=== PATIENT | male | born 1955 | race Caucasian/White ===

== ENCOUNTER 2016-08-28 10:36 | Inpatient (IN) | payer BC ==
[~2016-08-28] VITALS: Ht 160 cm; Wt 68.2 kg
[2016-08-28] VITALS (12 sets, daily range): BP systolic 114–144; BP diastolic 64–80; PULSE 72–102; RESP 14; TEMP 95.2–98.8; O2SAT 98–100
[2016-08-28] MEDS ORDERED: PROPOFOL 1000 MG/100 ML INJ 100 ML ONE (10:41)
[2016-08-28] MEDS ORDERED: MANNITOL INJ 50 ML ONE ×3 (10:42→11:53)
[2016-08-28] MEDS ORDERED: LIDOCAINE HCL 2% 100 MG/5 ML SYRINGE ONE (10:44)
[2016-08-28] MEDS ORDERED: ENALAPRILAT 1.25 MG/ML VIAL IV PRN (11:00)
[2016-08-28] MEDS ORDERED: SODIUM CHLORIDE 0.9% FLUSH 10 ML FLUSH IV FLUSH PRN (11:00)
[2016-08-28] MEDS ORDERED: MISCELLANEOUS NURSING INFORMATION XX SCH ×2 (11:00→14:30)
[2016-08-28] MEDS ORDERED: ONDANSETRON HCL 4 MG/2 ML VIAL IV PRN ×3 (11:00→14:30)
[2016-08-28] MEDS ORDERED: PROPOFOL 1000 MG/100 ML INJ 100 ML IV SCH ×2 (11:00→11:15)
[2016-08-28] MEDS ORDERED: CHLORHEXIDINE GLUCONATE 2 % 1 PACK (2 CLOTHS) TOP PRN ×2 (11:00→14:30)
[2016-08-28] MEDS ORDERED: fentaNYL DRIP 250 ML IV SCH (11:00)
[2016-08-28] MEDS ORDERED: SODIUM CHLOR 0.9% 1000 ML INJ 1,000 ML IV SCH (11:00)
[2016-08-28 11:03] LABS: I-STAT POTASSIUM 3.3 MMOL/L (3.5-4.9)
[2016-08-28 11:04] LABS: AUTOMATED NEUTROPHIL # 5.5 TH/MM3 (1.8-7.7); BASOPHIL # 0.1 TH/MM3 (0-0.2); EOSINOPHIL # 0.4 TH/MM3 (0-0.4); EOSINOPHIL % 4.4 % (0.0-4.0); HEMATOCRIT 43.5 % (39.0-51.0); HEMO FLAGS DIFF FINAL; LYMPHOCYTE # 3.2 TH/MM3 (1.0-4.8); MEAN CELL VOLUME 86.8 FL (80.0-100.0); MEAN CORPUSCULAR HEMOGLOBIN 29.5 PG (27.0-34.0); MONO % 5.2 % (0.0-8.0); NEUT % 56.4 % (16.0-70.0); PLATELET COUNT 231 TH/MM3 (150-450); RED BLOOD COUNT 5.01 MIL/MM3 (4.50-5.90); RED CELL DISTRIBUTION WIDTH 13.3 % (11.6-17.2); WHITE BLOOD COUNT 9.8 TH/MM3 (4.0-11.0)
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
[2016-08-28 11:07] LABS: APTT (PATIENT) 21.6 SEC (24.3-30.1); PROTHROMBIN TIME - PATIENT 10.7 SEC (9.8-11.6)
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
[2016-08-28] MEDS ORDERED: ETOMIDATE 20 MG/10 ML VIAL IVP ONE (11:15)
[2016-08-28] MEDS ORDERED: MANNITOL 12.5 GM/50 ML VIAL IV ONE (11:15)
[2016-08-28] MEDS ORDERED: SODIUM CHLORIDE 0.9% FLUSH 10 ML FLUSH IVF PRN (11:15)
[2016-08-28] MEDS ORDERED: ROCURONIUM INJ 50 MG/5 ML VIAL IV ONE (11:15)
[2016-08-28] MEDS ORDERED: SUCCINYLCHOLINE CHLORIDE 200 MG/10 ML VIAL IVP ONE (11:15)
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
[2016-08-28] MEDS ORDERED: IOHEXOL 350 MG/ML 10 ML VIAL (for RAD DIAG) IV ONE (11:20)
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
[2016-08-28] MEDS ORDERED: SUCCINYLCHOLINE CHLORIDE 200 MG/10 ML VIAL ONE (11:55)
[2016-08-28] MEDS ORDERED: PROPOFOL 200 MG/20 ML AMP IV ONE (12:00)
[2016-08-28] MEDS ORDERED: ePHEDrine/NS 25 MG/5 ML SYR IV ONE (12:00)
[2016-08-28] MEDS ORDERED: LACTATED RINGER'S 1000 ML INJ 1,000 ML IV ONE (12:00)
[2016-08-28] MEDS ORDERED: SODIUM CHLORID 0.9% 500 ML INJ 500 ML IV ONE (12:00)
[2016-08-28] MEDS ORDERED: PHENYLEPH/NS 1000 MCG/10 ML SYR IV ONE (12:00)
[2016-08-28] MEDS ORDERED: ceFAZolin 2 GM PREMIX 50 ML ONE (12:22)
[2016-08-28] MEDS ORDERED: VANCOMYCIN HCL 1000 MG VIAL ONE (12:22)
[2016-08-28] MEDS ORDERED: LIDOCAINE 1%/EPINEPHrine 1:100,000 SOLN 30 ML VIAL OTHER ONE (12:24)
[2016-08-28] MEDS ORDERED: THROMBIN (TOPICAL) 5,000 UNIT VIAL TOP ONE (12:24)
[2016-08-28] MEDS ORDERED: GENTAMICIN SULFATE 80 MG/2 ML VIAL IRRIGATION ONE (12:24)
[2016-08-28] MEDS ORDERED: GELFOAM SIZE 100 TOP ONE (12:24)
[2016-08-28] MEDS ORDERED: fentaNYL CITRATE 250 MCG/5 ML AMP ONE (12:30)
[2016-08-28] MEDS ORDERED: levETIRAcetam 500 MG/5 ML VIAL IV ONE (12:30)
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
[2016-08-28 12:59] LABS: BLOOD GAS BASE EXCESS -4.3 mmol/L (-2-2); BLOOD GAS CARBOXYHEMOGLOBIN 1.4 % (0-4); BLOOD GAS HCO3 20 mmol/L (22-26); BLOOD GAS METHEMOGLOBIN 1.1 % (0-2); BLOOD GAS O2 HGB SATURATION 97 % (90-100); BLOOD GAS PCO2 34 mmHg (38-42); BLOOD GAS PO2 266 mmHg (61-120); BLOOD GAS TOTAL HGB 12.7 G/DL (12.0-16.0); CRITICAL VALUE NO; FIO2 100 %; OXYGEN DEVICE VENTILATOR; TEMP CORR TO 98.6
[2016-08-28 13:00] LABS: DRAW SITE ART LINE; HEMATOCRIT 37.4 % (39.0-51.0); REVIEW FLAG FINAL; STAT YES
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
[2016-08-28] MEDS ORDERED: MORPHINE SULFATE 4 MG/ML INJ IV PUSH PRN ×2 (13:15)
[2016-08-28] MEDS ORDERED: CALCIUM GLUCONATE 10% 1 GM/10 ML VIAL IV PRN (13:15)
[2016-08-28] MEDS ORDERED: BISACODYL 10 MG SUPP RECTAL PRN ×2 (13:15→14:30)
[2016-08-28] MEDS ORDERED: ACETAMINOPHEN 325 MG TAB PO PRN (13:15)
[2016-08-28] MEDS ORDERED: ACETAMINOPHEN/HYDROcodone 325 MG/10 MG TAB PO PRN ×2 (13:15)
[2016-08-28] MEDS ORDERED: MAGNESIUM SULFATE INJ 4 GM in SODIUM CHLORIDE 0.9% INJ 100 ML IV PRN (13:15)
[2016-08-28] MEDS ORDERED: POTASSIUM CHLOR 20 MEQ PREMIX 100 ML IV PRN (13:15)
[2016-08-28] MEDS ORDERED: SODIUM CHLORIDE 0.9% FLUSH 5 ML FLUSH IVF PRN (13:15)
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
[2016-08-28] MEDS ORDERED: PHENYLEPHRINE HCL 10 MG/ML VIAL ONE ×2 (13:53→17:52)
[2016-08-28] MEDS: levETIRAcetam INJ 500 MG in SODIUM CHLORIDE 0.9% INJ 100 ML IV SCH (14:00)
[2016-08-28] MEDS ORDERED: PANTOPRAZOLE SODIUM 40 MG VIAL IVP SCH (14:00)
[2016-08-28] MEDS ORDERED: NOREPINEPHRINE 4 MG/4 ML AMP ONE (14:21)
[2016-08-28 14:30] LABS: BLOOD GAS BASE EXCESS -5.9 mmol/L (-2-2); BLOOD GAS CARBOXYHEMOGLOBIN 0.8 % (0-4); BLOOD GAS HCO3 18 mmol/L (22-26); BLOOD GAS METHEMOGLOBIN 0.9 % (0-2); BLOOD GAS O2 HGB SATURATION 98 % (90-100); BLOOD GAS OXYGEN CONTENT 16.3 Vol % (12.0-20.0); BLOOD GAS PCO2 33 mmHg (38-42); BLOOD GAS PO2 224 mmHg (61-120); BLOOD GAS TOTAL HGB 11.5 G/DL (12.0-16.0); CRITICAL VALUE NO; TEMP CORR TO 98.6
[2016-08-28] MEDS ORDERED: MAGNESIUM HYDROXIDE SUSP 30 ML CUP PO PRN (14:30)
[2016-08-28] MEDS ORDERED: PANTOPRAZOLE SODIUM 40 MG VIAL IV SCH (14:30)
[2016-08-28] MEDS ORDERED: SENNOSIDES 8.6 MG TAB PO PRN (14:30)
[2016-08-28] MEDS ORDERED: LACTULOSE SYRUP 20 GM/30 ML CUP PO PRN (14:30)
[2016-08-28 14:31] LABS: DRAW SITE ART LINE; FIO2 40 %; OXYGEN DEVICE VENTILATOR; STAT YES; VENT SETTINGS PRVC12/550/PEEP5IT1.
--- NOTE | 2016-08-28 15:07 | RADRPT ---
EXAM DATE/TIME: 08/28/2016 14:34 [facility] COMPARISON: No previous studies available for comparison. INDICATIONS : Post intubation. MEDICAL HISTORY : None. SURGICAL HISTORY : None. ENCOUNTER: Initial ACUITY: 1 day PAIN SCORE: Non-responsive. LOCATION: Bilateral chest FINDINGS: A single view of the chest demonstrates the lungs to be symmetrically aerated without evidence of mas s, infiltrate or effusion. Endotracheal tube tip 4 cm above caity. Nasogastric tube tip in stomach. Right jugular central line with tip in the cavoatrial junction. No pneumothorax. The cardiomediastin al contours are unremarkable. Osseous structures are intact. CONCLUSION: No acute disease. Sebastián Whyte MD on August 28, 2016 at 15:04 Board Certified Radiologist. This report was verified electronically.
[2016-08-28] MEDS ORDERED: LIDOCAINE HCL 1% 50 ML VIAL INFIL ONE (15:45)
[2016-08-28] MEDS ORDERED: 3% SALINE INJ 500 ML IV ONE ×2 (16:00→22:00)
[2016-08-28] MEDS: ceFAZolin 2 GM PREMIX 50 ML IV SCH ×2 (16:32→23:35)
[2016-08-28] MEDS: NS + KCL 20 MEQ INJ 1,000 ML IV SCH (16:32)
[2016-08-28] MEDS ORDERED: SODIUM CHLORIDE 23.4% INJ 240 MEQ in SYRINGE/BAG 1 EA IV ONE (17:15)
[2016-08-28 17:21] LABS: MAGNESIUM 1.7 MG/DL (1.5-2.5)
[2016-08-28] MEDS ORDERED: TERBUTALINE INJ 1 MG/ML AMP SQ PRN ×2 (18:00→22:15)
[2016-08-28] MEDS ORDERED: PHENYLEPHRINE INJ 160 MG in DEXTROSE 5% IN WATE 500 ML INJ 484 ML IV SCH ×2 (18:00)
[2016-08-28] MEDS ORDERED: LIDOCAINE HCL 1% 20 ML VIAL E-TRACHE PRN (18:30)
[2016-08-28] MEDS ORDERED: fentaNYL CITRATE 250 MCG/5 ML AMP IV ONE (18:30)
[2016-08-28] MEDS: CHLORHEXIDINE 0.12% (ORAL KIT) 15 ML CUP MT SCH (20:00)
[2016-08-28 20:44] LABS: APTT (PATIENT) 23.1 SEC (24.3-30.1); PROTHROMBIN TIME - PATIENT 11.4 SEC (9.8-11.6)
[2016-08-28] MEDS ORDERED: DOCUSATE SODIUM 100 MG/10 ML UDC PO SCH (21:00)
[2016-08-28] MEDS ORDERED: DOCUSATE SODIUM 100 MG CAP PO SCH (21:00)
[2016-08-28] MEDS: SODIUM CHLORIDE 0.9% FLUSH 5 ML FLUSH IVF SCH (21:00)
[2016-08-28] MEDS: 3% SALINE INJ 500 ML IV SCH (22:00)
[2016-08-28] MEDS ORDERED: PHENYLEPHRINE IV SCH (22:15)
[2016-08-28] MEDS ORDERED: SODIUM CHLOR 0.9% IV SCH (22:15)
[2016-08-28] MEDS ORDERED: PHENYLEPHRINE HCL 80 MG/D5W 492 ML ADMIX IV SCH ×2 (22:15)
[2016-08-28] MEDS: PROPOFOL 1000 MG/100 ML INJ 100 ML IV SCH (22:16)
[2016-08-28] MEDS: fentaNYL DRIP 250 ML IV SCH (22:16)
[2016-08-28] MEDS: DOCUSATE SODIUM 50 MG/SENNA 8.6 MG TAB PO SCH (22:16)
[2016-08-28] MEDS ORDERED: PHENYLEPHRINE INJ 160 MG in SODIUM CHLORID 0.9% 500 ML INJ 484 ML IV SCH (22:30)
[2016-08-28] MEDS: NOREPINEPHRINE INJ 4 MG in SODIUM CHLOR 0.9% 250 ML INJ 246 ML IV SCH (22:41)
[2016-08-29] VITALS (19 sets, daily range): BP systolic 125–144; BP diastolic 60–73; PULSE 48–84; RESP 12–16; TEMP 96.8–99; O2SAT 100
[2016-08-29] MEDS: NS + KCL 20 MEQ INJ 1,000 ML IV SCH (02:00)
[2016-08-29] MEDS: levETIRAcetam INJ 500 MG in SODIUM CHLORIDE 0.9% INJ 100 ML IV SCH ×2 (02:16→14:00)
--- NOTE | 2016-08-29 03:08 | RADRPT ---
EXAM DATE/TIME: 08/29/2016 02:29 [facility] COMPARISON: CHEST SINGLE AP, August 28, 2016, 14:34. INDICATIONS : Short of breath. MEDICAL HISTORY : None. SURGICAL HISTORY : None. ENCOUNTER: Subsequent ACUITY: 1 day PAIN SCORE: 0/10 LOCATION: Bilateral chest FINDINGS: A single view of the chest demonstrates the lungs to be symmetrically aerated without evidence of mas s, infiltrate or effusion. The endotracheal tube and nasogastric tube are both in good position The cardiomediastinal contours are unremarkable. Osseous structures are intact. CONCLUSION: Normal examination. The endotracheal tube and nasogastric tube are both in good position Michoacano Hutchison MD on August 29, 2016 at 3:06 Board Certified Radiologist. This report was verified electronically.
[2016-08-29 03:49] LABS: BLOOD GAS BASE EXCESS -6.1 mmol/L (-2-2); BLOOD GAS HCO3 18 mmol/L (22-26); BLOOD GAS METHEMOGLOBIN 0.6 % (0-2); BLOOD GAS O2 HGB SATURATION 98 % (90-100); BLOOD GAS OXYGEN CONTENT 12.1 Vol % (12.0-20.0); BLOOD GAS PCO2 29 mmHg (38-42); BLOOD GAS PO2 173 mmHg (61-120); BLOOD GAS TOTAL HGB 8.5 G/DL (12.0-16.0); CRITICAL VALUE NO; OXYGEN DEVICE VENTILATOR; TEMP CORR TO 98.6
[2016-08-29 03:50] LABS: DRAW SITE ALINE; FIO2 30 %; STAT NO
[2016-08-29] MEDS ORDERED: CHLORHEXIDINE GLUCONATE 2 % 1 PACK (2 CLOTHS) TOP SCH (04:00)
[2016-08-29] MEDS: CHLORHEXIDINE GLUCONATE 2 % 1 PACK (2 CLOTHS) TOP SCH (04:00)
[2016-08-29] MEDS ORDERED: LIDOCAINE HCL 2% 100 MG/5 ML SYRINGE ONE (04:27)
[2016-08-29] MEDS ORDERED: EPINEPHrine HCL (1:10,000) 1 MG/10 ML SYRINGE ONE (04:27)
[2016-08-29] MEDS ORDERED: ATROPINE SULFATE 1 MG/10 ML SYRINGE ONE (04:27)
--- NOTE | 2016-08-29 05:33 | RADRPT ---
EXAM DATE/TIME: 08/29/2016 05:10 [place] COMPARISON: CT BRAIN W/O CONTRAST, August 28, 2016, 11:00. INDICATIONS : Follow up trauma; post craniotomy. RADIATION DOSE: 64.98 CTDIvol (mGy) MEDICAL HISTORY : None SURGICAL HISTORY : Craniotomy. ENCOUNTER: Subsequent ACUITY: 1 day PAIN SCALE: Non-responsive LOCATION: cranial TECHNIQUE: Multiple contiguous axial images were obtained of the head. Using automated exposure control and adj ustment of the mA and/or kV according to patient size, radiation dose was kept as low as reasonably a chievable to obtain optimal diagnostic quality images. FINDINGS: The patient's had a right sided craniotomy with [address] The bone flap remains rem caterina. There is a tiny amount remaining pneumocephalus. There is significant soft tissue edema and flu id overlying the drains. There is significant mass effect in the right cerebral hemisphere with shift of the third ventricle 7 mm from right to left, stable. There is continued opacification of the righ t lateral ventricle due to the mass effect. There is stable intra-axial hemorrhage in the right suprasellar cistern and MCA distribution imp roved from the previous study. There is some subarachnoid hemorrhage in the right side of the tentori um and in the right high parietal region unchanged. A left-sided frontal lobe intracranial pressure monitor has been placed and there is some surrounding hemorrhage which is new from the previous study. The hemorrhage measures 1.2 x 1.5 cm acr oss. There is continued narrowing of the right suprasellar cistern. The foramen magnum remains paten t. There some mild narrowing of the right paramesencephalic cisterns with some adjacent layering suba rachnoid hemorrhage unchanged CONCLUSION: Overall similar exam with significant edema and hemorrhage throughout the right cerebral hemisphere s tatus post craniotomy and 2 drains been placed. Left frontal pressure catheter placed with some surro unding hemorrhage measuring 12 x 15 mm. Michoacano Hutchison MD on August 29, 2016 at 5:24 Board Certified Radiologist. This report was verified electronically.
[2016-08-29 05:49] LABS: AUTOMATED NEUTROPHIL # 8.6 TH/MM3 (1.8-7.7); BASOPHIL % 0.1 % (0.0-2.0); HEMATOCRIT 24.3 % (39.0-51.0); HEMO FLAGS DIFF FINAL; LYMPH % 11.5 % (9.0-44.0); LYMPHOCYTE # 1.3 TH/MM3 (1.0-4.8); MEAN CORPUSCULAR HEMOGLOBIN 29.4 PG (27.0-34.0); MEAN CORPUSCULAR HGB CONC 33.4 % (32.0-36.0); MONO % 10.8 % (0.0-8.0); NEUT % 77.6 % (16.0-70.0); PLATELET COUNT 196 TH/MM3 (150-450); RED BLOOD COUNT 2.77 MIL/MM3 (4.50-5.90); RED CELL DISTRIBUTION WIDTH 13.4 % (11.6-17.2)
[2016-08-29 06:18] LABS: BICARBONATE 22.8 MEQ/L (21.0-32.0); MAGNESIUM 1.8 MG/DL (1.5-2.5)
[2016-08-29 06:45] LABS: CALCIUM-PROTEIN CORRECTED 7.4 MG/DL (8.5-10.1)
[2016-08-29] MEDS ORDERED: CALCIUM GLUCONATE INJ 1 GM in SODIUM CHLORIDE 0.9% INJ 100 ML IV ONE (07:00)
[2016-08-29] MEDS: MAGNESIUM SULFATE 1 GM PREMIX 100 ML IV SCH ×2 (08:08→08:45)
[2016-08-29] MEDS: MIDAZOLAM 100 MG/ML INJ 100 ML IV SCH (08:08)
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
[2016-08-29] MEDS: 3% SALINE INJ 500 ML IV SCH (08:46)
[2016-08-29] MEDS: PANTOPRAZOLE SOD 40 MG DELAYED RELEASE TAB PO SCH (08:47)
[2016-08-29] MEDS: SODIUM CHLORIDE 0.9% FLUSH 5 ML FLUSH IVF SCH ×2 (09:00→21:00)
[2016-08-29] MEDS: CHLORHEXIDINE 0.12% (ORAL KIT) 15 ML CUP MT SCH ×2 (09:53→20:00)
[2016-08-29] MEDS: ceFAZolin 2 GM PREMIX 50 ML IV SCH (09:53)
[2016-08-29] MEDS: PANTOPRAZOLE SODIUM 40 MG VIAL IVP SCH (09:53)
[2016-08-29] MEDS: DOCUSATE SODIUM 50 MG/SENNA 8.6 MG TAB PO SCH ×2 (09:54→21:25)
[2016-08-29] MEDS: fentaNYL DRIP 250 ML IV SCH ×2 (09:56→21:20)
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
--- NOTE | 2016-08-29 14:01 | HHI.CCPN ---
Subjective 24 Hour Review/Hospital Course 08/29/16 Patient is stable following emergent craniotomy with neurosurgery yesterday Repeat head CT shows postsurgical changes with small reaccumulation of blood Will continue to rest patient today and maintain cerebral perfusion pressures using vasopressors as necessary Objective Vital Signs Date Time Temp Pulse Resp B/P Pulse Ox O2 Delivery O2 Flow Rate FiO2 08/29/16 12:42 100 30 08/29/16 10:00 69 08/29/16 08:00 96.8 16 126/60 08/29/16 07:00 Mechanical Ventilator Intake and Output 08/28/16 08/28/16 08/28/16 07:59 15:59 23:59 Intake Total 1424 ml Output Total 60 ml 1170 ml Balance -60 ml 254 ml Result Diagram: 08/29/16 0535 08/29/16 1049 Other Results Laboratory Tests Test 08/28/16 08/29/16 14:18 03:39 Blood Gas Puncture Site ART [facility] [place] Blood Gas Patient Temperature 98.6 98.6 Blood Gas HCO3 18 mmol/L 18 mmol/L (22-26) (22-26) Blood Gas Base Excess -5.9 mmol/L -6.1 mmol/L (-2-2) (-2-2) Blood Gas Oxygen Saturation 98 % (90-100) 98 % (90-100) Arterial Blood pH 7.37 7.41 (7.380-7.420) (7.380-7.420) Arterial Blood Partial 33 mmHg (38-42) 29 mmHg (38-42) Pressure CO2 Arterial Blood Partial 224 mmHg 173 mmHg Pressure O2 (61-120) (61-120) Arterial Blood Oxygen Content 16.3 Vol % 12.1 Vol % (12.0-20.0) (12.0-20.0) Arterial Blood 0.8 % (0-4) 1.0 % (0-4) Carboxyhemoglobin Arterial Blood Methemoglobin 0.9 % (0-2) 0.6 % (0-2) Blood Gas Hemoglobin 11.5 G/DL 8.5 G/DL (12.0-16.0) (12.0-16.0) Oxygen Delivery Device VENTILATOR VENTILATOR Blood Gas Ventilator Setting [id number]. SEE COMMENT Blood Gas Inspired Oxygen 40 % 30 % Imaging Last [address] 08/29/16 0000 Signed Impressions: Service Date/Time: Monday, August 29, 2016 05:10 - CONCLUSION: Overall similar exam with significant edema and hemorrhage throughout the right cerebral hemisphere status post craniotomy and 2 drains been placed. Left frontal pressure catheter placed with some surrounding hemorrhage measuring 12 x 15 mm. Michoacano Hutchison MD Chest X-Ray 08/29/16 0000 Signed Impressions: Service Date/Time: Monday, August 29, 2016 02:29 - CONCLUSION: Normal examination. The endotracheal tube and nasogastric tube are both in good position Michoacano Hutchison MD Exam NURSING ADMINISTRATOR Intubated, sedated status post craniotomy, ICP currently 8 and have always been low Hemodynamic/Cardiac Regular rate and rhythm with intermittent bradycardia, stable Pulmonary/Respiratory Clear to auscultation bilaterally, requiring full ventilator support Abdomen/GI Nutrition Abdomen soft nontender nondistended Renal/I&O Stable with iatrogenic hypernatremia to prevent and treat brain swelling Hematologic Acute blood loss anemia, stable Urinary Catheter Assessment Urinary Catheter: Yes Assessment to: Continue Assessment and Plan Plan Neurologic-continue sedation and pain medication, maintain cerebral perfusion pressure and treat ICPs as needed Pulmonary-continue full ventilator support, wean as tolerated, aggressive pulmonary toilet Cardiac-continue hemodynamic monitoring, levothyroid to push mean arterial pressure in order to obtain proper cerebral perfusion pressure GI-start tube feeds and rapidly advanced to goal for nutritional support -continue Early for hemodynamic monitoring ID-no active issues FEN-start tube feeds today, continue to maintain hypernatremia in the 150-160 range Dispo-continue ICU care, patient remains critically ill with severe traumatic brain injury, acute respiratory failure, and dysphagia Total critical care time 35 minutes Jus Real MD Aug 29, 2016 14:01
[2016-08-29 16:52] LABS: MAGNESIUM 2.2 MG/DL (1.5-2.5)
[2016-08-29] MEDS ORDERED: POTASSIUM PHOSPHATE/SODIUM PHOSPHATE 250 MG TAB PO ONE (18:00)
[2016-08-29] MEDS: NOREPINEPHRINE INJ 4 MG in SODIUM CHLOR 0.9% 250 ML INJ 246 ML IV SCH (21:20)
[2016-08-30] VITALS (18 sets, daily range): BP systolic 132–150; BP diastolic 46–64; PULSE 65–98; RESP 15–19; TEMP 96.8–100.2; O2SAT 100
[2016-08-30] MEDS: levETIRAcetam INJ 500 MG in SODIUM CHLORIDE 0.9% INJ 100 ML IV SCH ×2 (02:40→13:36)
[2016-08-30 03:49] LABS: BLOOD GAS CARBOXYHEMOGLOBIN 1.1 % (0-4); BLOOD GAS HCO3 21 mmol/L (22-26); BLOOD GAS O2 HGB SATURATION 98 % (90-100); BLOOD GAS OXYGEN CONTENT 10.8 Vol % (12.0-20.0); BLOOD GAS PCO2 33 mmHg (38-42); BLOOD GAS PO2 170 mmHg (61-120); BLOOD GAS TOTAL HGB 7.6 G/DL (12.0-16.0); CRITICAL VALUE NO; OXYGEN DEVICE VENT; TEMP CORR TO 98.6
[2016-08-30 03:50] LABS: DRAW SITE ART LINE; FIO2 30 %; STAT NO; VENT SETTINGS 450/15 5PEEP
[2016-08-30] MEDS: MIDAZOLAM 100 MG/ML INJ 100 ML IV SCH (04:08)
[2016-08-30] MEDS: CHLORHEXIDINE GLUCONATE 2 % 1 PACK (2 CLOTHS) TOP SCH (04:10)
[2016-08-30 04:38] LABS: HEMATOCRIT 23.4 % (39.0-51.0); MEAN CELL VOLUME 86.6 FL (80.0-100.0); MEAN CORPUSCULAR HEMOGLOBIN 29.2 PG (27.0-34.0); MEAN CORPUSCULAR HGB CONC 33.7 % (32.0-36.0); PLATELET COUNT 134 TH/MM3 (150-450); REVIEW FLAG FINAL; WHITE BLOOD COUNT 9.8 TH/MM3 (4.0-11.0)
[2016-08-30 05:16] LABS: MAGNESIUM 2.1 MG/DL (1.5-2.5)
[2016-08-30] MEDS: 3% SALINE INJ 500 ML IV SCH (06:00)
[2016-08-30] MEDS: fentaNYL DRIP 250 ML IV SCH (06:50)
[2016-08-30] MEDS: NOREPINEPHRINE INJ 4 MG in SODIUM CHLOR 0.9% 250 ML INJ 246 ML IV SCH (06:54)
[2016-08-30] MEDS: PROPOFOL 1000 MG/100 ML INJ 100 ML IV SCH (06:55)
[2016-08-30 07:02] LABS: BICARBONATE 25.7 MEQ/L (21.0-32.0); POTASSIUM 3.1 MEQ/L (3.5-5.1)
[2016-08-30 07:20] LABS: CALCIUM-PROTEIN CORRECTED 7.9 MG/DL (8.5-10.1)
[2016-08-30] MEDS: CHLORHEXIDINE 0.12% (ORAL KIT) 15 ML CUP MT SCH ×2 (08:00→20:00)
[2016-08-30] MEDS ORDERED: ICU - D/C ICU ELECTROLYTE ORDERS PRN (08:45)
[2016-08-30] MEDS ORDERED: ICU - POTASSIUM PHOSPHATE MONOBASIC 500 MG TAB PO PRN (08:45)
[2016-08-30] MEDS ORDERED: ICU - POTASSIUM PHOSPHATE 30 MMOL/NS 250 ML IV PRN ×2 (08:45)
[2016-08-30] MEDS ORDERED: ICU - MAGNESIUM OXIDE 400 MG TAB PO PRN (08:45)
[2016-08-30] MEDS ORDERED: ICU - SODIUM PHOSPHATE 30 MMOL/NS 250 ML IV PRN ×2 (08:45)
[2016-08-30] MEDS ORDERED: ICU - CALL ORDERING PHYSICIAN PRN (08:45)
[2016-08-30] MEDS ORDERED: ICU - MAGNESIUM SULFATE 2 GM/NS 100 ML IV PRN ×2 (08:45)
[2016-08-30] MEDS ORDERED: POTASSIUM CHLORIDE 25 MEQ EFFERVESCENT TAB PO PRN (08:45)
[2016-08-30] MEDS ORDERED: ICU - POTASSIUM CHLORIDE/AQUEOUS SOLN 20 MEQ/100 ML IVPB IV PRN (08:45)
[2016-08-30] MEDS ORDERED: ICU - MAGNESIUM SULFATE 4 GM/NS 100 ML IV PRN ×2 (08:45)
[2016-08-30] MEDS: PANTOPRAZOLE SOD 40 MG DELAYED RELEASE TAB PO SCH (08:58)
[2016-08-30] MEDS: PANTOPRAZOLE SODIUM 40 MG VIAL IVP SCH (08:58)
[2016-08-30] MEDS: DOCUSATE SODIUM 50 MG/SENNA 8.6 MG TAB PO SCH ×2 (08:58→22:36)
[2016-08-30] MEDS: SODIUM CHLORIDE 0.9% FLUSH 5 ML FLUSH IVF SCH ×2 (08:58→21:00)
[2016-08-30] MEDS: ARTIFICIAL TEARS OPTH SOLN 15 ML BTL EACH EYE SCH ×2 (10:00→18:00)
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
[2016-08-30] MEDS ORDERED: LACTULOSE SYRUP 20 GM/30 ML CUP PO ONE (10:30)
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
[2016-08-30] MEDS ORDERED: SODIUM CHLOR 0.9% IV SCH (11:30)
[2016-08-30] MEDS ORDERED: NOREPINEPHRINE 16 MG/D5W 250 ML IV SCH ×2 (11:30)
[2016-08-30] MEDS ORDERED: NOREPINEPHRINE IV SCH (11:30)
[2016-08-30] MEDS: ICU - POTASSIUM CHLORIDE/AQUEOUS SOLN 40 MEQ/100 ML IVPB IV PRN (11:33)
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
[2016-08-30] MEDS: ACETAMINOPHEN 325 MG TAB PO PRN (13:35)
[2016-08-30 16:27] LABS: BICARBONATE 27.1 MEQ/L (21.0-32.0); POTASSIUM 3.3 MEQ/L (3.5-5.1)
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
[2016-08-30] MEDS ORDERED: POTASSIUM PHOSPHATE INJ 30 MMOL in SODIUM CHLOR 0.9% 250 ML INJ 250 ML IV ONE (16:45)
[2016-08-30 16:47] LABS: CALCIUM-PROTEIN CORRECTED 7.5 MG/DL (8.5-10.1)
[2016-08-30 17:33] LABS: BLOOD GAS BASE EXCESS 0.5 mmol/L (-2-2); BLOOD GAS CARBOXYHEMOGLOBIN 1.2 % (0-4); BLOOD GAS HCO3 24 mmol/L (22-26); BLOOD GAS METHEMOGLOBIN 0.7 % (0-2); BLOOD GAS O2 HGB SATURATION 98 % (90-100); BLOOD GAS OXYGEN CONTENT 11.5 Vol % (12.0-20.0); BLOOD GAS PCO2 34 mmHg (38-42); BLOOD GAS PO2 159 mmHg (61-120); BLOOD GAS TOTAL HGB 8.1 G/DL (12.0-16.0); CRITICAL VALUE NO; DRAW SITE ART LINE; FIO2 30 %; OXYGEN DEVICE VENTILATOR; TEMP CORR TO 98.6; VENT SETTINGS AC/19/450/+5
[2016-08-30 17:34] LABS: STAT NO
[2016-08-30] MEDS ORDERED: CALCIUM GLUCONATE INJ 1 GM in SODIUM CHLORIDE 0.9% INJ 100 ML IV ONE (18:30)
--- NOTE | 2016-08-30 21:25 | MG ---
cc: CCList Lab No: [id number] Date: 08/30/16 Age: Sex: M Race: TECHNIQUE 17 channel EEG. DESCRIPTION The background rhythm reveals generalized slowing with a frequency of 3-5 Hz. There is a burst suppression type of pattern. There is periodic sharp activity seen as well over the right hemisphere consistent with periodic lateralizing epileptiform discharges or PLEDS. They occur at a frequency of 1 every 3-10 seconds. No other lateralizing features are identified. Occasionally, there is some sharp activity of the left foot predominantly over the right. INTERPRETATION Abnormal study in the base of generalized slowing consistent with severe encephalopathy. In addition, periodic lateralizing epileptiform discharges are identified over the right hemisphere. MD SHANDA Shaikh/MYNOR /9:08 PM /9:21 PM
[2016-08-31] VITALS (19 sets, daily range): BP systolic 111–170; BP diastolic 50–69; PULSE 64–85; RESP 15–21; TEMP 97.7–99.5; O2SAT 100
[2016-08-31 00:26] LABS: POTASSIUM 2.9 MEQ/L (3.5-5.1)
[2016-08-31] MEDS: ICU - POTASSIUM CHLORIDE/AQUEOUS SOLN 40 MEQ/100 ML IVPB IV PRN ×2 (00:36→17:01)
[2016-08-31] MEDS: MIDAZOLAM 100 MG/ML INJ 100 ML IV SCH ×2 (00:37→15:55)
[2016-08-31] MEDS: PROPOFOL 1000 MG/100 ML INJ 100 ML IV SCH ×4 (00:38→22:48)
[2016-08-31] MEDS: fentaNYL DRIP 250 ML IV SCH (00:38)
[2016-08-31] MEDS: ARTIFICIAL TEARS OPTH SOLN 15 ML BTL EACH EYE SCH ×3 (02:00→17:01)
[2016-08-31] MEDS: levETIRAcetam INJ 500 MG in SODIUM CHLORIDE 0.9% INJ 100 ML IV SCH (02:41)
[2016-08-31 03:36] LABS: BLOOD GAS BASE EXCESS 0.8 mmol/L (-2-2); BLOOD GAS CARBOXYHEMOGLOBIN 1.4 % (0-4); BLOOD GAS HCO3 24 mmol/L (22-26); BLOOD GAS METHEMOGLOBIN 0.9 % (0-2); BLOOD GAS O2 HGB SATURATION 97 % (90-100); BLOOD GAS OXYGEN CONTENT 10.1 Vol % (12.0-20.0); BLOOD GAS PCO2 29 mmHg (38-42); BLOOD GAS PO2 156 mmHg (61-120); BLOOD GAS TOTAL HGB 7.2 G/DL (12.0-16.0); TEMP CORR TO 98.6
[2016-08-31 03:37] LABS: CRITICAL VALUE YES; OXYGEN DEVICE VENTILATOR
[2016-08-31 03:38] LABS: DRAW SITE ART LINE; STAT NO
[2016-08-31 03:45] LABS: VENT SETTINGS PRVC/AC
[2016-08-31 03:46] LABS: FIO2 30 %
[2016-08-31] MEDS: CHLORHEXIDINE GLUCONATE 2 % 1 PACK (2 CLOTHS) TOP SCH (04:00)
[2016-08-31 05:57] LABS: AUTOMATED NEUTROPHIL # 5.7 TH/MM3 (1.8-7.7); BASOPHIL % 0.2 % (0.0-2.0); EOSINOPHIL # 0.3 TH/MM3 (0-0.4); EOSINOPHIL % 3.6 % (0.0-4.0); LYMPH % 11.3 % (9.0-44.0); LYMPHOCYTE # 0.9 TH/MM3 (1.0-4.8); MEAN CELL VOLUME 85.4 FL (80.0-100.0); MEAN CORPUSCULAR HGB CONC 35.2 % (32.0-36.0); MONO % 11.2 % (0.0-8.0); NEUT % 73.7 % (16.0-70.0); PLATELET COUNT 117 TH/MM3 (150-450); RED BLOOD COUNT 2.44 MIL/MM3 (4.50-5.90); RED CELL DISTRIBUTION WIDTH 14.4 % (11.6-17.2); WHITE BLOOD COUNT 7.7 TH/MM3 (4.0-11.0)
[2016-08-31 06:01] LABS: HEMO FLAGS DIFF FINAL
[2016-08-31 06:02] LABS: HEMATOCRIT 20.8 % (39.0-51.0)
[2016-08-31 06:24] LABS: MAGNESIUM 2.1 MG/DL (1.5-2.5)
[2016-08-31] MEDS: CHLORHEXIDINE 0.12% (ORAL KIT) 15 ML CUP MT SCH ×2 (08:00→20:49)
[2016-08-31] MEDS: SODIUM CHLORIDE 0.9% FLUSH 5 ML FLUSH IVF SCH ×2 (09:00→20:49)
[2016-08-31] MEDS: PANTOPRAZOLE SODIUM 40 MG VIAL IVP SCH (09:00)
[2016-08-31] MEDS ORDERED: LACTULOSE SYRUP 20 GM/30 ML CUP PO SCH (09:00)
[2016-08-31] MEDS: DOCUSATE SODIUM 50 MG/SENNA 8.6 MG TAB PO SCH ×2 (09:00→20:49)
--- NOTE | 2016-08-31 09:12 | RADRPT ---
EXAM DATE/TIME: 08/31/2016 08:42 [place] COMPARISON: CT BRAIN W/O CONTRAST, August 29, 2016, 5:10. INDICATIONS : Follow up, cranial hemorrhage. Emergent craniotomy 3 days ago. RADIATION DOSE: 56.4 CTDIvol (mGy) MEDICAL HISTORY : Cardiac SURGICAL HISTORY : CABG ENCOUNTER: Subsequent ACUITY: 3 days PAIN SCALE: Non-responsive LOCATION: cranial TECHNIQUE: Multiple contiguous axial images were obtained of the head. Using automated exposure control and adj ustment of the mA and/or kV according to patient size, radiation dose was kept as low as reasonably a chievable to obtain optimal diagnostic quality images. FINDINGS: The examination demonstrates right-sided craniotomy. There is a small area of intraparenchymal hemorrhage measuring approximately 1.5 cm adjacent to the p atient's ICP. There is moderate extra-axial hemorrhage along the craniotomy defect. This is unchanged compared to p revious examination. There is a surgical drain in good position. The The examination demonstrates some loss of the dickerson right junction along the inferior aspect of the ri ght parietal cortex. There is approximately 4.5 mm of [id number] falcine shift. The shift is impro jamila when compared to prior exam. The ventricles are normal in size. Imaging through the posterior fossa demonstrates no hemorrhage layering along the tentorium. The four th ventricle is intact. CONCLUSION: 1. Interval reduction in the amount of [id number] falcine shift. This now measures approximately 4 .5 mm. the shift measured approximately 7.4 mm on previous. 2. Continued intraparenchymal and extra-axial hemorrhage as described above. 3. Patient is post right craniotomy with removal of most of the right parietal bone. Shahid Ross MD on August 31, 2016 at 9:07 Board Certified Radiologist. This report was verified electronically.
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
[2016-08-31] MEDS ORDERED: levETIRAcetam 1000 MG INJ 100 ML IV ONE (09:45)
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
[2016-08-31] MEDS ORDERED: POTASSIUM PHOSPHATE/SODIUM PHOSPHATE 250 MG TAB OG-TUBE ONE (10:00)
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
[2016-08-31 11:03] LABS: BLOOD GAS BASE EXCESS 0.8 mmol/L (-2-2); BLOOD GAS CARBOXYHEMOGLOBIN 1.3 % (0-4); BLOOD GAS HCO3 24 mmol/L (22-26); BLOOD GAS METHEMOGLOBIN 0.9 % (0-2); BLOOD GAS O2 HGB SATURATION 97 % (90-100); BLOOD GAS OXYGEN CONTENT 13.4 Vol % (12.0-20.0); BLOOD GAS PCO2 29 mmHg (38-42); BLOOD GAS PO2 154 mmHg (61-120); BLOOD GAS TOTAL HGB 9.5 G/DL (12.0-16.0); TEMP CORR TO 98.6
[2016-08-31 11:04] LABS: CRITICAL VALUE YES; DRAW SITE ART LINE; FIO2 30 %; NUMBER OF ARTERIAL PUNCTURES 0; OXYGEN DEVICE VENTILATOR; STAT NO; ULNAR PULSE PRESENT; VENT SETTINGS PRVC/18/450/0.85/+5
[2016-08-31 11:34] LABS: BACTERIA, URINE RARE /hpf; BLOOD, URINE SMALL (NEG); COMMENT (UR) CATH-CULTURE IND; CULTURE IF INDICATED CATH CULTURE IND; GLUCOSE,URINE 70 mg/dL (NEG); KETONE, URINE NEG (NEG); MUCUS URINE FEW /lpf (OCC); NITRITE,URINE NEG (NEG); PH, URINE 7.5 (5.0-8.5); URINE COLOR YELLOW (YELLW/STRAW)
[2016-08-31 11:41] LABS: BICARBONATE 25.6 MEQ/L (21.0-32.0); POTASSIUM 3.6 MEQ/L (3.5-5.1)
--- NOTE | 2016-08-31 11:44 | HHI.CCPN ---
Subjective 24 Hour Review/Hospital Course 08/29/16 Patient is stable following emergent craniotomy with neurosurgery yesterday Repeat head CT shows postsurgical changes with small reaccumulation of blood Will continue to rest patient today and maintain cerebral perfusion pressures using vasopressors as necessary 08/30/16 Patient remains critically ill, although off the vasopressors, he does require deep sedation to maintain his ICPs CT scan is consistent with severe traumatic brain injury and a guarded prognosis at this point 08/31/16 EEG revealed seizure activity, neurology has been consult Discussed prognosis with son at the bedside, also discussed the likely need for tracheostomy and gastrostomy tube placement Patient's ICP monitor is clotted, will require revision or new ICP monitor At this point will continue sedation and IV pain medication He's tolerating his tube feeds at goal and we will continue to maintain his sodium in the 150-160 range Objective Vital Signs Date Time Temp Pulse Resp B/P Pulse Ox O2 Delivery O2 Flow Rate FiO2 08/31/16 10:57 100 30 08/31/16 10:00 64 08/31/16 08:00 99.0 21 128/50 08/31/16 07:00 Mechanical Ventilator Intake and Output 08/30/16 08/30/16 08/31/16 08:00 16:00 00:00 Intake Total 1274 ml 1457 ml 1530 ml Output Total 365 ml 550 ml 805 ml Balance 909 ml 907 ml 725 ml Result Diagram: 08/31/16 0537 08/31/16 0537 Other Results Laboratory Tests Test 08/30/16 08/31/16 08/31/16 17:20 03:19 10:50 Blood Gas Puncture Site ART LINE ART LINE ART LINE Blood Gas Patient Temperature 98.6 98.6 98.6 Blood Gas HCO3 24 mmol/L 24 mmol/L 24 mmol/L (22-26) (22-26) (22-26) Blood Gas Base Excess 0.5 mmol/L 0.8 mmol/L 0.8 mmol/L (-2-2) (-2-2) (-2-2) Blood Gas Oxygen Saturation 98 % (90-100) 97 % (90-100) 97 % (90-100) Arterial Blood pH 7.46 7.52 7.52 (7.380-7.420) (7.380-7.420) (7.380-7.420) Arterial Blood Partial 34 mmHg (38-42) 29 mmHg (38-42) 29 mmHg (38-42) Pressure CO2 Arterial Blood Partial 159 mmHg 156 mmHg 154 mmHg Pressure O2 (61-120) (61-120) (61-120) Arterial Blood Oxygen Content 11.5 Vol % 10.1 Vol % 13.4 Vol % (12.0-20.0) (12.0-20.0) (12.0-20.0) Arterial Blood 1.2 % (0-4) 1.4 % (0-4) 1.3 % (0-4) Carboxyhemoglobin Arterial Blood Methemoglobin 0.7 % (0-2) 0.9 % (0-2) 0.9 % (0-2) Blood Gas Hemoglobin 8.1 G/DL 7.2 G/DL 9.5 G/DL (12.0-16.0) (12.0-16.0) (12.0-16.0) Oxygen Delivery Device VENTILATOR VENTILATOR VENTILATOR Blood Gas Ventilator Setting AC/19/450/+5 PRVC/AC PRVC/18/450/0.85/+5 Blood Gas Inspired Oxygen 30 % 30 % 30 % Imaging Last [address] 08/31/16 0800 Signed Impressions: Service Date/Time: Wednesday, August 31, 2016 08:42 - CONCLUSION: 1. Interval reduction in the amount of [id number]-lo-erhy falcine shift. This now measures approximately 4.5 mm. the shift measured approximately 7.4 mm on previous. 2. Continued intraparenchymal and extra-axial hemorrhage as described above. 3. Patient is post right craniotomy with removal of most of the right parietal bone. Shahid Ross MD Exam [employer] Intubated & sedated, pupils are equal bilaterally and reactive, cough and gag are present, GCS 3T Hemodynamic/Cardiac Regular rate and rhythm, stable On Levophed to maintain cerebral perfusion pressure, although we're unable to calculate this without an ICP Pulmonary/Respiratory Clear to auscultation bilaterally, on full ventilator support PCO2 is 29 and he is slightly alkalotic Abdomen/GI Nutrition Soft, nontender, nondistended, tolerating tube feeds at goal Renal/I&O Stable Metabolic/Acid-Base Slightly alkalotic and hypocapnic Hematologic Acute blood loss anemia, hemoglobin 7.3 Assessment and Plan Plan Neurologic-continue sedation and pain medication, maintain cerebral perfusion pressure and treat ICPs as needed, replace ICP monitor Pulmonary-continue full ventilator support, wean as tolerated, aggressive pulmonary toilet, decreased respiratory rate of 15 Cardiac-continue hemodynamic monitoring, levothyroid to push mean arterial pressure in order to obtain proper cerebral perfusion pressure Continue nutritional support and bowel regimen -continue Early for hemodynamic monitoring ID-no active issues FEN- continue to maintain hypernatremia in the 150-160 range Dispo-continue ICU care, patient remains critically ill with severe traumatic brain injury, acute respiratory failure, and dysphagia Total critical care time 35 minutes Jus Real MD Aug 31, 2016 11:44
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
[2016-08-31 13:32] LABS: APTT (PATIENT) 28.6 SEC (24.3-30.1); INTERNATIONAL NORMALIZED RATIO 0.9 RATIO
[2016-08-31 16:12] LABS: BICARBONATE 27.3 MEQ/L (21.0-32.0); CALCIUM-PROTEIN CORRECTED 8.1 MG/DL (8.5-10.1); MAGNESIUM 2.1 MG/DL (1.5-2.5); POTASSIUM 3.4 MEQ/L (3.5-5.1); TOTAL BILIRUBIN ADULT 0.7 MG/DL (0.2-1.0)
[2016-08-31 16:26] LABS: BLOOD GAS BASE EXCESS 1.2 mmol/L (-2-2); BLOOD GAS CARBOXYHEMOGLOBIN 1.2 % (0-4); BLOOD GAS HCO3 24 mmol/L (22-26); BLOOD GAS METHEMOGLOBIN 0.9 % (0-2); BLOOD GAS O2 HGB SATURATION 97 % (90-100); BLOOD GAS OXYGEN CONTENT 12.3 Vol % (12.0-20.0); BLOOD GAS PCO2 33 mmHg (38-42); BLOOD GAS PO2 136 mmHg (61-120); BLOOD GAS TOTAL HGB 8.8 G/DL (12.0-16.0); TEMP CORR TO 98.6
[2016-08-31 16:29] LABS: CRITICAL VALUE NO
[2016-08-31 16:30] LABS: DRAW SITE ART LINE; FIO2 30 %; NUMBER OF ARTERIAL PUNCTURES 0; STAT NO; ULNAR PULSE PRESENT; VENT SETTINGS PRVC15/450/0.85/=5
[2016-08-31] MEDS: levETIRAcetam 1000 MG INJ 100 ML IV SCH (20:47)
[2016-09-01] VITALS (19 sets, daily range): BP systolic 109–128; BP diastolic 52–66; PULSE 58–94; RESP 15–24; TEMP 94.6–101.1; O2SAT 95–100
[2016-09-01 02:08] LABS: MAGNESIUM 2.1 MG/DL (1.5-2.5); POTASSIUM 3.6 MEQ/L (3.5-5.1); TOTAL BILIRUBIN ADULT 0.6 MG/DL (0.2-1.0)
[2016-09-01] MEDS: ARTIFICIAL TEARS OPTH SOLN 15 ML BTL EACH EYE SCH ×3 (02:24→17:52)
[2016-09-01] MEDS: CHLORHEXIDINE GLUCONATE 2 % 1 PACK (2 CLOTHS) TOP SCH (04:00)
[2016-09-01 05:20] LABS: BASOPHIL % 0.4 % (0.0-2.0); EOSINOPHIL # 0.5 TH/MM3 (0-0.4); EOSINOPHIL % 4.6 % (0.0-4.0); HEMATOCRIT 24.3 % (39.0-51.0); LYMPH % 12.3 % (9.0-44.0); LYMPHOCYTE # 1.2 TH/MM3 (1.0-4.8); MEAN CELL VOLUME 84.8 FL (80.0-100.0); MEAN CORPUSCULAR HEMOGLOBIN 30.1 PG (27.0-34.0); MEAN CORPUSCULAR HGB CONC 35.5 % (32.0-36.0); MONO % 11.7 % (0.0-8.0); PLATELET COUNT 119 TH/MM3 (150-450); RED BLOOD COUNT 2.87 MIL/MM3 (4.50-5.90); WHITE BLOOD COUNT 9.8 TH/MM3 (4.0-11.0)
[2016-09-01 05:29] LABS: HEMO FLAGS AUTO DIFF
[2016-09-01] MEDS: 3% SALINE INJ 500 ML IV SCH ×2 (06:00→08:40)
--- NOTE | 2016-09-01 06:01 | RADRPT ---
EXAM DATE/TIME: 09/01/2016 04:42 [place] COMPARISON: CHEST SINGLE AP, August 29, 2016, 2:29. INDICATIONS : Shortness of breath, possible pulmonary disease. MEDICAL HISTORY : None. SURGICAL HISTORY : None. ENCOUNTER: Subsequent ACUITY: 4 - 6 days PAIN SCORE: Non-responsive. LOCATION: Bilateral chest FINDINGS: A single view of the chest demonstrates the endotracheal tube and right IJ central line in good posit ion. Nasogastric barely enters the stomach minimal consolidation right lower lobe. No visible pneumot horax the left lung is clear.. The cardiomediastinal contours are unremarkable. Osseous structures are intact. CONCLUSION: Minimal consolidation right lower lobe. Tubes and catheters in good position except that the NG tube could be advanced Michoacano Hutchison MD on September 01, 2016 at 5:58 Board Certified Radiologist. This report was verified electronically.
[2016-09-01] MEDS: MIDAZOLAM 100 MG/ML INJ 100 ML IV SCH ×2 (06:42→22:11)
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
[2016-09-01] MEDS ORDERED: GLYCERIN ADULT 2 GM SUPP RECTAL PRN (07:45)
[2016-09-01 07:51] LABS: BANDS 44 % (0-6); EOSINOPHILS 5 % (0-4); NEUTROPHIL # MANUAL DIFF 7.4 TH/MM3 (1.8-7.7); POLYS (SEG NEUTROPHILS) 32 % (16-70); WBC DIFF SAMPLE 100
[2016-09-01 07:52] LABS: PLATELET ESTIMATE SMEAR LOW (NORMAL); PLATELET MORPHOLOGY NORMAL (NORMAL); SCAN/DIFF FINAL DIFF MANUAL
[2016-09-01] MEDS: PANTOPRAZOLE SODIUM 40 MG VIAL IVP SCH (08:07)
[2016-09-01] MEDS: fentaNYL DRIP 250 ML IV SCH ×2 (08:08→16:58)
[2016-09-01] MEDS: LACTULOSE SYRUP 20 GM/30 ML CUP PO SCH ×2 (08:08→21:12)
[2016-09-01] MEDS: POLYETHYLENE GLYCOL 17 GM PKG OG-TUBE SCH ×2 (08:08→21:12)
[2016-09-01] MEDS: DOCUSATE SODIUM 50 MG/SENNA 8.6 MG TAB PO SCH ×2 (08:08→21:12)
[2016-09-01] MEDS: SODIUM CHLORIDE 0.9% FLUSH 5 ML FLUSH IVF SCH ×2 (08:08→21:13)
[2016-09-01] MEDS: CHLORHEXIDINE 0.12% (ORAL KIT) 15 ML CUP MT SCH ×2 (08:08→20:19)
[2016-09-01] MEDS: levETIRAcetam 1000 MG INJ 100 ML IV SCH ×2 (08:08→21:12)
[2016-09-01] MEDS: PROPOFOL 1000 MG/100 ML INJ 100 ML IV SCH ×3 (08:40→22:11)
[2016-09-01] MEDS ORDERED: CALCIUM GLUCONATE INJ 1 GM in SODIUM CHLORIDE 0.9% INJ 100 ML IV ONE (09:00)
[2016-09-01] MEDS ORDERED: POTASSIUM PHOSPHATE INJ 30 MMOL in SODIUM CHLOR 0.9% 250 ML INJ 250 ML IV ONE (09:00)
[2016-09-01 09:56] LABS: BLOOD GAS BASE EXCESS -2.4 mmol/L (-2-2); BLOOD GAS HCO3 22 mmol/L (22-26); BLOOD GAS METHEMOGLOBIN 0.8 % (0-2); BLOOD GAS O2 HGB SATURATION 96 % (90-100); BLOOD GAS OXYGEN CONTENT 16.3 Vol % (12.0-20.0); BLOOD GAS PCO2 38 mmHg (38-42); BLOOD GAS PO2 116 mmHg (61-120); BLOOD GAS TOTAL HGB 11.9 G/DL (12.0-16.0); CRITICAL VALUE NO; OXYGEN DEVICE VENTILATOR; TEMP CORR TO 98.6
[2016-09-01 09:57] LABS: DRAW SITE ART LINE; FIO2 30 %; STAT NO; VENT SETTINGS PRVC/AC
[2016-09-01] MEDS ORDERED: FOSPHENYTOIN INJ 1,000 MGPE in SODIUM CHLORIDE 0.9% INJ 50 ML IV ONE (10:00)
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
[2016-09-01] MEDS: RESP: ALBUTEROL 2.5 MG/IPRATROPIUM 0.5 MG NEB (SCH) NEB ×3 (10:20→20:06)
--- NOTE | 2016-09-01 10:44 | MG ---
cc: MARIAH LANG M.D. Lab No: [id number] Date: 09/01/2016 : 1955 Sex: M TECHNIQUE 17-channel EEG. DESCRIPTION The background rhythm again reveals generalized slowing in the delta frequency, roughly 3-4 Hz, amplitude 30-50 microvolts. Again noted is periodic sharp activity over the right hemisphere consistent with periodic lateralizing epileptiform discharges, i.e., PLEDs. No other lateralizing features are identified. Compared with the study of 08/30/2016 the PLEDs appear to be slightly more frequent, now occurring at a frequency of every 3-4 seconds whereas before it was less frequent up to 10-second intervals. INTERPRETATION Abnormal study consistent with severe encephalopathy with periodic lateralizing epileptiform discharges present over the right hemisphere. MD SHANDA Shaikh/DILLON /9:34 AM /10:32 AM
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
--- NOTE | 2016-09-01 11:06 | HHI.CCPN ---
Subjective 24 Hour Review/Hospital Course 08/29/16 Patient is stable following emergent craniotomy with neurosurgery yesterday Repeat head CT shows postsurgical changes with small reaccumulation of blood Will continue to rest patient today and maintain cerebral perfusion pressures using vasopressors as necessary 08/30/16 Patient remains critically ill, although off the vasopressors, he does require deep sedation to maintain his ICPs CT scan is consistent with severe traumatic brain injury and a guarded prognosis at this point 08/31/16 EEG revealed seizure activity, neurology has been consult Discussed prognosis with son at the bedside, also discussed the likely need for tracheostomy and gastrostomy tube placement Patient's ICP monitor is clotted, will require revision or new ICP monitor At this point will continue sedation and IV pain medication He's tolerating his tube feeds at goal and we will continue to maintain his sodium in the 150-160 range 09/01/16 Patient continues to have seizure activity through his Versed and propofol drips. He also becomes hypertensive when sedation is reduced. ICP monitor has been removed, so there is no requirement for Levophed We'll continue to maintain his sodium in the 150-160 range Increase seizure prophylaxis and wean sedation as tolerated Objective Vital Signs Date Time Temp Pulse Resp B/P Pulse Ox O2 Delivery O2 Flow Rate FiO2 09/01/16 10:20 100 30 09/01/16 04:00 97.2 66 15 119/60 114/66 08/31/16 20:00 Mechanical Ventilator Intake and Output 08/31/16 08/31/16 09/01/16 08:00 16:00 00:00 Intake Total 1498 ml 1525 ml 1294 ml Output Total 720 ml 1190 ml 830 ml Balance 778 ml 335 ml 464 ml Result Diagram: 09/01/16 0515 09/01/16 0115 Other Results Laboratory Tests Test 08/31/16 09/01/16 16:20 09:45 Blood Gas Puncture Site ART LINE ART LINE Blood Gas Patient Temperature 98.6 98.6 Blood Gas HCO3 24 mmol/L 22 mmol/L (22-26) (22-26) Blood Gas Base Excess 1.2 mmol/L -2.4 mmol/L (-2-2) (-2-2) Blood Gas Oxygen Saturation 97 % (90-100) 96 % (90-100) Arterial Blood pH 7.49 7.38 (7.380-7.420) (7.380-7.420) Arterial Blood Partial 33 mmHg (38-42) 38 mmHg (38-42) Pressure CO2 Arterial Blood Partial 136 mmHg 116 mmHg Pressure O2 (61-120) (61-120) Arterial Blood Oxygen Content 12.3 Vol % 16.3 Vol % (12.0-20.0) (12.0-20.0) Arterial Blood 1.2 % (0-4) 1.0 % (0-4) Carboxyhemoglobin Arterial Blood Methemoglobin 0.9 % (0-2) 0.8 % (0-2) Blood Gas Hemoglobin 8.8 G/DL 11.9 G/DL (12.0-16.0) (12.0-16.0) Blood Gas Ventilator Setting PRVC15/450/0.85/=5 PRVC/AC Blood Gas Inspired Oxygen 30 % 30 % Oxygen Delivery Device VENTILATOR Imaging Last 24 hours Impressions Chest X-Ray 09/01/16 0600 Signed Impressions: Service Date/Time: August 04:42 - CONCLUSION: Minimal consolidation right lower lobe. 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 Intubated and sedated, EEG shows ongoing seizure activity Hemodynamic/Cardiac Normotensive, regular rate and rhythm Pulmonary/Respiratory Clear to auscultation bilaterally Abdomen/GI Nutrition Soft, nontender, nondistended, tolerating tube feeds at goal Renal/I&O Stable with good urine output Hematologic Stable Urinary Catheter Assessment Urinary Catheter: Yes Assessment to: Continue Early insert reason: Measure Accurate Output Vascular Central Line Catheter Date of Insertion: Aug 28, 2016 Line: Central Venous Catheter Side: Left Location: Subclavian Assessment and Plan Plan Neurologic-continue sedation and pain medication, increase seizure prophylaxis Pulmonary-continue full ventilator support, wean as tolerated, aggressive pulmonary toilet Cardiac-continue hemodynamic monitoring, stop levophed Continue nutritional support and bowel regimen -continue Early for hemodynamic monitoring FEN- continue to maintain hypernatremia in the 150-160 range Dispo-continue ICU care, patient remains critically ill with severe traumatic brain injury, seizure activity, acute respiratory failure, and dysphagia Total critical care time 35 minutes Jus Real MD Sep 01, 2016 11:06
[2016-09-01] MEDS ORDERED: TERBUTALINE INJ 1 MG/ML AMP SQ PRN (11:15)
[2016-09-01] MEDS ORDERED: NOREPINEPHRINE INJ 4 MG in SODIUM CHLOR 0.9% 250 ML INJ 246 ML IV SCH (11:30)
[2016-09-01] MEDS: PHENYTOIN INJ 100 MG/2 ML VIAL IV SCH ×2 (13:47→21:11)
[2016-09-01] MEDS ORDERED: NOREPINEPHRINE 16 MG/D5W 250 ML IV SCH ×2 (16:15)
[2016-09-01] MEDS: ACETAMINOPHEN 325 MG TAB PO PRN (16:24)
--- NOTE | 2016-09-01 17:50 | RADRPT ---
EXAM DATE/TIME: 09/01/2016 17:23 [facility] COMPARISON: CT BRAIN W/O CONTRAST, August 31, 2016, 8:42. INDICATIONS : Increased edema at craniotomy site. RADIATION DOSE: 36.12 CTDIvol (mGy) MEDICAL HISTORY : Cardiovascular disease. SURGICAL HISTORY : Craniotomy. ENCOUNTER: Initial ACUITY: 1 day PAIN SCALE: Non-responsive LOCATION: cranial TECHNIQUE: Multiple contiguous axial images were obtained of the head. Using automated exposure control and adj ustment of the mA and/or kV according to patient size, radiation dose was kept as low as reasonably a chievable to obtain optimal diagnostic quality images. FINDINGS: Since the previous examination there has been interval removal of the intracranial pressure monitorin g device on the left. A small area of intraparenchymal hemorrhage is seen involving the underlying le ft frontal lobe. This is stable. There is a small subdural hematoma adjacent to the tentorium on the right measuring less than 1 cm in size. This is stable. Small amount of subdural hematoma tracks [place] g the right tentorium and right posterior aspects of the falx. This is stable. Small volume subarachn oid hemorrhage is seen at the vertex particularly on the left. Stable. Right temporal craniotomy with surgical drains. There is edema involving the overlying soft tissues which is stable. Midline shift of 3 mm is slightly smaller from the prior exam. No ventriculomegaly. CONCLUSION: 1. Stable exam with areas of subdural, intraparenchymal, and subarachnoid hemorrhage. No new sites of hemorrhage. 2. Slight reduction in the midline shift. 3. Stable craniotomy and surgical drains. Josh Marina Jr., MD on September 01, 2016 at 17:41 Board Certified Radiologist. This report was verified electronically.
[2016-09-01] MEDS: PIPERACIL-TAZO 4.5 GM PREMIX 100 ML IV SCH ×2 (17:56→22:11)
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
[2016-09-02] VITALS (17 sets, daily range): BP systolic 109–120; BP diastolic 45–61; PULSE 72–114; RESP 18–29; TEMP 97.3–102.7; O2SAT 90–100
[2016-09-02 00:41] LABS: BLOOD GAS BASE EXCESS -1.7 mmol/L (-2-2); BLOOD GAS CARBOXYHEMOGLOBIN 1.4 % (0-4); BLOOD GAS HCO3 21 mmol/L (22-26); BLOOD GAS METHEMOGLOBIN 0.8 % (0-2); BLOOD GAS O2 HGB SATURATION 96 % (90-100); BLOOD GAS OXYGEN CONTENT 12.1 Vol % (12.0-20.0); BLOOD GAS PCO2 25 mmHg (38-42); BLOOD GAS PO2 99 mmHg (61-120); BLOOD GAS TOTAL HGB 8.9 G/DL (12.0-16.0); TEMP CORR TO 98.6
[2016-09-02 00:43] LABS: CRITICAL VALUE YES; OXYGEN DEVICE VENTILATOR
[2016-09-02 00:44] LABS: DRAW SITE ART LINE; FIO2 30 %; STAT NO; VENT SETTINGS PRVC/AC
[2016-09-02] MEDS: 3% SALINE INJ 500 ML IV SCH ×2 (02:24→19:31)
[2016-09-02] MEDS: PROPOFOL 1000 MG/100 ML INJ 100 ML IV SCH ×3 (02:25→21:47)
[2016-09-02] MEDS: ARTIFICIAL TEARS OPTH SOLN 15 ML BTL EACH EYE SCH ×3 (02:26→17:01)
[2016-09-02 02:46] LABS: BLOOD GAS CARBOXYHEMOGLOBIN 1.6 % (0-4); BLOOD GAS HCO3 21 mmol/L (22-26); BLOOD GAS METHEMOGLOBIN 1.1 % (0-2); BLOOD GAS O2 HGB SATURATION 95 % (90-100); BLOOD GAS OXYGEN CONTENT 11.7 Vol % (12.0-20.0); BLOOD GAS PCO2 27 mmHg (38-42); BLOOD GAS PO2 95 mmHg (61-120); BLOOD GAS TOTAL HGB 8.6 G/DL (12.0-16.0); CRITICAL VALUE NO; OXYGEN DEVICE VENTILATOR; TEMP CORR TO 98.6
[2016-09-02 02:47] LABS: FIO2 30 %; VENT SETTINGS PRVC/AC
[2016-09-02 02:48] LABS: DRAW SITE ART LINE; STAT NO
[2016-09-02] MEDS: RESP: ALBUTEROL 2.5 MG/IPRATROPIUM 0.5 MG NEB (SCH) NEB ×4 (04:18→20:24)
[2016-09-02] MEDS: CHLORHEXIDINE GLUCONATE 2 % 1 PACK (2 CLOTHS) TOP SCH (05:09)
[2016-09-02] MEDS: fentaNYL DRIP 250 ML IV SCH ×2 (05:10→18:42)
[2016-09-02] MEDS: PHENYTOIN INJ 100 MG/2 ML VIAL IV SCH ×3 (05:11→21:32)
[2016-09-02] MEDS: PIPERACIL-TAZO 4.5 GM PREMIX 100 ML IV SCH ×3 (05:11→17:01)
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
[2016-09-02 05:53] LABS: BASOPHIL % 0.1 % (0.0-2.0); EOSINOPHIL # 0.3 TH/MM3 (0-0.4); EOSINOPHIL % 3.7 % (0.0-4.0); HEMATOCRIT 23.2 % (39.0-51.0); LYMPH % 7.1 % (9.0-44.0); LYMPHOCYTE # 0.7 TH/MM3 (1.0-4.8); MEAN CELL VOLUME 85.9 FL (80.0-100.0); MEAN CORPUSCULAR HEMOGLOBIN 29.3 PG (27.0-34.0); MEAN CORPUSCULAR HGB CONC 34.1 % (32.0-36.0); MONO % 13.1 % (0.0-8.0); PLATELET COUNT 144 TH/MM3 (150-450); RED CELL DISTRIBUTION WIDTH 13.8 % (11.6-17.2); WHITE BLOOD COUNT 9.2 TH/MM3 (4.0-11.0)
[2016-09-02 05:57] LABS: HEMO FLAGS AUTO DIFF
[2016-09-02] MEDS ORDERED: FUROSEMIDE 20 MG/2 ML VIAL IV PUSH ONE ×2 (06:00→13:00)
[2016-09-02] MEDS ORDERED: POTASSIUM CHLOR 20 MEQ PREMIX 100 ML IV ONE (06:00)
[2016-09-02 06:10] LABS: BICARBONATE 23.8 MEQ/L (21.0-32.0); MAGNESIUM 2.2 MG/DL (1.5-2.5); POTASSIUM 3.7 MEQ/L (3.5-5.1)
[2016-09-02 06:23] LABS: CALCIUM-PROTEIN CORRECTED 7.9 MG/DL (8.5-10.1)
[2016-09-02 07:07] LABS: BANDS 28 % (0-6); BASOPHILS 1 % (0-2); CORRECTED NUCLEATED RBC 2 /100 WBC (0-0); DOHLE BODIES PRESENT (NONE SEEN); EOSINOPHILS 5 % (0-4); NEUTROPHIL # MANUAL DIFF 6.8 TH/MM3 (1.8-7.7); POLYS (SEG NEUTROPHILS) 46 % (16-70); WBC DIFF SAMPLE 100
[2016-09-02 07:08] LABS: SCAN/DIFF FINAL DIFF MANUAL
[2016-09-02] MEDS ORDERED: CALCIUM GLUCONATE INJ 1 GM in SODIUM CHLORIDE 0.9% INJ 100 ML IV ONE (08:00)
[2016-09-02] MEDS ORDERED: BISACODYL 10 MG SUPP RECTAL ONE (09:45)
--- NOTE | 2016-09-02 09:47 | RADRPT ---
EXAM DATE/TIME: 09/02/2016 08:23 [facility] COMPARISON: CHEST SINGLE AP, September 01, 2016, 4:42. INDICATIONS : Patient is short of breath. Rule out pneumonia. MEDICAL HISTORY : None. SURGICAL HISTORY : CABG. ENCOUNTER: Subsequent ACUITY: 4 - 6 days PAIN SCORE: Non-responsive. LOCATION: Bilateral chest FINDINGS: ET tube, nasogastric tube, central venous catheter are in good position. Bibasilar consolidative dean nges are noted worse on the right than the left. There is no pneumothorax. Very minimal mediastinal air is present seen best in the right base. CONCLUSION: 1. Increasing bibasilar consolidative changes much worse on the right than the left. 2. Very minimal mediastinal air in the right base. There is no definitive pneumothorax visualized o n the supine. Marlon Ross MD FACR on September 02, 2016 at 8:59 Board Certified Radiologist. This report was verified electronically.
[2016-09-02] MEDS: PANTOPRAZOLE SODIUM 40 MG VIAL IVP SCH (10:23)
[2016-09-02] MEDS: POLYETHYLENE GLYCOL 17 GM PKG OG-TUBE SCH ×2 (10:23→21:30)
[2016-09-02] MEDS: LACTULOSE SYRUP 20 GM/30 ML CUP PO SCH ×4 (10:23→21:31)
[2016-09-02] MEDS: DOCUSATE SODIUM 50 MG/SENNA 8.6 MG TAB PO SCH ×2 (10:23→21:31)
[2016-09-02] MEDS: levETIRAcetam 1000 MG INJ 100 ML IV SCH (10:23)
[2016-09-02] MEDS: SODIUM CHLORIDE 0.9% FLUSH 5 ML FLUSH IVF SCH ×2 (10:24→21:31)
[2016-09-02] MEDS: CHLORHEXIDINE 0.12% (ORAL KIT) 15 ML CUP MT SCH ×2 (10:24→19:31)
[2016-09-02] MEDS: METOCLOPRAMIDE HCL 10 MG/2 ML VIAL IV PUSH SCH ×3 (10:24→21:32)
[2016-09-02] MEDS: MIDAZOLAM 100 MG/ML INJ 100 ML IV SCH (10:25)
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
[2016-09-02] MEDS: RESP: SODIUM CHLORIDE 3% 4 ML NEB NEB SCH ×3 (11:14→20:24)
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
[2016-09-02] MEDS: ACETAMINOPHEN 325 MG TAB PO PRN ×2 (12:03→17:00)
[2016-09-02 12:19] LABS: BLOOD GAS BASE EXCESS -2.6 mmol/L (-2-2); BLOOD GAS CARBOXYHEMOGLOBIN 1.3 % (0-4); BLOOD GAS HCO3 22 mmol/L (22-26); BLOOD GAS O2 HGB SATURATION 95 % (90-100); BLOOD GAS OXYGEN CONTENT 10.7 Vol % (12.0-20.0); BLOOD GAS PCO2 38 mmHg (38-42); BLOOD GAS PO2 95 mmHg (61-120); BLOOD GAS TOTAL HGB 7.9 G/DL (12.0-16.0); CRITICAL VALUE NO; OXYGEN DEVICE VENTILATOR; TEMP CORR TO 98.6; VENT SETTINGS PRVC/AC
[2016-09-02 12:20] LABS: DRAW SITE ALINE; FIO2 50 %; STAT NO
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
[2016-09-02 13:17] LABS: TOTAL BILIRUBIN ADULT 0.7 MG/DL (0.2-1.0)
[2016-09-02] MEDS: guaiFENesin SOLUTION 200 MG/10 ML CUP DOBHOFF SCH ×2 (14:38→21:31)
[2016-09-02] MEDS ORDERED: LORazepam 2 MG/ML VIAL IV PUSH ONE ×2 (16:00)
[2016-09-02] MEDS ORDERED: levETIRAcetam INJ 500 MG in SODIUM CHLORIDE 0.9% INJ 100 ML IV ONE (16:00)
--- NOTE | 2016-09-02 17:54 | MG ---
cc: MARIAH LANG M.D. Lab No: [id number] Date: 09/02/2016 Age: Sex: M Race: TECHNIQUE 17 channel EEG. DESCRIPTION The back rhythm is generally slow, in the delta frequency 1-2 Hz amplitude is roughly 5-10 microvolts. Once again Pled is identified over the right hemisphere similar to what was seen yesterday with occasional burst of sharp activity occurring every 3-5 seconds. No other abnormalities identified. INTERPRETATION Abnormal study suggestive of severe encephalopathy with period of Lateralizing epileptiform discharges over the right hemisphere. MD SHANDA Shaikh/hayley /5:41 PM /5:45 PM
[2016-09-02 20:00] LABS: POTASSIUM 3.5 MEQ/L (3.5-5.1)
[2016-09-02 20:01] LABS: MAGNESIUM 2.2 MG/DL (1.5-2.5)
[2016-09-02] MEDS ORDERED: levETIRAcetam INJ 500 MG in SODIUM CHLORIDE 0.9% INJ 100 ML IV SCH (21:00)
[2016-09-02] MEDS: ICU - POTASSIUM CHLORIDE/AQUEOUS SOLN 40 MEQ/100 ML IVPB IV PRN (21:30)
[2016-09-02] MEDS: levETIRAcetam INJ 1,500 MG in SODIUM CHLORIDE 0.9% INJ 100 ML IV SCH (21:31)
[2016-09-03] VITALS (20 sets, daily range): BP systolic 117–140; BP diastolic 51–56; PULSE 79–94; RESP 24; TEMP 99.1–100.4; O2SAT 93–100
[2016-09-03] MEDS: PIPERACIL-TAZO 4.5 GM PREMIX 100 ML IV SCH ×5 (00:04→22:27)
[2016-09-03] MEDS: PROPOFOL 1000 MG/100 ML INJ 100 ML IV SCH ×3 (02:19→22:28)
[2016-09-03] MEDS: ARTIFICIAL TEARS OPTH SOLN 15 ML BTL EACH EYE SCH ×3 (02:19→17:42)
[2016-09-03] MEDS: RESP: SODIUM CHLORIDE 3% 4 ML NEB NEB SCH ×4 (03:52→21:34)
[2016-09-03] MEDS: RESP: ALBUTEROL 2.5 MG/IPRATROPIUM 0.5 MG NEB (SCH) NEB ×4 (03:52→21:34)
[2016-09-03] MEDS: CHLORHEXIDINE GLUCONATE 2 % 1 PACK (2 CLOTHS) TOP SCH (04:33)
[2016-09-03 05:27] LABS: BLOOD GAS BASE EXCESS -1.5 mmol/L (-2-2); BLOOD GAS CARBOXYHEMOGLOBIN 1.1 % (0-4); BLOOD GAS HCO3 22 mmol/L (22-26); BLOOD GAS METHEMOGLOBIN 1.1 % (0-2); BLOOD GAS O2 HGB SATURATION 96 % (90-100); BLOOD GAS OXYGEN CONTENT 10.6 Vol % (12.0-20.0); BLOOD GAS PCO2 35 mmHg (38-42); BLOOD GAS PO2 119 mmHg (61-120); BLOOD GAS TOTAL HGB 7.7 G/DL (12.0-16.0); CRITICAL VALUE NO; OXYGEN DEVICE VENTILATOR; TEMP CORR TO 98.6
[2016-09-03 05:27] LABS: AUTOMATED NEUTROPHIL # 10.7 TH/MM3 (1.8-7.7); BASOPHIL % 0.1 % (0.0-2.0); EOSINOPHIL # 0.2 TH/MM3 (0-0.4); EOSINOPHIL % 1.5 % (0.0-4.0); HEMATOCRIT 21.6 % (39.0-51.0); LYMPH % 7.3 % (9.0-44.0); MEAN CELL VOLUME 86.1 FL (80.0-100.0); MEAN CORPUSCULAR HEMOGLOBIN 29.3 PG (27.0-34.0); MEAN CORPUSCULAR HGB CONC 34.1 % (32.0-36.0); MONO % 13.4 % (0.0-8.0); NEUT % 77.7 % (16.0-70.0); PLATELET COUNT 168 TH/MM3 (150-450); RED BLOOD COUNT 2.52 MIL/MM3 (4.50-5.90); RED CELL DISTRIBUTION WIDTH 14.3 % (11.6-17.2); WHITE BLOOD COUNT 13.8 TH/MM3 (4.0-11.0)
[2016-09-03 05:28] LABS: DRAW SITE ART LINE; FIO2 40 %; STAT NO; VENT SETTINGS PRVC/AC
[2016-09-03 05:34] LABS: HEMO FLAGS AUTO DIFF
--- NOTE | 2016-09-03 05:42 | RADRPT ---
EXAM DATE/TIME: 09/03/2016 04:09 [facility] COMPARISON: CHEST SINGLE AP, September 02, 2016, 8:23. INDICATIONS : Respiratory failure. Patient remains intubated and being followed for pulmonary infiltrates. MEDICAL HISTORY : None. SURGICAL HISTORY : CABG. ENCOUNTER: Subsequent ACUITY: 1 week PAIN SCORE: Non-responsive. LOCATION: Bilateral chest FINDINGS: A single AP portable semierect view of the chest was obtained and again demonstrates the endotracheal tube in place with the tip now approximately 3 cm above the caity. The nasogastric tube is again se en coursing through the esophagus with the tip injected over the distal stomach. The right internal j ugular central venous line remains in place. Hazy opacity is present in both perihilar regions and giacomo ng bases left greater than right. This is not appear significantly changed. Left costophrenic angle r emains blunted. The heart size is mildly prominent. There are multiple overlying electrocardiogram le ads and oxygen tubing. CONCLUSION: 1. No significant change in the pulmonary opacities left greater than right. 2. The patient remains intubated. Kendrick Morelos MD on September 03, 2016 at 5:39 Board Certified Radiologist. This report was verified electronically.
[2016-09-03 05:58] LABS: ANION GAP 8 MEQ/L (5-15); AST (GOT) 33 U/L (15-37); BICARBONATE 24.9 MEQ/L (21.0-32.0); BLOOD UREA NITROGEN 11 MG/DL (7-18); CHLORIDE 120 MEQ/L (98-107); GLOMERULAR FILTRATION RATE 106 ML/MIN (>89); MAGNESIUM 2.6 MG/DL (1.5-2.5); POTASSIUM 3.5 MEQ/L (3.5-5.1); SODIUM (NA) 153 MEQ/L (136-145)
[2016-09-03 06:01] LABS: ALKALINE PHOSPHATASE 74 U/L (45-117); ALT (GPT) 24 U/L (12-78); TOTAL BILIRUBIN ADULT 0.6 MG/DL (0.2-1.0)
[2016-09-03] MEDS: guaiFENesin SOLUTION 200 MG/10 ML CUP DOBHOFF SCH ×3 (06:27→22:26)
[2016-09-03] MEDS: PHENYTOIN INJ 100 MG/2 ML VIAL IV SCH ×3 (06:27→17:45)
[2016-09-03] MEDS: METOCLOPRAMIDE HCL 10 MG/2 ML VIAL IV PUSH SCH ×3 (06:28→20:21)
[2016-09-03] MEDS: ICU - POTASSIUM CHLORIDE/AQUEOUS SOLN 40 MEQ/100 ML IVPB IV PRN (06:29)
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
[2016-09-03] MEDS: MIDAZOLAM 100 MG/ML INJ 100 ML IV SCH ×2 (06:51→22:28)
[2016-09-03] MEDS ORDERED: POTASSIUM CHLORIDE 20 MEQ PWD PACKET OG-TUBE ONE (07:00)
[2016-09-03] MEDS: DOCUSATE SODIUM 50 MG/SENNA 8.6 MG TAB PO SCH ×2 (09:00→20:21)
[2016-09-03] MEDS: SODIUM CHLORIDE 0.9% FLUSH 5 ML FLUSH IVF SCH ×2 (09:00→20:21)
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
[2016-09-03 09:40] LABS: BANDS 48 % (0-6); CORRECTED NUCLEATED RBC 1 /100 WBC (0-0); EOSINOPHILS 1 % (0-4); NEUTROPHIL # MANUAL DIFF 12.3 TH/MM3 (1.8-7.7); PLATELET ESTIMATE SMEAR NORMAL (NORMAL); PLATELET MORPHOLOGY NORMAL (NORMAL); POLYS (SEG NEUTROPHILS) 41 % (16-70); SCAN/DIFF FINAL DIFF MANUAL; WBC DIFF SAMPLE 100
[2016-09-03] MEDS: SODIUM CHLOR 0.9% IV SCH (09:48)
[2016-09-03] MEDS: NOREPINEPHRINE IV SCH (09:48)
[2016-09-03] MEDS: CHLORHEXIDINE 0.12% (ORAL KIT) 15 ML CUP MT SCH ×2 (09:49→20:46)
[2016-09-03] MEDS: levETIRAcetam INJ 1,500 MG in SODIUM CHLORIDE 0.9% INJ 100 ML IV SCH ×2 (09:50→20:21)
[2016-09-03] MEDS: PANTOPRAZOLE SODIUM 40 MG VIAL IVP SCH (09:50)
[2016-09-03] MEDS: fentaNYL DRIP 250 ML IV SCH (13:04)
[2016-09-03] MEDS ORDERED: FOSPHENYTOIN SODIUM 500 MG PE/10 ML VIAL IV ONE (16:00)
--- NOTE | 2016-09-03 16:01 | HHI.PR ---
Review/Management Diagnosis head trauma with sdh and intraparencymal hemorrhage right hemisphere Plan increase phenytoin Diagnosis/Plan: Subjective Subjective Comments No acute events reported No focal sz. Active Medications Current Medications Medications (Trade) Dose Ordered Sig/Leesa Route Start Time Stop Time Status Last Admin (Vasotec Inj) 1.25 mg Q8H PRN IV 08/28/16 11:00 Miscellaneous Information 1 Q361D XX 08/28/16 11:00 08/28/16 11:00 (NS Flush) 2 ml UNSCH PRN IVF 08/28/16 13:15 (NS Flush) 2 ml BID IVF 08/28/16 21:00 09/02/16 21:31 (Protonix Inj) 40 mg DAILY IVP 08/29/16 09:00 09/03/16 09:50 Calcium Gluconate 1 gm 1 gm UNSCH PRN IV 08/28/16 13:15 Potassium Chloride 100 ml @ 50 mls/hr UNSCH PRN IV 08/28/16 13:15 (Magnesium Sulfate Inj/NS Inj) 108 ml @ 108 mls/hr UNSCH PRN IV 08/28/16 13:15 Chlorhexidine Gluconate 15 ml 15 ml BID@08,20 MT 08/28/16 20:00 09/03/16 09:49 (Diprivan 1000 Mg/100ml Inj) 100 ml @ 0 mls/hr TITRATE IV 08/28/16 14:30 09/03/16 13:04 Fentanyl Citrate 150 mcg 150 mcg Q1H PRN SLOW IVP 08/28/16 14:30 (fentaNYL DRIP) 250 ml @ 0 mls/hr TITRATE IV 08/28/16 14:30 09/03/16 13:04 (Tylenol) 650 mg Q6H PRN PO 08/28/16 14:30 09/02/16 17:00 (Zofran Inj) 4 mg Q6H PRN IV 08/28/16 14:30 09/01/16 14:43 Miscellaneous Information 1 Q361D XX 08/28/16 14:30 08/28/16 14:30 (Chlorhexidine 2% Cloth) Taper DAILY@04 TOP 08/29/16 04:00 08/25/17 03:59 09/03/16 04:33 (Chlorhexidine 2% Cloth) 3 pack UNSCH PRN TOP 08/28/16 14:30 (Adali-Colace) 1 tab BID PO 08/28/16 21:00 09/02/16 21:31 (Milk Of Violetta Lilula) 30 ml Q12H PRN PO 08/28/16 14:30 Sennosides 17.2 mg 17.2 mg Q12H PRN PO 08/28/16 14:30 (Versed Inj) 100 ml @ 0 mls/hr TITRATE IV 08/29/16 07:00 09/03/16 06:51 Miscellaneous Information D/C ICU ELECTROLYTE ORDERS... UNSCH PRN .XX 08/30/16 08:45 Miscellaneous Information ICU - CALL ORDERING PHYSIC... UNSCH PRN .XX 08/30/16 08:45 (KCl 40 Meq Premix Inj) 100 ml @ 25 mls/hr UNSCH PRN IV 08/30/16 08:45 09/03/16 06:29 Potassium Bicarb/ Potassium Chloride 50 meq 50 meq UNSCH PRN PO 08/30/16 08:45 Potassium Chloride 100 ml @ 50 mls/hr UNSCH PRN IV 08/30/16 08:45 Magnesium Sulfate 4 gm/Sodium Chloride 108 ml @ 54 mls/hr UNSCH PRN IV 08/30/16 08:45 (Magnesium Sulfate Inj/NS Inj) 104 ml @ 52 mls/hr UNSCH PRN IV 08/30/16 08:45 Magnesium Oxide 800 mg 800 mg UNSCH PRN PO 08/30/16 08:45 (Sodium Phosphate Inj/NS 250 ml Inj) 260 ml @ 43.333 mls/ hr UNSCH PRN IV 08/30/16 08:45 Potassium Phosphate 2000 mg 2,000 mg UNSCH PRN PO 08/30/16 08:45 08/30/16 08:58 (Potassium Phosphate Inj/NS 250 ml Inj) 260 ml @ 43.333 mls/ hr UNSCH PRN IV 08/30/16 08:45 08/31/16 05:02 (Tears Naturale Opth Soln) 1 drop Q8H EACH EYE 08/30/16 10:00 09/03/16 10:19 Glycerin 2 gm 2 gm BID PRN RECTAL 09/01/16 07:45 (Sodium Chloride 3% Inj) 500 ml @ 20 mls/hr Q24H IV 09/01/16 09:00 09/02/16 19:31 (Dilantin Inj) 100 mg Q8HR IV 09/01/16 14:00 09/03/16 14:57 Terbutaline Sulfate 1 mg 1 mg UNSCH PRN SQ 09/01/16 11:15 Norepinephrine Bitartrate 16 mg/ Sodium Chloride 266 ml @ 0 mls/hr TITRATE IV 09/01/16 16:16 09/03/16 09:48 (Zosyn 4.5 Gm Premix) 100 ml @ 200 mls/hr Q6H IV 09/01/16 17:30 09/03/16 11:10 (Robitussin Liq) 400 mg Q8HR DOBHOFF 09/02/16 14:00 09/07/16 13:59 09/03/16 14:56 Metoclopramide HCl 5 mg 5 mg Q8HR IV PUSH 09/02/16 09:45 09/03/16 14:57 (Keppra Inj/NS Inj) 115 ml @ 230 mls/hr Q12H IV 09/02/16 21:00 09/03/16 09:50 Allergies Allergies Coded Allergies UNOBTAINABLE (Unverified08/28/16) Exam I&O / VS 09/02/16 09/02/16 09/03/16 15:00 23:00 07:00 Intake Total 1328 ml 1182 ml 1218 ml Output Total 1545.0 ml 1040 ml 730 ml Balance -217.0 ml 142 ml 488 ml Intake IV Total 1163 ml 764 ml 932 ml Tube Feeding 165 ml 158 ml 226 ml Tube Irrigant 260 ml 60 ml Output Urine Total 1250 ml 1000 ml 650 ml Tube Feeding Residual Discard 200.0 ml 0 ml 0 ml Drainage Total 95 ml 40 ml 80 ml # Bowel Movements 0 8 Vital Signs Date Time Temp Pulse Resp B/P Pulse Ox O2 Delivery O2 Flow Rate FiO2 09/03/16 12:27 97 40 09/03/16 08:14 100 40 09/03/16 06:00 84 09/03/16 04:11 94 40 09/03/16 04:00 84 09/03/16 04:00 99.1 84 24 117/54 100 09/03/16 04:00 40 09/03/16 02:00 79 09/03/16 01:10 98 40 09/03/16 00:00 88 09/03/16 00:00 100.2 88 24 130/56 98 09/03/16 00:00 40 09/02/16 22:00 93 09/02/16 20:24 97 40 09/02/16 20:00 86 09/02/16 20:00 40 09/02/16 20:00 99.3 86 29 109/58 99 09/02/16 19:00 99 Mechanical Ventilator 40 09/02/16 18:00 80 09/02/16 17:49 96 40 Exam Comments nonresponsive pupils 2mm symmetric no spontaneous limb movement, no focal sz. Objective Micro and Labs Laboratory Tests Test 09/02/16 09/03/16 09/03/16 09/03/16 17:15 02:00 05:14 05:20 Potassium Level 3.5 3.5 Serum Osmolality 316 317 315 Magnesium Level 2.2 2.6 Sodium Level 153 153 Blood Gas Puncture Site ART LINE Blood Gas Patient Temperature 98.6 Blood Gas HCO3 22 Blood Gas Base Excess -1.5 Blood Gas Oxygen Saturation 96 Arterial Blood pH 7.43 Arterial Blood Partial 35 Pressure CO2 Arterial Blood Partial 119 Pressure O2 Arterial Blood Oxygen Content 10.6 Arterial Blood 1.1 Carboxyhemoglobin Arterial Blood Methemoglobin 1.1 Blood Gas Hemoglobin 7.7 Oxygen Delivery Device VENTILATOR Blood Gas Ventilator Setting PRVC/AC Blood Gas Inspired Oxygen 40 White Blood Count 13.8 Red Blood Count 2.52 Hemoglobin 7.4 Hematocrit 21.6 Mean Corpuscular Volume 86.1 Mean Corpuscular Hemoglobin 29.3 Mean Corpuscular Hemoglobin 34.1 Concent Red Cell Distribution Width 14.3 Platelet Count 168 Mean Platelet Volume 9.3 Neutrophils (%) (Auto) 77.7 Lymphocytes (%) (Auto) 7.3 Monocytes (%) (Auto) 13.4 Eosinophils (%) (Auto) 1.5 Basophils (%) (Auto) 0.1 Neutrophils # (Auto) 10.7 Lymphocytes # (Auto) 1.0 Monocytes # (Auto) 1.9 Eosinophils # (Auto) 0.2 Basophils # (Auto) 0.0 CBC Comment AUTO DIFF Differential Total Cells 100 Counted Neutrophils % (Manual) 41 Band Neutrophils % 48 Lymphocytes % 6 Monocytes % 4 Eosinophils % 1 Neutrophils # (Manual) 12.3 Nucleated Red Blood Cells 1 Differential Comment FINAL DIFF MANUAL Platelet Estimate NORMAL Platelet Morphology Comment NORMAL Red Cell Morphology Comment NORMAL Chloride Level 120 Carbon Dioxide Level 24.9 Anion Gap 8 Blood Urea Nitrogen 11 Creatinine 0.75 Estimat Glomerular Filtration 106 Rate Random Glucose 143 Calcium Level 7.5 Phosphorus Level 2.6 Total Bilirubin 0.6 Aspartate Amino Transf 33 (AST/SGOT) Alanine Aminotransferase 24 (ALT/SGPT) Alkaline Phosphatase 74 Total Protein 5.3 Albumin 1.4 Test 09/03/16 09/03/16 10:30 12:25 Blood Type O POSITIVE Antibody Screen NEGATIVE Crossmatch Leukocyte-Reduced Red Blood Cells Blood Bank Comment Sodium Level 154 Serum Osmolality 320 Date/Time Procedure Status Source Growth 09/01/16 10:13 Aerobic Blood Culture - Preliminary Resulted Blood Peripheral NO GROWTH IN 2 DAYS 09/01/16 10:13 Anaerobic Blood Culture - Preliminary Resulted Blood Peripheral NO GROWTH IN 2 DAYS 08/31/16 10:56 Urine Culture - Final Complete Urine Catheterized Urine NO GROWTH IN 48 HOURS. 08/31/16 10:56 Gram Stain - Final Complete Sputum Expectorated Sputum 08/31/16 10:56 Sputum Culture - Final Complete Serratia Marcescens Staph Sp Coagulase Positive Celio Chris PhD Sep 03, 2016 16:01
--- NOTE | 2016-09-03 17:25 | HHI.CCPN ---
Subjective 24 Hour Review/Hospital Course 08/29/16 Patient is stable following emergent craniotomy with neurosurgery yesterday Repeat head CT shows postsurgical changes with small reaccumulation of blood Will continue to rest patient today and maintain cerebral perfusion pressures using vasopressors as necessary 08/30/16 Patient remains critically ill, although off the vasopressors, he does require deep sedation to maintain his ICPs CT scan is consistent with severe traumatic brain injury and a guarded prognosis at this point 08/31/16 EEG revealed seizure activity, neurology has been consult Discussed prognosis with son at the bedside, also discussed the likely need for tracheostomy and gastrostomy tube placement Patient's ICP monitor is clotted, will require revision or new ICP monitor At this point will continue sedation and IV pain medication He's tolerating his tube feeds at goal and we will continue to maintain his sodium in the 150-160 range 09/01/16 Patient continues to have seizure activity through his Versed and propofol drips. He also becomes hypertensive when sedation is reduced. ICP monitor has been removed, so there is no requirement for Levophed We'll continue to maintain his sodium in the 150-160 range Increase seizure prophylaxis and wean sedation as tolerated 09/03/16 continues to seize off sedation,neurology on board fabián jones low dose levophed to keep MAP in adequate levels co2 35 tolerating tube feeds Objective Vital Signs Date Time Temp Pulse Resp B/P Pulse Ox O2 Delivery O2 Flow Rate FiO2 09/03/16 16:01 100 40 09/03/16 06:00 84 09/03/16 04:00 99.1 24 117/54 09/02/16 19:00 Mechanical Ventilator Intake and Output 09/02/16 09/02/16 09/03/16 08:00 16:00 00:00 Intake Total 1304 ml 1328 ml 1182 ml Output Total 965.0 ml 1345 ml 1040.0 ml Balance 339.0 ml -17 ml 142.0 ml Result Diagram: 09/03/16 0520 09/03/16 1225 Other Results Laboratory Tests Test 09/03/16 05:14 Blood Gas Puncture Site ART LINE Blood Gas Patient Temperature 98.6 Blood Gas HCO3 22 mmol/L (22-26) Blood Gas Base Excess -1.5 mmol/L (-2-2) Blood Gas Oxygen Saturation 96 % (90-100) Arterial Blood pH 7.43 (7.380-7.420) Arterial Blood Partial 35 mmHg (38-42) Pressure CO2 Arterial Blood Partial 119 mmHg Pressure O2 (61-120) Arterial Blood Oxygen Content 10.6 Vol % (12.0-20.0) Arterial Blood 1.1 % (0-4) Carboxyhemoglobin Arterial Blood Methemoglobin 1.1 % (0-2) Blood Gas Hemoglobin 7.7 G/DL (12.0-16.0) Oxygen Delivery Device VENTILATOR Blood Gas Ventilator Setting PRVC/AC Blood Gas Inspired Oxygen 40 % Imaging Last 24 hours Impressions Chest X-Ray 09/03/16 0600 Signed Impressions: Service Date/Time: Monday, September 03, 2016 04:09 - CONCLUSION: 1. No significant change in the pulmonary opacities left greater than right. 2. The patient remains intubated. Kendrick Morelos MD Exam [employer] gcs 3 T sedated-ICP monitor off Hemodynamic/Cardiac low dose levophed Pulmonary/Respiratory mechanical ventilation Abdomen/GI Nutrition tolerating tube feeds abdomen-soft Renal/I&O uo adequat Hematologic 1U PRBC ordered by financial report service sales agent Urinary Catheter Assessment Urinary Catheter: Yes Early insert reason: ICU Pt Getting Diuretics Vascular Central Line Catheter Vascular Central Line Catheter: Yes Assessment to: Continue Date of Insertion: Aug 28, 2016 Line: Central Venous Catheter Side: Left Location: Subclavian Assessment and Plan Plan Neurologic-continue sedation and pain medication, seizure meds as per neurology Pulmonary-continue full ventilator support, wean as tolerated, aggressive pulmonary toilet Cardiac-continue hemodynamic monitoring, stop levophed Continue nutritional support and bowel regimen -continue Early for hemodynamic monitoring FEN- continue to maintain hypernatremia in the 150-160 range Dispo-continue ICU care, patient remains critically ill with severe traumatic brain injury, seizure activity, acute respiratory failure prognosis guarded-family updated at the bed side Total critical care time 35 minutes Andria Bullock MD Sep 03, 2016 17:25
[2016-09-03] MEDS: ACETAMINOPHEN 325 MG TAB PO PRN (17:41)
[2016-09-03 19:06] LABS: POTASSIUM 3.8 MEQ/L (3.5-5.1)
[2016-09-04] VITALS (18 sets, daily range): BP systolic 111–134; BP diastolic 56–66; PULSE 78–90; RESP 18–24; TEMP 99–101.8; O2SAT 94–100
[2016-09-04] MEDS: PHENYTOIN INJ 100 MG/2 ML VIAL IV SCH ×4 (00:28→21:30)
[2016-09-04] MEDS: ACETAMINOPHEN 325 MG TAB PO PRN (00:28)
[2016-09-04] MEDS: ARTIFICIAL TEARS OPTH SOLN 15 ML BTL EACH EYE SCH ×3 (02:00→17:28)
[2016-09-04] MEDS: RESP: ALBUTEROL 2.5 MG/IPRATROPIUM 0.5 MG NEB (SCH) NEB ×4 (03:20→21:13)
[2016-09-04] MEDS: RESP: SODIUM CHLORIDE 3% 4 ML NEB NEB SCH ×4 (03:21→21:13)
[2016-09-04] MEDS: CHLORHEXIDINE GLUCONATE 2 % 1 PACK (2 CLOTHS) TOP SCH (04:00)
--- NOTE | 2016-09-04 04:06 | RADRPT ---
EXAM DATE/TIME: 09/04/2016 02:51 [facility] COMPARISON: CHEST SINGLE AP, September 03, 2016, 4:09. INDICATIONS : Respiratory failure. Patient remains intubated and is being followed for pulmonary infiltrates.. MEDICAL HISTORY : None. SURGICAL HISTORY : CABG. ENCOUNTER: Subsequent ACUITY: 1 week PAIN SCORE: Non-responsive. LOCATION: Bilateral chest FINDINGS: A single AP semierect portable view of the chest was obtained again demonstrates endotracheal tube in place with the tip approximately 3-4 cm above the caity. The nasogastric tube remains in place. The re is a right internal jugular central venous catheter in place. There is been no significant change in the bilateral alveolar infiltrates. The left hemidiaphragm remains obscured and the left costophre berny angle is blunted. Overlying electrocardiogram leads and oxygen tubing are again noted. CONCLUSION: 1. No significant change in the bilateral pulmonary infiltrates. These remain most consistent with pu lmonary edema. 2. The patient remains intubated. Kendrick Morelos MD on September 04, 2016 at 4:00 Board Certified Radiologist. This report was verified electronically.
[2016-09-04] MEDS: PIPERACIL-TAZO 4.5 GM PREMIX 100 ML IV SCH ×4 (04:19→23:40)
[2016-09-04] MEDS: PROPOFOL 1000 MG/100 ML INJ 100 ML IV SCH ×3 (04:20→19:39)
[2016-09-04] MEDS: fentaNYL DRIP 250 ML IV SCH ×2 (04:22→17:29)
[2016-09-04 05:20] LABS: BLOOD GAS BASE EXCESS 0.3 mmol/L (-2-2); BLOOD GAS CARBOXYHEMOGLOBIN 1.3 % (0-4); BLOOD GAS HCO3 24 mmol/L (22-26); BLOOD GAS METHEMOGLOBIN 0.8 % (0-2); BLOOD GAS O2 HGB SATURATION 93 % (90-100); BLOOD GAS OXYGEN CONTENT 12.9 Vol % (12.0-20.0); BLOOD GAS PCO2 35 mmHg (38-42); BLOOD GAS PO2 75 mmHg (61-120); BLOOD GAS TOTAL HGB 9.8 G/DL (12.0-16.0); TEMP CORR TO 98.6
[2016-09-04 05:21] LABS: CRITICAL VALUE NO; DRAW SITE ART LINE; FIO2 40 %; OXYGEN DEVICE VENTILATOR; STAT NO; VENT SETTINGS PRVC/AC
[2016-09-04] MEDS: guaiFENesin SOLUTION 200 MG/10 ML CUP DOBHOFF SCH ×3 (06:00→21:28)
[2016-09-04 06:20] LABS: AUTOMATED NEUTROPHIL # 14.5 TH/MM3 (1.8-7.7); BASOPHIL # 0.1 TH/MM3 (0-0.2); BASOPHIL % 0.3 % (0.0-2.0); EOSINOPHIL # 0.6 TH/MM3 (0-0.4); EOSINOPHIL % 3.1 % (0.0-4.0); HEMATOCRIT 24.5 % (39.0-51.0); LYMPH % 6.8 % (9.0-44.0); LYMPHOCYTE # 1.2 TH/MM3 (1.0-4.8); MEAN CORPUSCULAR HEMOGLOBIN 28.5 PG (27.0-34.0); MEAN CORPUSCULAR HGB CONC 33.6 % (32.0-36.0); MONO % 9.8 % (0.0-8.0); PLATELET COUNT 188 TH/MM3 (150-450); RED BLOOD COUNT 2.89 MIL/MM3 (4.50-5.90); WHITE BLOOD COUNT 18.2 TH/MM3 (4.0-11.0)
[2016-09-04 06:40] LABS: HEMO FLAGS AUTO DIFF
[2016-09-04 07:04] LABS: BICARBONATE 24.8 MEQ/L (21.0-32.0); MAGNESIUM 2.6 MG/DL (1.5-2.5); POTASSIUM 3.5 MEQ/L (3.5-5.1)
[2016-09-04 07:26] LABS: CALCIUM-PROTEIN CORRECTED 8.2 MG/DL (8.5-10.1)
[2016-09-04] MEDS ORDERED: FUROSEMIDE 40 MG/4 ML VIAL IV PUSH ONE (07:45)
[2016-09-04] MEDS ORDERED: POTASSIUM CHLOR 40 MEQ PREMIX 100 ML IV ONE (07:45)
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
[2016-09-04] MEDS ORDERED: POTASSIUM PHOSPHATE INJ 30 MMOL in SODIUM CHLOR 0.9% 250 ML INJ 250 ML IV ONE (08:00)
[2016-09-04] MEDS ORDERED: FOSPHENYTOIN SODIUM 500 MG PE/10 ML VIAL IV ONE (08:00)
[2016-09-04] MEDS: METOCLOPRAMIDE HCL 10 MG/2 ML VIAL IV PUSH SCH ×3 (08:29→21:31)
[2016-09-04] MEDS: levETIRAcetam INJ 1,500 MG in SODIUM CHLORIDE 0.9% INJ 100 ML IV SCH ×2 (08:31→21:29)
[2016-09-04] MEDS: CHLORHEXIDINE 0.12% (ORAL KIT) 15 ML CUP MT SCH ×2 (08:31→20:00)
[2016-09-04] MEDS: SODIUM CHLORIDE 0.9% FLUSH 5 ML FLUSH IVF SCH ×2 (08:34→21:29)
[2016-09-04] MEDS: DOCUSATE SODIUM 50 MG/SENNA 8.6 MG TAB PO SCH ×2 (08:34→21:29)
[2016-09-04] MEDS: PANTOPRAZOLE SODIUM 40 MG VIAL IVP SCH (08:34)
[2016-09-04] MEDS: 3% SALINE INJ 500 ML IV SCH (08:34)
[2016-09-04 10:05] LABS: BLOOD, URINE NEG (NEG); GLUCOSE,URINE NEG (NEG); KETONE, URINE NEG (NEG); NITRITE,URINE NEG (NEG); URINE COLOR LIGHT-YELLOW (YELLW/STRAW)
[2016-09-04 10:08] LABS: COMMENT (UR) CATH-CULT NOT IND; CULTURE IF INDICATED CATH CULTURE NOT IND
[2016-09-04 10:20] LABS: BANDS 44 % (0-6); BASOPHILS 1 % (0-2); EOSINOPHILS 4 % (0-4); NEUTROPHIL # MANUAL DIFF 16.2 TH/MM3 (1.8-7.7); PLATELET ESTIMATE SMEAR NORMAL (NORMAL); PLATELET MORPHOLOGY NORMAL (NORMAL); POLYS (SEG NEUTROPHILS) 45 % (16-70); SCAN/DIFF FINAL DIFF MANUAL; WBC DIFF SAMPLE 100
--- NOTE | 2016-09-04 10:44 | PD.PROCEDR ---
Central Line Procedure REASON FOR PROCEDURE Central venous access PROCEDURE PERFORMED Central line placement: Left internal jugular vein CONSENT Informed consent for procedure was obtained from manoj Salinas. The risks and benefits of the procedure were discussed to include but limited to bleeding, clot formation, infection, and even . ANESTHESIA Local injection of 1% Lidocaine DESCRIPTION OF THE PROCEDURE The patient was placed in supine, mild Trendelenburg position. The area was exposed and cleansed with ChloraPrep, times two. Large sterile drape was used to cover the patient, with the site exposed, under sterile conditions including cap, face mask, sterile gown, and sterile gloves. On single attempt, the introducer needle was inserted with negative pressure in syringe and venous flash was obtained. The guide wire was then advanced without any restriction and the needle was removed. The dilator was used without any complications. Using Seldinger technique the antibiotic-coated triple-lumen catheter was advanced over the guide wire to a depth of 20 centimeters. The guide wire was removed. All ports were aspirated with dark venous blood return and flushed easily with sterile saline. All ports were capped. Antibiotic disc was placed around central line at puncture site. The central line was secured to the skin with two interrupted 2.0 silk sutures. The area was bandaged with sterile see- through central line bandage. RADIOLOGICAL DATA Ultrasound guidance was used to locate left internal jugular vein. Doppler/ color flow was used to confirm venous flow. COMPLICATIONS: No apparent complications ESTIMATED BLOOD LOSS: Less than 1 cc. Moreno Elizabeth MD Sep 04, 2016 10:44
[2016-09-04] MEDS: SODIUM CHLORIDE 0.9% FLUSH 10 ML FLUSH IVF SCH (11:00)
--- NOTE | 2016-09-04 11:12 | RADRPT ---
EXAM DATE/TIME: 09/04/2016 10:42 [facility] COMPARISON: CHEST SINGLE AP, September 04, 2016, 2:51. INDICATIONS : Post central line placement. MEDICAL HISTORY : None. SURGICAL HISTORY : CABG. ENCOUNTER: Subsequent ACUITY: 1 week PAIN SCORE: Non-responsive. LOCATION: Bilateral chest FINDINGS: ET tube, central venous catheters and nasogastric tube are in good position. Right lung is clearing. Increasing consolidative changes are seen in the left base. CONCLUSION: 1. Increasing consolidative changes left base. 2. Central line in good position. Marlon Ross MD FACR on September 04, 2016 at 11:01 Board Certified Radiologist. This report was verified electronically.
--- NOTE | 2016-09-04 11:16 | MG ---
cc: MARIAH LANG M.D. Lab No: [id number] Date: 09/03/2016 Age: Sex: M Race: TECHNIQUE: 17 channel EEG. DESCRIPTION: The background rhythm again shows generalized slowing in the delta frequency at 3-4 Hz. PLEDS are identified as well over the right hemisphere but are improved from previous studies with lower amplitude and less frequent. No other abnormalities identified. INTERPRETATION: Abnormal study with generalized slowing as well as periodic lateralizing epileptiform discharges of the right hemisphere, which does appear modestly improved compared with the previous EEG. MD SHANDA Shaikh/KIRA /4:11 PM /5:45 PM
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
[2016-09-04 13:39] LABS: BICARBONATE 27.2 MEQ/L (21.0-32.0); MAGNESIUM 2.4 MG/DL (1.5-2.5); POTASSIUM 3.8 MEQ/L (3.5-5.1)
[2016-09-04 13:53] LABS: CALCIUM-PROTEIN CORRECTED 7.9 MG/DL (8.5-10.1)
[2016-09-04] MEDS ORDERED: Vancomycin Consult Pharmacy 1 EA OTHER SCH (14:00)
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
[2016-09-04] MEDS ORDERED: ROCURONIUM INJ 50 MG/5 ML VIAL IV ONE (15:15)
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
--- NOTE | 2016-09-04 16:37 | RADRPT ---
EXAM DATE/TIME: 09/04/2016 16:01 [facility] COMPARISON: No previous studies available for comparison. INDICATIONS : Bilateral leg edema. MEDICAL HISTORY : Decreased vision. Bronchitis. Heart attack. SURGICAL HISTORY : Craniotomy. Cardiac stents x2. Blood transfusions. PRK eye surgery. ENCOUNTER: Initial ACUITY: 1 day PAIN SCORE: Non-responsive LOCATION: Bilateral leg. TECHNIQUE: Venous ultrasound of the left and right leg was performed from the inguinal ligament to the proximal calf. Real-time, color Doppler and spectral tracing, compression and augmentation techniques were us ed. FINDINGS: RIGHT LEG: There is normal compressibility of the deep venous system from the inguinal region to the proximal ca lf. No echogenic clot is seen in the lumen of the common femoral, femoral, popliteal, and posterior tibial veins. There is a normal response of the venous system to proximal and distal augmentation an d respiration. LEFT LEG: There is normal compressibility of the deep venous system from the inguinal region to the proximal ca lf. No echogenic clot is seen in the lumen of the common femoral, femoral, popliteal, and posterior tibial veins. There is a normal response of the venous system to proximal and distal augmentation an d respiration. CONCLUSION: No DVT of either lower extremity. Gonzales Harper MD on September 04, 2016 at 16:35 Board Certified Radiologist. This report was verified electronically.
--- NOTE | 2016-09-04 16:44 | RADRPT ---
EXAM DATE/TIME: 09/04/2016 15:40 [facility] COMPARISON: CT ABDOMEN & PELVIS W CONTRAST, August 28, 2016, 11:06. INDICATIONS : Gram-negative mikey bacteremia. MEDICAL HISTORY : Decreased vision. Bronchitis. Heart attack. SURGICAL HISTORY : Craniotomy. Cardiac stents x2. Blood transfusions. PRK eye surgery. ENCOUNTER: Initial ACUITY: 1 day PAIN SCORE: Nonresponsive. LOCATION: Abdomen. MEASUREMENTS: LIVER: 18.4 cm length COMMON DUCT: 7 mm RIGHT KIDNEY: 11.3 x 5.0 x 3.9 cm LEFT KIDNEY: 11.9 x 5.3 x 4.7 cm SPLEEN: 11.1 cm length AORTA: 2.1cm maximal FINDINGS: There are small bilateral pleural effusions. There is also minimal amount of fluid surrounding the s uperior margin of the liver and the spleen. LIVER: Normal echotexture without focal lesion or ductal dilatation. Hepatopedal flow seen in the portal ve in. CT had demonstrated a tonguelike extension of the right lobe of the liver having a Alethea's lobe configuration. COMMON DUCT: No intraluminal mass or stone visualized. GALLBLADDER: There is some echogenic material within the lumen of the gallbladder having appearance characteristic of sludge. No echogenic or shadowing stones seen. The gallbladder wall measures up to 5 mm in thic kness. PANCREAS: The visualized portions are within normal limits. RIGHT KIDNEY: No hydronephrosis, stone or mass. LEFT KIDNEY: No hydronephrosis, stone or mass. Simple cyst in the parenchyma of the lower pole measuring 9 x 7 mm .. SPLEEN: No focal lesion. AORTA: Non aneurysmal. IVC: Within normal limits. CONCLUSION: 1. Minimal amount of abdominal fluid about the liver and spleen. Small bilateral pleural effusions. 2. Sludge within the gallbladder. No echogenic stones seen. 3. The superior/inferior dimension of the liver is above normal limits, but there is not a hepatomega ly due to Alethea's lobe configuration. Josh Hobbs MD on September 04, 2016 at 16:35 Board Certified Radiologist. This report was verified electronically.
--- NOTE | 2016-09-04 17:28 | PD.PROCEDR ---
Procedure Note Procedure Procedure Date: 09/04/2016 Procedure: Fiberoptic bronchoscopy with bronchoalveolar lavage, diagnostic and therapeutic Indication: Serratia pneumonia/persistent fevers Details of procedure: Informed consent was obtained from family after discussion of risks, benefits, alternatives. Patients neck remained in neutral position. The patient was preoxygenated with 100% FiO2 on ACV ventilation via endotracheal tube and sedated with fentanyl drip at 125 g per hour IV, propofol at 30 micrograms per kilo per minute and Versed 3mg an hour IV, and rocuronium 50 mg IV. I entered the endotracheal tube with a flexible bronchoscope. All lung segments were visually inspected. The caity was sharp. Mucosa was normal without signs of erythematous/suction trauma or bleeding. No masses were identified. The left main bronchus had some thick secretions were suctioned clear. Wedged in the left lower lobe and suctioned and mucous plugs/whitish with 30 cc sterile saline that was sent for cultures and cytology. Scope was withdrawn to the lingula with minimal secretions seen. Scope was withdrawn to the caity entered the right upper, middle and lower lobes. Again, mucosa was normal without erythema or bleeding. I suctioned the right middle and lower lobes with 30 cc sterile saline each thick white mucous plugs without complication. Copious amounts of thick white mucous plugs removed without complication. The patient tolerated the procedure well without any apparent complications. The bronchoscope was withdrawn. Saturations remained above 92% all times. A stat chest x-ray was ordered. Moreno Elizabeth MD Sep 04, 2016 17:28
[2016-09-04] MEDS: MIDAZOLAM 100 MG/ML INJ 100 ML IV SCH (17:29)
[2016-09-04 17:50] LABS: BLOOD GAS BASE EXCESS -0.2 mmol/L (-2-2); BLOOD GAS HCO3 24 mmol/L (22-26); BLOOD GAS METHEMOGLOBIN 0.5 % (0-2); BLOOD GAS O2 HGB SATURATION 94 % (90-100); BLOOD GAS OXYGEN CONTENT 12.3 Vol % (12.0-20.0); BLOOD GAS PCO2 38 mmHg (38-42); BLOOD GAS PO2 79 mmHg (61-120); BLOOD GAS TOTAL HGB 9.2 G/DL (12.0-16.0); TEMP CORR TO 98.6
[2016-09-04 17:51] LABS: CRITICAL VALUE NO; DRAW SITE ART LINE; FIO2 40 %; OXYGEN DEVICE VENTILATOR; STAT NO; VENT SETTINGS PRVC/AC 18/500
[2016-09-04 17:56] LABS: BRONCHOALVEOLAR LAVAGE RBC 2360 /MM3; BRONCHOALVEOLAR LAVAGE WBC 2150 /MM3; BRONCHOAVEOLAR LYMPHOCYTES 3 %; BRONCHOAVEOLAR NEUTROPHILS 97 %
--- NOTE | 2016-09-04 18:04 | RADRPT ---
EXAM DATE/TIME: 09/04/2016 17:30 [place] COMPARISON: CHEST SINGLE AP, September 04, 2016, 10:42. INDICATIONS : Shortness of breath. Post bronchoscopy. MEDICAL HISTORY : None. SURGICAL HISTORY : CABG. ENCOUNTER: Subsequent ACUITY: 2 weeks PAIN SCORE: 0/10 LOCATION: Bilateral chest FINDINGS: A single portable frontal view of the chest shows bilateral intraalveolar pulmonary infiltrates most pronounced on the left. His involves the upper and lower lobe. On the right is more perihilar in dist ribution. The consolidations are similar to the prior study given the differences in technique. No ef fusions. No pneumothorax. No pneumomediastinum. Tip of the endotracheal tube 5 cm cephalad to the car grazyna. Left internal jugular vein central venous line with the tip at the cavoatrial junction. Nasogast lida tube courses off the inferior margin of the film. Heart is normal in size. CONCLUSION: Unchanged bilateral pulmonary infiltrates. Josh Marina Jr., MD on September 04, 2016 at 17:59 Board Certified Radiologist. This report was verified electronically.
[2016-09-04] MEDS ORDERED: VANCOMYCIN INJ 1,200 MG in SODIUM CHLOR 0.9% 250 ML INJ 250 ML IV SCH (20:00)
[2016-09-05] VITALS (20 sets, daily range): BP systolic 104–158; BP diastolic 48–65; PULSE 79–103; RESP 21–34; TEMP 97–99.8; O2SAT 90–100
[2016-09-05] MEDS: ARTIFICIAL TEARS OPTH SOLN 15 ML BTL EACH EYE SCH ×3 (03:00→18:00)
[2016-09-05] MEDS: PROPOFOL 1000 MG/100 ML INJ 100 ML IV SCH ×3 (03:30→21:56)
[2016-09-05] MEDS: CHLORHEXIDINE GLUCONATE 2 % 1 PACK (2 CLOTHS) TOP SCH (03:30)
[2016-09-05] MEDS: RESP: ALBUTEROL 2.5 MG/IPRATROPIUM 0.5 MG NEB (SCH) NEB ×4 (03:34→21:02)
[2016-09-05] MEDS: RESP: SODIUM CHLORIDE 3% 4 ML NEB NEB SCH ×4 (03:35→21:17)
[2016-09-05] MEDS: guaiFENesin SOLUTION 200 MG/10 ML CUP DOBHOFF SCH ×3 (05:35→21:49)
[2016-09-05] MEDS: METOCLOPRAMIDE HCL 10 MG/2 ML VIAL IV PUSH SCH ×3 (05:36→21:54)
[2016-09-05] MEDS: PIPERACIL-TAZO 4.5 GM PREMIX 100 ML IV SCH ×4 (05:36→23:41)
[2016-09-05] MEDS: PHENYTOIN INJ 100 MG/2 ML VIAL IV SCH ×2 (05:36→14:51)
[2016-09-05 06:03] LABS: AUTOMATED NEUTROPHIL # 17.2 TH/MM3 (1.8-7.7); BASOPHIL # 0.1 TH/MM3 (0-0.2); BASOPHIL % 0.3 % (0.0-2.0); EOSINOPHIL # 0.1 TH/MM3 (0-0.4); EOSINOPHIL % 0.6 % (0.0-4.0); HEMATOCRIT 25.4 % (39.0-51.0); LYMPH % 4.8 % (9.0-44.0); MEAN CELL VOLUME 85.7 FL (80.0-100.0); MEAN CORPUSCULAR HEMOGLOBIN 28.2 PG (27.0-34.0); MEAN CORPUSCULAR HGB CONC 32.9 % (32.0-36.0); MONO % 8.1 % (0.0-8.0); NEUT % 86.2 % (16.0-70.0); PLATELET COUNT 223 TH/MM3 (150-450); RED BLOOD COUNT 2.97 MIL/MM3 (4.50-5.90); RED CELL DISTRIBUTION WIDTH 14.6 % (11.6-17.2)
[2016-09-05 06:14] LABS: HEMO FLAGS AUTO DIFF
[2016-09-05 06:31] LABS: CALCIUM-PROTEIN CORRECTED 8.2 MG/DL (8.5-10.1); MAGNESIUM 2.6 MG/DL (1.5-2.5); POTASSIUM 3.8 MEQ/L (3.5-5.1); TOTAL BILIRUBIN ADULT 1.2 MG/DL (0.2-1.0)
[2016-09-05] MEDS: MIDAZOLAM 100 MG/ML INJ 100 ML IV SCH ×2 (06:58→23:38)
[2016-09-05 08:04] LABS: BANDS 8 % (0-6); CORRECTED NUCLEATED RBC 2 /100 WBC (0-0); EOSINOPHILS 2 % (0-4); MYELOCYTES 1 % (0-0); NEUTROPHIL # MANUAL DIFF 17.6 TH/MM3 (1.8-7.7); PLATELET ESTIMATE SMEAR NORMAL (NORMAL); PLATELET MORPHOLOGY NORMAL (NORMAL); POLYS (SEG NEUTROPHILS) 79 % (16-70); SCAN/DIFF FINAL DIFF MANUAL; WBC DIFF SAMPLE 100
[2016-09-05] MEDS: 3% SALINE INJ 500 ML IV SCH (09:00)
[2016-09-05] MEDS: SODIUM CHLORIDE 0.9% FLUSH 5 ML FLUSH IVF SCH ×2 (09:00→21:54)
[2016-09-05] MEDS: SODIUM CHLORIDE 0.9% FLUSH 10 ML FLUSH IVF SCH (09:00)
[2016-09-05] MEDS: CHLORHEXIDINE 0.12% (ORAL KIT) 15 ML CUP MT SCH ×2 (09:17)
[2016-09-05] MEDS: VANCOMYCIN 1,000 MG/NS 250 ML IV SCH ×4 (09:18→21:52)
[2016-09-05] MEDS: PANTOPRAZOLE SODIUM 40 MG VIAL IVP SCH (09:18)
[2016-09-05] MEDS: DOCUSATE SODIUM 50 MG/SENNA 8.6 MG TAB PO SCH ×2 (09:18→21:49)
[2016-09-05] MEDS: levETIRAcetam INJ 1,500 MG in SODIUM CHLORIDE 0.9% INJ 100 ML IV SCH ×2 (09:35→21:50)
[2016-09-05] MEDS: LACTULOSE SYRUP 20 GM/30 ML CUP PO SCH (09:56)
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
[2016-09-05] MEDS: ACETAMINOPHEN 1000 MG/100 ML VIAL IV PRN (10:14)
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
[2016-09-05] MEDS: fentaNYL DRIP 250 ML IV SCH ×2 (11:45→23:38)
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
--- NOTE | 2016-09-05 12:40 | HHI.PR ---
Neuropsych Emotional Emotional: UnabletoAssess: Emotional, Anxious/Fearful, Depressed/Sad, Hostile/ Resentful, Irritable/Angry/Frustrate, Labile, Constricted/Blunted Behavior Behavior: Unable to Asses: Behavior, Coping/Acceptance, Cooperative w/ Treatment, Motivation, Frustration Tolerance/[place], Impulsive/Agitated, Suicidal/ Homicidal Risk Cognitive Cognitive: Unable to Asses: Cognitive, Attention/Concentration, Confused/ Orientation, Insight/Awareness, Judgement/Problem-Solving, Memory Psychosocial Psychosocial: Intact: Psychosocial, Family/Other Adjustment Progress Notes/Response to Tx Contents of Sessions: Level of Consciousness Premorbid psychological status Premorbid Cognitive, Emotional and Behavioral Status: Unable to Assess. There is no family to obtain such information. Behavioral Reactions of Patient and Family/Support System: Deferred. There is no family to discuss at present time. Emotional/Behavioral Status of Patient and Family/Support System: Deferred. Pertinent issues, if appropriate to this patients clinical care, are described in detail above. Maximizing acute care outcome It is recommended that the patient be monitored for emergent behavioral impulsivity as the medical condition evolves. This patients neuropathological challenges may limit their rehabilitation potential going forward, and these challenges will require specialized therapeutic skills to maximize outcome. Additionally, the patients family is experiencing ongoing issues of adjustment given the traumatic nature of the injury, and they may benefit from ongoing psychological assistance. Anticipated Problems Ongoing areas of concern will include behavioral impulsivity, lack of insight and judgment, which is expected to improve with time and treatment. Presently , the patient is not following commands and he is intubated and sedated. Treatment Plan This clinician will continue to follow with you throughout the course of this patients acute care treatment, and I will be available to meet with the patient s family/support system to facilitate their understanding and the ongoing care of their family member. The goals of neuropsychological intervention shall be both educational and supportive to the family/support system as is deemed clinically appropriate. [facility] Level: I:No response-total assistance Impression This patient suffered a severe traumatic brain injury secondary to a fall on 08/28, with expected residual neurocognitive and neurobehavioral impairments. Diagnosis: (1) Major neurocognitive disorder as late effect of traumatic brain injury without behavioral disturbance Status: Acute Progress Note Narrative Ongoing follow-up of patient seen during daily trauma rounds. This is day 8 post injury. The patient has had seizure activity that is now being treated. Patient remains intubated and sedated, He has made no neurobehavioral changes. He remains a [place]. I will continue to follow. Jaime Lopez PhD Sep 05, 2016 12:40 pm
--- NOTE | 2016-09-05 13:13 | PD.CONS ---
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 Right frontotemporal parietal decompressive craniotomy with placement ICP monitor Patient/Family Conference Present at Family Conference: multiple pt siblings at beside-- brothers, sisters in law, pt , later daughter via phone Family Conference Time (mins): 90 Family Conference Location: Bedside, Telephone Issues Discussed: met w brothjosy, at bedside x 30 min..Brother does much of the speaking, is quiet, defers to brother, and her sister. Offer to utilize translation service to provide update and consultation in their venetie ira language-- family indicates prefers they speak to her when needed- sister brother report comfortable with Vietnamese. Advise translation service available anytime. discussion included: * Palliative care role, purpose, approach * Additional medical, psychosocial, and spiritual history * Patients general health, functional status, and cognitive changes in the months leading up to the current hospitalization * Patient/family understanding of the current medical problems * Patient/family understanding of prognosis * legal decision makers per [place] statutes-- indicates she defers to the children . family informs that dtr has been serving as proxy. * Questions answered to the best of my ability * Palliative care contact information provided Family is awaiting fup CT brain per neuro tomorrow, and further review of prognosis upon this repeat imaging. Following bedside meeting, call to dtr,spoke w her approx 65 min. Discussion included the above, as well as the following: * code status * prognosis, possible trajectories based on current assess/clinical findings * potential for complications/setbacks/ prolongs hosp course-- need for ongoing procedures such as tracheostomy , peg etc to cont to provide aggressive tx ; versus alternative of no further aggressive measures and transition to comfort focus * goals of tx based on pt wishes dtr is a OFFICE ASSISTANCE. She appears to have a very good understanding of pts severe injury, assessments, ongoing tx and tx options. Daughter shares that though is is the primary proxy they are all working together as family to honor pts wishes. Family is very hopeful for some recovery, dtr is concerned regarding current neuro assessments/prognosis. She shares that pt is usually a very physically active, independent, vibrant individual with a strong sense of humor. He loves to mountain bike, and was looking forward to being active with his several young grandchildren. She is certain that he would not want to live in a nursing facility and would not be willing to undergo months of rehab if he would not regain most or "80% " of his prior function. He would not want to be dependent for ADLs, or unable to walk and enjoy the outdoors. She will await further update from neuro in the coming days RE repeat CT brain. She does not think pt would want trach /peg if he would not make a near full recovery. SHe is going to talk more w family RE code status. No changes at this time. Goals currently aggressive, though open to ongoing discussions as condition evolves. Assessment and Plan Disease Oriented Problem List: (1) Subdural hematoma Comment: s/p right frontotemporal parietal decompressive craniotomy 08/28 (2) Respiratory failure (3) Hypernatremia (4) Seizure (5) Serratia marcescens infection Comment: pneumonia Symptom Scale: Pertinent Non-Medical Issues Psychosocial:Bahamian. to( second) since 2007. 2 adult children ( from 2st marriage) . daughter lives in [place], is ICU nurse. Son lives in [place], is a [employer] guard animal husbandry technician. Pt is retired from the [employer], retired early in the past couple years to enjoy and active longterm. Pt just bought a home/ moved to [facility] 2 mos ago. Traveled to this area to [facility] bike. 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 defers to pt 2 adult children (from prior marriage). Son wants daughter, who is an RN to act as primary proxy. They are all working together on decisions, supporting one another. Ethical issues impacting care: Important Contacts daughter Rita (pronounced "Ween") Ron [phone] serving as healthcare proxy ([place]) - ([place]) Son- Ashli Velasquez ([place]) . Prognosis This patient was admitted 08/28 with a severe traumatic brain injury requiring emergent evacuation by neurosurgery as a life-saving measure. He has remained in critical condition on mechanical vent. . Code Status: Full Code Plan * Legal decision maker: per [place] statutes would be legal decision maker ( no living will or advanced directive). defers to pt 2 adult children (from prior marriage). Son wants daughter, who is an RN to act as primary proxy. They are all working together on decisions, supporting one another. * Goals:[ dtr is a OFFICE ASSISTANCE]. met w family, dtr today. She appears to have a very good understanding of pts severe injury, assessments, ongoing tx and tx options. Daughter shares that though is is the primary proxy they are all working together as family to honor pts wishes. Family is very hopeful for some recovery, dtr is concerned regarding current neuro assessments/prognosis. She shares that pt is usually a very physically active, independent, vibrant individual with a strong sense of humor. He loves to mountain bike, and was looking forward to being active with his several young grandchildren. She is certain that he would not want to live in a nursing facility and would not be willing to undergo months of rehab if he would not regain most or "80% " of his prior function. He would not want to be dependent for ADLs, or unable to walk and enjoy the outdoors. She will await further update from neuro in the coming days RE repeat CT brain. She does not think pt would want trach /peg if he would not make a near full recovery. They would proceed only if there was a very high chance of patient regaining moderate amount of independence and not require long-term care. She is going to talk more w family RE code status. No changes at this time. Goals currently aggressive, though open to ongoing discussions as condition evolves. They would consider transition to comfort focus if no neuro improvement or worsening in the coming days. Daughter will be back in town 09/12/16 and would like to wait to decide RE trach/PEG until that time. * CODE STATUS:full * SYMPTOMS: --encephalopathy- 2/2 severe TBI, SDH s/p emergent crani. Poor neuro response thus far. EEG severe slowing, + seizures, requiring multiple antiseizure medications. + gag, no withdrawal. --dyspnea- intubated emergently for airway protection 2/2 severe TBI -- seizures - managed per neurology, had recurrent sz despite keppra, Keppra increased, dilantin added -- pain- no chronic pain syndromes. potential sources include bedbound status , recent invasive procedures / no sx pain currently / will cont to evaluate * Palliative care will continue to follow during hospital course as condition evolves, to assist patient/decision-maker with understanding of medical conditions, weighing benefits/burdens of treatment options, for clarification of goals of treatment. Additionally will assist with any symptoms of palliative concern . Time Spent Total Floor Time (mins): 105 >50% Counseling/Coord of Care: Yes (95min speaking w family(in person, phone), +d/w RN, +d/w critical care attending) Thank you for the opportunity to participate in the care of Mr. Velasquez. Attestation To help prompt me to consider important information that might be impacting today's encounter and assessment, information from prior notes written by myself or my colleagues may have been "brought forward" into today's note. My signature on this note, however, is an attestation that I personally performed the exam, history, and/or decision-making noted today, and, unless otherwise indicated, the interactions with patient, family, and staff as well as the review of records all occurred today. I also attest that the listed assessment and stated plan reflect my best clinical judgment today based on the combination of historical information, prior notes, and today's exam/ interactions. When time spent is documented, it refers only to time spent today by the signer, or if indicated, combined time spent today by collaborating physician/nurse practitioner. Corrine Arteaga Sep 05, 2016 13:13
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
--- NOTE | 2016-09-05 20:10 | HHI.PR ---
Review/Management Diagnosis head trauma with sdh and intraparencymal hemorrhage right hemisphere Plan hold phenytoin as protein corrected level is high Diagnosis/Plan: Subjective Subjective Comments No acute events reported No focal seizures noted clinically Active Medications Current Medications Medications (Trade) Dose Ordered Sig/Leesa Route Start Time Stop Time Status Last Admin (Vasotec Inj) 1.25 mg Q8H PRN IV 08/28/16 11:00 Miscellaneous Information 1 Q361D XX 08/28/16 11:00 08/28/16 11:00 (NS Flush) 2 ml UNSCH PRN IVF 08/28/16 13:15 (NS Flush) 2 ml BID IVF 08/28/16 21:00 09/04/16 21:29 (Protonix Inj) 40 mg DAILY IVP 08/29/16 09:00 09/05/16 09:18 Calcium Gluconate 1 gm 1 gm UNSCH PRN IV 08/28/16 13:15 Potassium Chloride 100 ml @ 50 mls/hr UNSCH PRN IV 08/28/16 13:15 (Magnesium Sulfate Inj/NS Inj) 108 ml @ 108 mls/hr UNSCH PRN IV 08/28/16 13:15 Chlorhexidine Gluconate 15 ml 15 ml BID@08,20 [place] 08/28/16 20:00 09/05/16 09:17 Propofol 100 ml @ 0 mls/hr TITRATE IV 08/28/16 14:30 09/05/16 06:57 (fentaNYL DRIP) 250 ml @ 0 mls/hr TITRATE IV 08/28/16 14:30 09/05/16 11:45 (Zofran Inj) 4 mg Q6H PRN IV 08/28/16 14:30 09/01/16 14:43 Miscellaneous Information 1 Q361D XX 08/28/16 14:30 08/28/16 14:30 (Chlorhexidine 2% Cloth) Taper DAILY@04 TOP 08/29/16 04:00 08/25/17 03:59 09/05/16 03:30 (Chlorhexidine 2% Cloth) 3 pack UNSCH PRN TOP 08/28/16 14:30 (Adali-Colace) 1 tab BID PO 08/28/16 21:00 09/05/16 09:18 (Milk Of Magnesia Liq) 30 ml Q12H PRN PO 08/28/16 14:30 Sennosides 17.2 mg 17.2 mg Q12H PRN PO 08/28/16 14:30 (Versed Inj) 100 ml @ 0 mls/hr TITRATE IV 08/29/16 07:00 09/05/16 06:58 Miscellaneous Information D/C ICU ELECTROLYTE ORDERS... UNSCH PRN .XX 08/30/16 08:45 Miscellaneous Information ICU - CALL ORDERING PHYSIC... UNSCH PRN .XX 08/30/16 08:45 (KCl 40 Meq Premix Inj) 100 ml @ 25 mls/hr UNSCH PRN IV 08/30/16 08:45 09/03/16 06:29 Potassium Bicarb/ Potassium Chloride 50 meq 50 meq UNSCH PRN PO 08/30/16 08:45 Potassium Chloride 100 ml @ 50 mls/hr UNSCH PRN IV 08/30/16 08:45 Magnesium Sulfate 4 gm/Sodium Chloride 108 ml @ 54 mls/hr UNSCH PRN IV 08/30/16 08:45 (Magnesium Sulfate Inj/NS Inj) 104 ml @ 52 mls/hr UNSCH PRN IV 08/30/16 08:45 Magnesium Oxide 800 mg 800 mg UNSCH PRN PO 08/30/16 08:45 (Sodium Phosphate Inj/NS 250 ml Inj) 260 ml @ 43.333 mls/ hr UNSCH PRN IV 08/30/16 08:45 Potassium Phosphate 2000 mg 2,000 mg UNSCH PRN PO 08/30/16 08:45 08/30/16 08:58 (Potassium Phosphate Inj/NS 250 ml Inj) 260 ml @ 43.333 mls/ hr UNSCH PRN IV 08/30/16 08:45 08/31/16 05:02 (Tears Naturale Opth Soln) 1 drop Q8H EACH EYE 08/30/16 10:00 09/05/16 18:00 Glycerin 2 gm 2 gm BID PRN RECTAL 09/01/16 07:45 (Sodium Chloride 3% Inj) 500 ml @ 10 mls/hr Q24H IV 09/01/16 09:00 09/04/16 08:34 Terbutaline Sulfate 1 mg 1 mg UNSCH PRN SQ 09/01/16 11:15 Norepinephrine Bitartrate 16 mg/ Sodium Chloride 266 ml @ 0 mls/hr TITRATE IV 09/01/16 16:16 09/03/16 09:48 (Zosyn 4.5 Gm Premix) 100 ml @ 200 mls/hr Q6H IV 09/01/16 17:30 09/05/16 18:44 (Robitussin Liq) 400 mg Q8HR DOBHOFF 09/02/16 14:00 09/07/16 13:59 09/05/16 14:50 Metoclopramide HCl 5 mg 5 mg Q8HR IV PUSH 09/02/16 09:45 09/05/16 14:50 (Keppra Inj/NS Inj) 115 ml @ 230 mls/hr Q12H IV 09/02/16 21:00 09/05/16 09:35 (NS Flush) DAILY IVF 09/04/16 11:00 09/04/16 11:00 Sodium Chloride UNSCH PRN IVF 09/04/16 10:45 (Vancomycin Consult Pharmacy) 0 ml @ 0 mls/hr UNSCH OTHER 09/04/16 14:00 (Dilantin Inj) 100 mg Q8HR IV 09/04/16 22:00 09/05/16 14:51 Acetaminophen 650 mg 650 mg Q4HR PRN PO 09/04/16 16:00 (Vancomycin Inj/ NS 250 ml Inj) 250 ml @ 250 mls/hr Q12H IV 09/05/16 09:00 09/05/16 09:18 Miscellaneous Information SPECIFIC LAB TO BE DRAWN:VANCO TROUGH DATE TO... ONCE ONCE .XX 09/06/16 08:45 09/06/16 08:46 (Ofirmev Inj) 1,000 mg Q12HR PRN IV 09/05/16 09:30 09/05/16 10:14 (Lactulose Liq) 30 ml DAILY PO 09/05/16 09:30 09/05/16 09:56 Allergies Allergies Coded Allergies No Known Allergies (Unverified09/03/16) Exam I&O / VS 09/04/16 09/04/16 09/05/16 15:00 23:00 07:00 Intake Total 1390 ml 1079 ml 1087 ml Output Total 3255 ml 585.0 ml 712 ml Balance -1865 ml 494.0 ml 375 ml IV Total 1219 ml 769 ml 533 ml Tube Feeding 111 ml 220 ml 494 ml Tube Irrigant 90 ml 60 ml Other 60 ml Output Urine Total 3175 ml 500 ml 640 ml Tube Feeding Residual Discard 0 ml 0 ml 0 ml Drainage Total 80 ml 85 ml 72 ml # Bowel Movements 0 0 0 Vital Signs Date Time Temp Pulse Resp B/P Pulse Ox O2 Delivery O2 Flow Rate FiO2 09/05/16 19:39 93 50 09/05/16 19:00 97 Mechanical Ventilator 50 09/05/16 15:14 98 40 09/05/16 12:08 98 40 09/05/16 12:00 98 09/05/16 12:00 98.7 98 32 137/58 97 09/05/16 12:00 40 09/05/16 10:00 96 09/05/16 08:20 96 40 09/05/16 08:00 97.8 84 33 134/64 90 09/05/16 08:00 40 09/05/16 08:00 84 09/05/16 07:00 99 Mechanical Ventilator 40 09/05/16 06:00 89 09/05/16 04:07 93 40 09/05/16 04:00 40 09/05/16 04:00 92 09/05/16 04:00 98.0 92 27 141/65 94 09/05/16 02:00 88 09/05/16 00:13 99 40 09/05/16 00:00 40 09/05/16 00:00 79 09/05/16 00:00 97.0 79 26 113/55 99 09/04/16 22:00 99.0 87 19 111/66 96 09/04/16 22:00 40 09/04/16 22:00 87 09/04/16 21:05 98 40 Exam Comments nonresponsive pupils 2mm symmetric no spontaneous limb movement, no focal sz. Objective Micro and Labs Laboratory Tests Test 09/05/16 09/05/16 00:00 05:45 Sodium Level 152 150 Serum Osmolality 319 322 White Blood Count 20.0 Red Blood Count 2.97 Hemoglobin 8.4 Hematocrit 25.4 Mean Corpuscular Volume 85.7 Mean Corpuscular Hemoglobin 28.2 Mean Corpuscular Hemoglobin 32.9 Concent Red Cell Distribution Width 14.6 Platelet Count 223 Mean Platelet Volume 9.0 Neutrophils (%) (Auto) 86.2 Lymphocytes (%) (Auto) 4.8 Monocytes (%) (Auto) 8.1 Eosinophils (%) (Auto) 0.6 Basophils (%) (Auto) 0.3 Neutrophils # (Auto) 17.2 Lymphocytes # (Auto) 1.0 Monocytes # (Auto) 1.6 Eosinophils # (Auto) 0.1 Basophils # (Auto) 0.1 CBC Comment AUTO DIFF Differential Total Cells 100 Counted Neutrophils % (Manual) 79 Band Neutrophils % 8 Lymphocytes % 4 Monocytes % 6 Eosinophils % 2 Neutrophils # (Manual) 17.6 Myelocytes 1 Nucleated Red Blood Cells 2 Differential Comment FINAL DIFF MANUAL Platelet Estimate NORMAL Platelet Morphology Comment NORMAL Red Cell Morphology Comment NORMAL Potassium Level 3.8 Chloride Level 116 Carbon Dioxide Level 25.0 Anion Gap 9 Blood Urea Nitrogen 20 Creatinine 0.54 Estimat Glomerular Filtration 155 Rate Random Glucose 200 Calcium Level 7.4 Protein Corrected Calcium 8.2 Phosphorus Level 2.5 Magnesium Level 2.6 Total Bilirubin 1.2 Aspartate Amino Transf 53 (AST/SGOT) Alanine Aminotransferase 41 (ALT/SGPT) Alkaline Phosphatase 147 Total Protein 5.6 Albumin 1.4 Phenytoin (Dilantin) Level 17.3 Date/Time Procedure Status Source Growth 09/04/16 16:40 Gram Stain - Final Resulted Bronchial Washings Left Lower Lobe 09/04/16 16:40 Bronchial Culture - Preliminary Resulted Staphylococcus Aureus Gram Negative Jignesh 09/04/16 16:40 Fungal Smear - Final Resulted Bronchial Washings Left Lower Lobe NO FUNGAL ELEMENTS SEEN. 09/04/16 16:40 Fungal Culture Resulted Bronchial Washings Left Lower Lobe Pending 09/04/16 16:40 Acid Fast Stain Received Bronchial Washings Left Lower Lobe Pending 09/04/16 16:40 Mycobacterial Culture Received Bronchial Washings Left Lower Lobe Pending 09/04/16 11:55 Aerobic Blood Culture - Preliminary Resulted Blood Peripheral Gram Positive Cocci 09/04/16 11:55 Anaerobic Blood Culture - Preliminary Resulted Blood Peripheral NO GROWTH IN 1 DAY 09/01/16 09:50 Aerobic Blood Culture - Final Complete Blood Peripheral Cornyebacterium Not Jk 09/01/16 09:50 Anaerobic Blood Culture - Final Complete Cornyebacterium Not Jk Celio Chris PhD Sep 05, 2016 20:09
[2016-09-05] MEDS: SODIUM CHLOR 0.9% IV SCH (21:55)
[2016-09-05] MEDS: NOREPINEPHRINE IV SCH (21:55)
[2016-09-06] VITALS (18 sets, daily range): BP systolic 122–156; BP diastolic 56–85; PULSE 66–102; RESP 18–30; TEMP 96.8–99.9; O2SAT 95–100
[2016-09-06] MEDS: PROPOFOL 1000 MG/100 ML INJ 100 ML IV SCH ×4 (02:14→18:55)
[2016-09-06] MEDS: ARTIFICIAL TEARS OPTH SOLN 15 ML BTL EACH EYE SCH ×3 (02:14→18:00)
[2016-09-06] MEDS: 3% SALINE INJ 500 ML IV SCH (02:35)
[2016-09-06] MEDS: CHLORHEXIDINE GLUCONATE 2 % 1 PACK (2 CLOTHS) TOP SCH (03:00)
[2016-09-06] MEDS: RESP: SODIUM CHLORIDE 3% 4 ML NEB NEB SCH ×4 (03:27→20:21)
[2016-09-06] MEDS: RESP: ALBUTEROL 2.5 MG/IPRATROPIUM 0.5 MG NEB (SCH) NEB ×4 (03:27→20:22)
--- NOTE | 2016-09-06 05:41 | RADRPT ---
EXAM DATE/TIME: 09/06/2016 04:25 [facility] COMPARISON: CHEST SINGLE AP, September 04, 2016, 17:30. INDICATIONS : Short of breath. MEDICAL HISTORY : None. SURGICAL HISTORY : CABG. ENCOUNTER: Subsequent ACUITY: 2 weeks PAIN SCORE: Non-responsive. LOCATION: Bilateral chest FINDINGS: There is worsening airspace process bilaterally since the prior exam. Lines and tubes are present not significantly changed. CONCLUSION: Worsening airspace process bilaterally. Marquis Almodovar MD on September 06, 2016 at 5:39 Board Certified Radiologist. This report was verified electronically.
[2016-09-06 05:44] LABS: AUTOMATED NEUTROPHIL # 14.1 TH/MM3 (1.8-7.7); BASOPHIL # 0.1 TH/MM3 (0-0.2); BASOPHIL % 0.4 % (0.0-2.0); EOSINOPHIL # 0.5 TH/MM3 (0-0.4); EOSINOPHIL % 2.8 % (0.0-4.0); HEMATOCRIT 26.6 % (39.0-51.0); MEAN CELL VOLUME 85.4 FL (80.0-100.0); MEAN CORPUSCULAR HEMOGLOBIN 27.8 PG (27.0-34.0); MEAN CORPUSCULAR HGB CONC 32.6 % (32.0-36.0); NEUT % 82.8 % (16.0-70.0); PLATELET COUNT 257 TH/MM3 (150-450); RED BLOOD COUNT 3.11 MIL/MM3 (4.50-5.90); RED CELL DISTRIBUTION WIDTH 14.5 % (11.6-17.2); WHITE BLOOD COUNT 17.1 TH/MM3 (4.0-11.0)
[2016-09-06 05:46] LABS: HEMO FLAGS AUTO DIFF
[2016-09-06] MEDS: PIPERACIL-TAZO 4.5 GM PREMIX 100 ML IV SCH (05:54)
[2016-09-06 05:55] LABS: ANION GAP 10 MEQ/L (5-15); AST (GOT) 83 U/L (15-37); BICARBONATE 25.3 MEQ/L (21.0-32.0); BLOOD UREA NITROGEN 19 MG/DL (7-18); CHLORIDE 115 MEQ/L (98-107); GLOMERULAR FILTRATION RATE 177 ML/MIN (>89); MAGNESIUM 2.5 MG/DL (1.5-2.5); POTASSIUM 3.3 MEQ/L (3.5-5.1); SODIUM (NA) 150 MEQ/L (136-145)
[2016-09-06] MEDS: guaiFENesin SOLUTION 200 MG/10 ML CUP DOBHOFF SCH ×3 (05:55→22:38)
[2016-09-06] MEDS: METOCLOPRAMIDE HCL 10 MG/2 ML VIAL IV PUSH SCH ×3 (05:55→22:37)
[2016-09-06 05:56] LABS: ALT (GPT) 71 U/L (12-78)
[2016-09-06 05:58] LABS: BLOOD GAS BASE EXCESS 2.6 mmol/L (-2-2); BLOOD GAS CARBOXYHEMOGLOBIN 1.3 % (0-4); BLOOD GAS HCO3 26 mmol/L (22-26); BLOOD GAS METHEMOGLOBIN 0.8 % (0-2); BLOOD GAS O2 HGB SATURATION 91 % (90-100); BLOOD GAS OXYGEN CONTENT 11.5 Vol % (12.0-20.0); BLOOD GAS PCO2 37 mmHg (38-42); BLOOD GAS PO2 65 mmHg (61-120); CRITICAL VALUE NO; DRAW SITE ART LINE; FIO2 60 %; OXYGEN DEVICE VENTILATOR; STAT NO; TEMP CORR TO 98.6; VENT SETTINGS PRVC/AC
[2016-09-06 05:58] LABS: ALKALINE PHOSPHATASE 226 U/L (45-117); TOTAL BILIRUBIN ADULT 1.2 MG/DL (0.2-1.0)
[2016-09-06] MEDS: ICU - POTASSIUM CHLORIDE/AQUEOUS SOLN 40 MEQ/100 ML IVPB IV PRN (06:36)
[2016-09-06] MEDS ORDERED: BISACODYL 10 MG SUPP RECTAL ONE (06:45)
[2016-09-06 06:55] LABS: BANDS 23 % (0-6); EOSINOPHILS 1 % (0-4); METAMYELOCYTES 2 % (0-1); NEUTROPHIL # MANUAL DIFF 15.4 TH/MM3 (1.8-7.7); POLYS (SEG NEUTROPHILS) 65 % (16-70); WBC DIFF SAMPLE 100
[2016-09-06 06:57] LABS: KERATOCYTES OCC (NORMAL); PLATELET ESTIMATE SMEAR NORMAL (NORMAL); PLATELET MORPHOLOGY NORMAL (NORMAL); SCAN/DIFF FINAL DIFF MANUAL
[2016-09-06] MEDS ORDERED: PHARMACY ORDERED LAB ONE (08:45)
[2016-09-06] MEDS: SODIUM CHLORIDE 0.9% FLUSH 5 ML FLUSH IVF SCH ×2 (09:00→20:00)
[2016-09-06] MEDS: DOCUSATE SODIUM 50 MG/SENNA 8.6 MG TAB PO SCH ×2 (09:53→22:37)
[2016-09-06] MEDS: LACTULOSE SYRUP 20 GM/30 ML CUP PO SCH (09:53)
[2016-09-06] MEDS: fentaNYL DRIP 250 ML IV SCH ×2 (09:53→20:10)
[2016-09-06] MEDS: levETIRAcetam INJ 1,500 MG in SODIUM CHLORIDE 0.9% INJ 100 ML IV SCH ×2 (09:53→22:38)
[2016-09-06] MEDS: SODIUM CHLORIDE 0.9% FLUSH 10 ML FLUSH IVF SCH (09:54)
[2016-09-06] MEDS: CHLORHEXIDINE 0.12% (ORAL KIT) 15 ML CUP MT SCH ×2 (09:54→20:00)
[2016-09-06] MEDS: PANTOPRAZOLE SODIUM 40 MG VIAL IVP SCH (10:14)
[2016-09-06] MEDS: VANCOMYCIN 1,000 MG/NS 250 ML IV SCH ×2 (10:15)
[2016-09-06] MEDS: CEFEPIME INJ 2,000 MG in SODIUM CHLORIDE 0.9% INJ 100 ML IV SCH ×2 (10:15→18:55)
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
--- NOTE | 2016-09-06 12:59 | RADRPT ---
EXAM DATE/TIME: 09/06/2016 12:16 [place] COMPARISON: CT BRAIN W/O CONTRAST, September 01, 2016, 17:23. INDICATIONS : Intracerebral hemorrhage follow up. RADIATION DOSE: 50.10 CTDIvol (mGy) MEDICAL HISTORY : Cardiovascular disease. SURGICAL HISTORY : None. ENCOUNTER: Subsequent ACUITY: 1 day PAIN SCALE: 0/10 LOCATION: Cranial TECHNIQUE: Multiple contiguous axial images were obtained of the head. Using automated exposure control and adj ustment of the mA and/or kV according to patient size, radiation dose was kept as low as reasonably a chievable to obtain optimal diagnostic quality images. FINDINGS: The previously noted acute parenchymal hemorrhage within the left frontal lobe measured 1.7 cm it is stable. The right tentorial subdural hematoma is also stable. Minimal subarachnoid hemorrhage is again noted wit hin the left high parietal sulci and is stable. No new areas of hemorrhage are noted. The patient is status post right-sided craniectomy. There is persistent subfalcine herniation to the left measuring 3 mm which is unchanged . The ventricles are stable. There is a stable tiny acute subdural hematoma involving the posterior aspect of the right high parietal region measuring 4 cm in thickness. CONCLUSION: 1. Stable 1.7 cm left frontal intraparenchymal hemorrhage, tiny areas of subarachnoid hemorrhage wit hin the left high parietal region and right tentorial subdural hematoma. Minimal subdural hematoma i s also noted within the right posterior high parietal region measuring 4 mm in thickness. 2. Minimal stable subfalcine herniation to the left measuring 3 mm. Ryley Zelaya MD on September 06, 2016 at 12:26 Board Certified Radiologist. This report was verified electronically.
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
[2016-09-06] MEDS: LACOSAMIDE INJ 50 MG in SODIUM CHLORIDE 0.9% INJ 100 ML IV SCH ×2 (14:26→22:38)
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
--- NOTE | 2016-09-06 16:29 | HHI.HCPN ---
Reason for visit a. To assist with evaluation and management of symptoms including: dyspnea, encephalopathy, seizures b. To assist medical decision maker(s) with: better understanding of current medical conditions; weighing benefits/burdens of medical treatment options; making medical treatment decisions. (Corrine Arteaga) Subjective/Interval History Pt seen today to follow up on goals w family/decision makers. Stable overnight. Has been weaned off levophed. Repeat CT brain earlier today. = stable/no new hemorrhage. No change in neuro assess per nurse. + on diprivan 40mcgs, fentanyl 200mcgs, Versed 20mg hr. CXR = Worsening airspace process bilaterally. Sputum from 09/04 =+Staphylococcus Aureus, +Klebsiella Pneumoniae, +Enterobacter Aerogenes. Ceftriaxone added by ID. Chelsie BYERS'yaneth, remains on Vanco. WBC 17. Temps in the 9090s. Vimpat added by neurology. Met with patient brother, in conference room, they called daughter on face times during discussion. Daughter requested I call her again later as well. To my exam nonresponsive. + gag when RN suctioned. + spont respirations over vent rate. No withdrawal to pain stimuli. D/w critical care, RN. Family/friend interactions Spoke with family review of current conditions, diagnoses, and prognosis. (I again offered use of translation service for the , she declined) Review recent diagnostics and treatments in place. Review preliminary CT findings per radiologist review. Review current neurological assessment. Review treatment options, probable trajectory going forward. Patient brother, daughter endorse patient would not want to continue with artificial measures if you would not make a near full recovery. is in agreement with this. They would like to continue current treatments and aggressive measures including full CODE STATUS until additional family is able to arrive on Monday. His adult children wish to spend Monday with him for Father's Day, probable transition to comfort focus on Monday09/12/16. They do NOT feel pt would want to proceed w trach, PEG. . (Corrine Arteaga) Advance Directives Living Will: Never completed Health Care Surrogate: Never completed Durable Power of C2 Tactical Analysis Technician: Never completed (Corrine Arteaga) Objective Vital Signs Date Time Temp Pulse Resp B/P Pulse Ox O2 Delivery O2 Flow Rate FiO2 09/06/16 12:53 98 50 09/06/16 07:36 100 50 09/06/16 06:00 93 09/06/16 04:24 97 60 09/06/16 04:00 60 09/06/16 04:00 98.8 66 30 151/60 95 09/06/16 04:00 66 09/06/16 02:00 93 09/06/16 00:14 99 50 09/06/16 00:00 96.9 77 19 122/56 99 09/06/16 00:00 77 09/06/16 00:00 55 09/05/16 22:00 96 09/05/16 21:48 95 55 09/05/16 21:22 94 60 09/05/16 20:00 103 09/05/16 20:00 50 09/05/16 20:00 99.8 103 34 158/60 94 09/05/16 19:39 93 50 09/05/16 19:00 97 Mechanical Ventilator 50 09/05/16 18:00 94 09/05/16 16:00 40 09/05/16 16:00 82 09/05/16 16:00 99.2 82 21 104/48 100 Intake & Output 09/06/16 09/06/16 07:00 19:00 Intake Total 2296 ml Output Total 1465.0 ml Balance 831.0 ml IV Total 1326 ml Tube Feeding 780 ml Tube Irrigant 190 ml Output Urine Total 1300 ml Tube Feeding Residual Discard 0 ml Drainage Total 165 ml # Bowel Movements 0 Physical Exam CONSTITUTIONAL/GENERAL: This is an adequately nourished patient, in no apparent distress, nonresponsive on mech vent TUBES/LINES/DRAINS:central line, ETT, OGT, SCDs, soft restraints BUE, arterial line HEAD: healing incision rt head, JPs x2. sommer intact CARDIOVASCULAR: Regular rate and rhythm , no murmurs.Peripheral pulses symmetric.+ generalized edema to extremities. RESPIRATORY/CHEST: Symmetric, unlabored respirations via mech vent. + spont respirations over vent rate. Clear to auscultation. Breath sounds equal bilaterally. GASTROINTESTINAL: Abdomen soft, flat, unable to determine tenderness, nondistended. No palpable masses. Bowel sounds present. GENITOURINARY: Without palpable bladder distension. Early catheter in place. NEUROLOGICAL: sedated/nonresponsive. Fentanyl 200mcgs/hr. Diprivan 40mcgs/kg/ min.versed 20mg hr. no withdrawal to pain stimuli. No eye opening. pupils pinpoint/questionable reaction to light. no corneal reflex. PSYCHIATRIC: sedated/limited assess due to condition. . (Corrine Arteaga) Diagnostic Tests Laboratory Laboratory Tests Test 09/03/16 09/04/16 09/04/16 09/04/16 18:15 04:58 05:45 09:15 Sodium Level 153 MEQ/L 154 MEQ/L (136-145) (136-145) Potassium Level 3.8 MEQ/L 3.5 MEQ/L (3.5-5.1) (3.5-5.1) Serum Osmolality 319 MOSM/KG 320 MOSM/KG (275-295) (275-295) Blood Gas Puncture Site ART LINE Blood Gas Patient Temperature 98.6 Blood Gas HCO3 24 mmol/L (22-26) Blood Gas Base Excess 0.3 mmol/L (-2-2) Blood Gas Oxygen Saturation 93 % (90-100) Arterial Blood pH 7.45 (7.380-7.420) Arterial Blood Partial 35 mmHg (38-42) Pressure CO2 Arterial Blood Partial 75 mmHg Pressure O2 (61-120) Arterial Blood Oxygen Content 12.9 Vol % (12.0-20.0) Arterial Blood 1.3 % (0-4) Carboxyhemoglobin Arterial Blood Methemoglobin 0.8 % (0-2) Blood Gas Hemoglobin 9.8 G/DL (12.0-16.0) Oxygen Delivery Device VENTILATOR Blood Gas Ventilator Setting PRVC/AC Blood Gas Inspired Oxygen 40 % White Blood Count 18.2 TH/MM3 (4.0-11.0) Red Blood Count 2.89 MIL/MM3 (4.50-5.90) Hemoglobin 8.2 GM/DL (13.0-17.0) Hematocrit 24.5 % (39.0-51.0) Mean Corpuscular Volume 85.0 FL (80.0-100.0) Mean Corpuscular Hemoglobin 28.5 PG (27.0-34.0) Mean Corpuscular Hemoglobin 33.6 % Concent (32.0-36.0) Red Cell Distribution Width 15.0 % (11.6-17.2) Platelet Count 188 TH/MM3 (150-450) Mean Platelet Volume 9.1 FL (7.0-11.0) Neutrophils (%) (Auto) 80.0 % (16.0-70.0) Lymphocytes (%) (Auto) 6.8 % (9.0-44.0) Monocytes (%) (Auto) 9.8 % (0.0-8.0) Eosinophils (%) (Auto) 3.1 % (0.0-4.0) Basophils (%) (Auto) 0.3 % (0.0-2.0) Neutrophils # (Auto) 14.5 TH/MM3 (1.8-7.7) Lymphocytes # (Auto) 1.2 TH/MM3 (1.0-4.8) Monocytes # (Auto) 1.8 TH/MM3 (0-0.9) Eosinophils # (Auto) 0.6 TH/MM3 (0-0.4) Basophils # (Auto) 0.1 TH/MM3 (0-0.2) CBC Comment AUTO DIFF Differential Total Cells 100 Counted Neutrophils % (Manual) 45 % (16-70) Band Neutrophils % 44 % (0-6) Lymphocytes % 3 % (9-44) Monocytes % 3 % (0-8) Eosinophils % 4 % (0-4) Basophils % 1 % (0-2) Neutrophils # (Manual) 16.2 TH/MM3 (1.8-7.7) Differential Comment FINAL DIFF MANUAL Platelet Estimate NORMAL (NORMAL) Platelet Morphology Comment NORMAL (NORMAL) Chloride Level 121 MEQ/L (98-107) Carbon Dioxide Level 24.8 MEQ/L (21.0-32.0) Anion Gap 8 MEQ/L (5-15) Blood Urea Nitrogen 13 MG/DL (7-18) Creatinine 0.70 MG/DL (0.60-1.30) Estimat Glomerular Filtration 115 ML/MIN Rate (>89) Random Glucose 166 MG/DL (74-106) Calcium Level 7.2 MG/DL (8.5-10.1) Protein Corrected Calcium 8.2 MG/DL (8.5-10.1) Phosphorus Level 1.6 MG/DL (2.5-4.9) Magnesium Level 2.6 MG/DL (1.5-2.5) Total Protein 5.3 GM/DL (6.4-8.2) Phenytoin (Dilantin) Level 8.8 MCG/ML (10.0-20.0) Urine Color LIGHT-YELLOW (YELLW/STRAW) Urine Turbidity CLEAR (CLEAR) Urine pH 7.0 (5.0-8.5) Urine Specific [place] 1.006 (1.002-1.035) Urine Protein NEG mg/dL (NEG-TRACE) Urine Glucose (UA) NEG mg/dL (NEG) Urine Ketones NEG mg/dL (NEG) Urine Occult Blood NEG (NEG) Urine Nitrite NEG (NEG) Urine Bilirubin NEG (NEG) Urine Urobilinogen LESS THAN 2.0 MG/DL (LESS THAN 2.0) Urine Leukocyte Esterase NEG (NEG) Urine RBC LESS THAN 1 /hpf (0-3) Microscopic Urinalysis Comment CATH-CULT NOT IND Test 09/04/16 09/04/16 09/04/16 09/04/16 12:55 16:40 16:50 17:42 Sodium Level 153 MEQ/L 153 MEQ/L (136-145) (136-145) Potassium Level 3.8 MEQ/L (3.5-5.1) Chloride Level 118 MEQ/L (98-107) Carbon Dioxide Level 27.2 MEQ/L (21.0-32.0) Anion Gap 8 MEQ/L (5-15) Blood Urea Nitrogen 13 MG/DL (7-18) Creatinine 0.72 MG/DL (0.60-1.30) Estimat Glomerular Filtration 111 ML/MIN Rate (>89) Random Glucose 105 MG/DL (74-106) Serum Osmolality 314 MOSM/KG 320 MOSM/KG (275-295) (275-295) Calcium Level 7.1 MG/DL (8.5-10.1) Protein Corrected Calcium 7.9 MG/DL (8.5-10.1) Magnesium Level 2.4 MG/DL (1.5-2.5) Total Protein 5.6 GM/DL (6.4-8.2) Bronchoalveolar Lavage WBC 2150 /MM3 Bronchoalveolar Lavage RBC 2360 /MM3 Bronchoalveolar Lavage 97 % Neutrophils Bronchoalveolar Lavage 3 % Lymphocytes Lavage Fluid Total Volume 20.0 ML Lavage Fluid Total WBC Count 43.000 MILLION (4.700-7.100) Blood Gas Puncture Site ART LINE Blood Gas Patient Temperature 98.6 Blood Gas HCO3 24 mmol/L (22-26) Blood Gas Base Excess -0.2 mmol/L (-2-2) Blood Gas Oxygen Saturation 94 % (90-100) Arterial Blood pH 7.41 (7.380-7.420) Arterial Blood Partial 38 mmHg (38-42) Pressure CO2 Arterial Blood Partial 79 mmHg Pressure O2 (61-120) Arterial Blood Oxygen Content 12.3 Vol % (12.0-20.0) Arterial Blood 1.0 % (0-4) Carboxyhemoglobin Arterial Blood Methemoglobin 0.5 % (0-2) Blood Gas Hemoglobin 9.2 G/DL (12.0-16.0) Oxygen Delivery Device VENTILATOR Blood Gas Ventilator Setting PSYCHIATRIC/AC 18/500 Blood Gas Inspired Oxygen 40 % Test 09/05/16 09/05/16 09/06/16 09/06/16 00:00 05:45 05:15 05:32 Sodium Level 152 MEQ/L 150 MEQ/L 150 MEQ/L (136-145) (136-145) (136-145) Serum Osmolality 319 MOSM/KG 322 MOSM/KG (275-295) (275-295) White Blood Count 20.0 TH/MM3 17.1 TH/MM3 (4.0-11.0) (4.0-11.0) Red Blood Count 2.97 MIL/MM3 3.11 MIL/MM3 (4.50-5.90) (4.50-5.90) Hemoglobin 8.4 GM/DL 8.7 GM/DL (13.0-17.0) (13.0-17.0) Hematocrit 25.4 % 26.6 % (39.0-51.0) (39.0-51.0) Mean Corpuscular Volume 85.7 FL 85.4 FL (80.0-100.0) (80.0-100.0) Mean Corpuscular Hemoglobin 28.2 PG 27.8 PG (27.0-34.0) (27.0-34.0) Mean Corpuscular Hemoglobin 32.9 % 32.6 % Concent (32.0-36.0) (32.0-36.0) Red Cell Distribution Width 14.6 % 14.5 % (11.6-17.2) (11.6-17.2) Platelet Count 223 TH/MM3 257 TH/MM3 (150-450) (150-450) Mean Platelet Volume 9.0 FL 8.9 FL (7.0-11.0) (7.0-11.0) Neutrophils (%) (Auto) 86.2 % 82.8 % (16.0-70.0) (16.0-70.0) Lymphocytes (%) (Auto) 4.8 % 6.0 % (9.0-44.0) (9.0-44.0) Monocytes (%) (Auto) 8.1 % (0.0-8.0) 8.0 % (0.0-8.0) Eosinophils (%) (Auto) 0.6 % (0.0-4.0) 2.8 % (0.0-4.0) Basophils (%) (Auto) 0.3 % (0.0-2.0) 0.4 % (0.0-2.0) Neutrophils # (Auto) 17.2 TH/MM3 14.1 TH/MM3 (1.8-7.7) (1.8-7.7) Lymphocytes # (Auto) 1.0 TH/MM3 1.0 TH/MM3 (1.0-4.8) (1.0-4.8) Monocytes # (Auto) 1.6 TH/MM3 1.4 TH/MM3 (0-0.9) (0-0.9) Eosinophils # (Auto) 0.1 TH/MM3 0.5 TH/MM3 (0-0.4) (0-0.4) Basophils # (Auto) 0.1 TH/MM3 0.1 TH/MM3 (0-0.2) (0-0.2) CBC Comment AUTO DIFF AUTO DIFF Differential Total Cells 100 100 Counted Neutrophils % (Manual) 79 % (16-70) 65 % (16-70) Band Neutrophils % 8 % (0-6) 23 % (0-6) Lymphocytes % 4 % (9-44) 4 % (9-44) Monocytes % 6 % (0-8) 5 % (0-8) Eosinophils % 2 % (0-4) 1 % (0-4) Neutrophils # (Manual) 17.6 TH/MM3 15.4 TH/MM3 (1.8-7.7) (1.8-7.7) Myelocytes 1 % (0-0) Nucleated Red Blood Cells 2 /100 WBC (0-0) Differential Comment FINAL DIFF FINAL DIFF MANUAL MANUAL Platelet Estimate NORMAL NORMAL (NORMAL) (NORMAL) Platelet Morphology Comment NORMAL NORMAL (NORMAL) (NORMAL) Red Cell Morphology Comment NORMAL (NORMAL) Potassium Level 3.8 MEQ/L 3.3 MEQ/L (3.5-5.1) (3.5-5.1) Chloride Level 116 MEQ/L 115 MEQ/L (98-107) (98-107) Carbon Dioxide Level 25.0 MEQ/L 25.3 MEQ/L (21.0-32.0) (21.0-32.0) Anion Gap 9 MEQ/L (5-15) 10 MEQ/L (5-15) Blood Urea Nitrogen 20 MG/DL (7-18) 19 MG/DL (7-18) Creatinine 0.54 MG/DL 0.48 MG/DL (0.60-1.30) (0.60-1.30) Estimat Glomerular Filtration 155 ML/MIN 177 ML/MIN Rate (>89) (>89) Random Glucose 200 MG/DL 130 MG/DL (74-106) (74-106) Calcium Level 7.4 MG/DL 7.6 MG/DL (8.5-10.1) (8.5-10.1) Protein Corrected Calcium 8.2 MG/DL (8.5-10.1) Phosphorus Level 2.5 MG/DL 2.1 MG/DL (2.5-4.9) (2.5-4.9) Magnesium Level 2.6 MG/DL 2.5 MG/DL (1.5-2.5) (1.5-2.5) Total Bilirubin 1.2 MG/DL 1.2 MG/DL (0.2-1.0) (0.2-1.0) Aspartate Amino Transf 53 U/L (15-37) 83 U/L (15-37) (AST/SGOT) Alanine Aminotransferase 41 U/L (12-78) 71 U/L (12-78) (ALT/SGPT) Alkaline Phosphatase 147 U/L 226 U/L (45-117) (45-117) Total Protein 5.6 GM/DL 5.9 GM/DL (6.4-8.2) (6.4-8.2) Albumin 1.4 GM/DL 1.3 GM/DL (3.4-5.0) (3.4-5.0) Phenytoin (Dilantin) Level 17.3 MCG/ML (10.0-20.0) Metamyelocytes 2 % (0-1) Keratocytes OCC (NORMAL) Blood Gas Puncture Site ART LINE Blood Gas Patient Temperature 98.6 Blood Gas HCO3 26 mmol/L (22-26) Blood Gas Base Excess 2.6 mmol/L (-2-2) Blood Gas Oxygen Saturation 91 % (90-100) Arterial Blood pH 7.46 (7.380-7.420) Arterial Blood Partial 37 mmHg (38-42) Pressure CO2 Arterial Blood Partial 65 mmHg Pressure O2 (61-120) Arterial Blood Oxygen Content 11.5 Vol % (12.0-20.0) Arterial Blood 1.3 % (0-4) Carboxyhemoglobin Arterial Blood Methemoglobin 0.8 % (0-2) Blood Gas Hemoglobin 9.0 G/DL (12.0-16.0) Oxygen Delivery Device VENTILATOR Blood Gas Ventilator Setting PRVC/AC Blood Gas Inspired Oxygen 60 % Test 09/06/16 10:00 Vancomycin Level Trough 5.3 MCG/ML (5.0-10.0) (Corrine Arteaga) Result Diagram: 09/06/1615 09/06/16514 Microbiology Microbiology Date/Time Procedure Status Source Growth 09/04/16 09:20 Gram Stain - Final Complete Sputum Endotracheal 09/04/16 09:20 Sputum Culture - Final Complete Staphylococcus Aureus Klebsiella Pneumoniae Enterobacter Aerogenes 09/04/16 11:45 Aerobic Blood Culture - Preliminary Resulted Blood Peripheral Staph Sp Coagulase Negative 09/04/16 11:45 Anaerobic Blood Culture - Preliminary Resulted Blood Peripheral NO GROWTH IN 2 DAYS 09/04/16 11:55 Aerobic Blood Culture - Preliminary Resulted Blood Peripheral Staph Sp Coagulase Negative 09/04/16 11:55 Anaerobic Blood Culture - Preliminary Resulted Blood Peripheral NO GROWTH IN 2 DAYS 09/04/16 16:40 Gram Stain - Final Complete Bronchial Washings Left Lower Lobe 09/04/16 16:40 Bronchial Culture - Final Complete Staphylococcus Aureus Klebsiella Pneumoniae Enterobacter Aerogenes 09/04/16 16:40 Acid Fast Stain - Final Resulted Bronchial Washings Left Lower Lobe NO ACID FAST BACILLI SEEN 09/04/16 16:40 Mycobacterial Culture Resulted Bronchial Washings Left Lower Lobe Pending 09/04/16 16:40 Fungal Smear - Final Resulted Bronchial Washings Left Lower Lobe NO FUNGAL ELEMENTS SEEN. 09/04/16 16:40 Fungal Culture Resulted Bronchial Washings Left Lower Lobe Pending Imaging Last Impressions Chest X-Ray 09/06/16 0600 Signed Impressions: Service Date/Time: Tuesday, September 06, 2016 04:25 - CONCLUSION: Worsening airspace process bilaterally. Marquis Almodovar MD Lower Extremity Ultrasound 09/04/16 0000 Signed Impressions: Service Date/Time: Sunday, September 04, 2016 16:01 - CONCLUSION: No DVT of either lower extremity. Gonzales Harper MD Abdomen Ultrasound 09/04/16 0000 Signed Impressions: Service Date/Time: Sunday, September 04, 2016 15:40 - CONCLUSION: 1. Minimal amount of abdominal fluid about the liver and spleen. Small bilateral pleural effusions. 2. Sludge within the gallbladder. No echogenic stones seen. 3. The superior/inferior dimension of the liver is above normal limits, but there is not a hepatomegaly due to Alethea's lobe configuration. Josh Hobbs MD Head CT 09/01/16 1644 Signed Impressions: Service Date/Time: August 17:23 - CONCLUSION: 1. Stable exam with areas of subdural, intraparenchymal, and subarachnoid hemorrhage. No new sites of hemorrhage. 2. Slight reduction in the midline shift. 3. Stable craniotomy and surgical drains. Josh Marina Jr., MD Pelvis X-Ray 08/28/16 1039 Signed Impressions: Service Date/Time: Sunday, August 28, 2016 10:31 - CONCLUSION: Unremarkable examination of the pelvis. Dakota Pack MD Maxillofacial CT 08/28/16 1039 Signed Impressions: Service Date/Time: Sunday, August 28, 2016 11:00 - CONCLUSION: No evidence of fracture. Adolfo Yusuf MD Cervical Spine CT 08/28/16 1039 Signed Impressions: Service Date/Time: Sunday, August 28, 2016 11:00 - CONCLUSION: No evidence of fracture. Multilevel degenerative findings. Adolfo Yusuf MD Abdomen/Pelvis CT 08/28/16 1039 Signed Impressions: Service Date/Time: Sunday, August 28, 2016 11:06 - CONCLUSION: No acute findings in the abdomen and pelvis. Adolfo Yusuf MD Chest CT 08/28/16 0000 Signed Impressions: Service Date/Time: Sunday, August 28, 2016 11:06 - CONCLUSION: Dependent opacity in the lungs. No other acute findings in the chest. Adolfo Yusuf MD Procedures 08/28 Right frontotemporal parietal decompressive craniotomy with placement ICP monitor (Corrine Arteaga) Assessment and Plan Disease Oriented Problem List: (1) Subdural hematoma Comment: s/p right frontotemporal parietal decompressive craniotomy 08/28 (2) Respiratory failure (3) Hypernatremia (4) Seizure (5) Serratia marcescens infection Comment: pneumonia Symptom Scale: (1) Dysphagia (2) Encephalopathy (3) Seizure Pertinent Non-Medical Issues Psychosocial:Welsh. to( second) since 2007. 2 adult children ( from 2st marriage) . daughter lives in [place], is ICU nurse. Son lives in [place], is a [employer] guard marine pilot. Pt is retired from the [employer], retired early in the past couple years to enjoy and active snf. Pt just bought a home/ moved to [facility] 2 mos ago. Traveled to this area to [place]. 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 defers to pt 2 adult children (from prior marriage). Son wants daughter, who is an RN to act as primary proxy. They are all working together on decisions, supporting one another. Ethical issues impacting care: Important Contacts daughter Rita (pronounced "Ween") Ron [phone] serving as healthcare proxy ([place]) - ([facility]) Son- Ashli Velasquez ([place]) . Prognosis This patient was admitted 08/28 with a severe traumatic brain injury requiring emergent evacuation by neurosurgery as a life-saving measure. He has remained in critical condition on mechanical vent. . Code Status: Full Code Plan * Legal decision maker: per [place] statutes would be legal decision maker ( no living will or advanced directive). defers to pt 2 adult children (from prior marriage). Son wants daughter, who is an RN to act as primary proxy. They are all working together on decisions, supporting one another. * Goals:[ dtr is a PLANT OPERATOR]. met w family dtr 09/06/16: She appears to have a very good understanding of pts severe injury, assessments, ongoing tx and tx options. Daughter shares that though is is the primary proxy they are all working together as family to honor pts wishes. Family is very hopeful for some recovery, dtr is concerned regarding current neuro assessments/prognosis. She shares that pt is usually a very physically active, independent, vibrant individual with a strong sense of humor. He loves to mountain bike, and was looking forward to being active with his several young grandchildren. She is certain that he would not want to live in a nursing facility and would not be willing to undergo months of rehab if he would not regain most or "80% " of his prior function. He would not want to be dependent for ADLs, or unable to walk and enjoy the outdoors. She will await further update from neuro in the coming days RE repeat CT brain. She does not think pt would want trach /peg if he would not make a near full recovery. They would proceed only if there was a very high chance of patient regaining moderate amount of independence and not require shelter care. She is going to talk more w family RE code status. No changes at this time. Goals currently aggressive, though open to ongoing discussions as condition evolves. They would consider transition to comfort focus if no neuro improvement or worsening in the coming days. Daughter will be back in town 09/12/16 and would like to wait to decide RE trach/PEG until that time. 09/06/16: Patient brother, daughter endorse patient would not want to continue with artificial measures if you would not make a near full recovery. is in agreement with this. They would like to continue current treatments and aggressive measures including full CODE STATUS until additional family is able to arrive on Monday. His adult children wish to spend Monday with him for Father's Day, probable transition to comfort focus on Monday09/12/16. They do NOT feel pt would want to proceed w trach, PEG. * CODE STATUS:full * SYMPTOMS: --encephalopathy- 2/2 severe TBI, SDH s/p emergent crani. Poor neuro response thus far. EEG severe slowing, + seizures, requiring multiple antiseizure medications. + gag, no withdrawal. --dyspnea- intubated emergently for airway protection 2/2 severe TBI -- seizures - managed per neurology, had recurrent sz despite keppra, Keppra increased, dilantin added, Vimpat added -- pain- no chronic pain syndromes. potential sources include bedbound status , recent invasive procedures / no sx pain currently / will cont to evaluate * Palliative care will continue to follow during hospital course as condition evolves, to assist patient/decision-maker with understanding of medical conditions, weighing benefits/burdens of treatment options, for clarification of goals of treatment. Additionally will assist with any symptoms of palliative concern . (Corrine Arteaga) Attestation To help prompt me to consider important information that might be impacting today's encounter and assessment, information from prior notes written by myself or my colleagues may have been "brought forward" into today's note. My signature on this note, however, is an attestation that I personally performed the exam, history, and/or decision-making noted today, and, unless otherwise indicated, the interactions with patient, family, and staff as well as the review of records all occurred today. I also attest that the listed assessment and stated plan reflect my best clinical judgment today based on the combination of historical information, prior notes, and today's exam/ interactions. When time spent is documented, it refers only to time spent today by the signer, or if indicated, combined time spent today by collaborating physician/nurse practitioner. (Corrine Arteaga) Collaborating MD Comments Discussed with MARTINEZ, agree with assessment and plan Attestation To help prompt me to consider important information that might be impacting today's encounter and assessment, information from prior notes written by myself or my colleagues may have been "brought forward" into today's note. My signature on this note, however, is an attestation that I personally performed the exam, history, and/or decision-making noted today, and, unless otherwise indicated, the interactions with patient, family, and staff as well as the review of records all occurred today. I also attest that the listed assessment and stated plan reflect my best clinical judgment today based on the combination of historical information, prior notes, and today's exam/ interactions. When time spent is documented, it refers only to time spent today by the signer, or if indicated, combined time spent today by collaborating physician/nurse practitioner. (Boom Allen MD) Corrine Arteaga Sep 06, 2016 16:25 Boom Allen MD Sep 07, 2016 13:59
[2016-09-06] MEDS: MIDAZOLAM 100 MG/ML INJ 100 ML IV SCH (18:55)
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
[2016-09-06] MEDS: VANCOMYCIN INJ 1,250 MG in SODIUM CHLOR 0.9% 250 ML INJ 250 ML IV SCH (22:37)
[2016-09-07] VITALS (17 sets, daily range): BP systolic 135–167; BP diastolic 61–95; PULSE 86–105; RESP 20–30; TEMP 97.6–99.5; O2SAT 95–100
[2016-09-07] MEDS: ARTIFICIAL TEARS OPTH SOLN 15 ML BTL EACH EYE SCH ×3 (01:26→18:00)
[2016-09-07] MEDS: CEFEPIME INJ 2,000 MG in SODIUM CHLORIDE 0.9% INJ 100 ML IV SCH ×3 (01:26→18:00)
[2016-09-07] MEDS: CHLORHEXIDINE GLUCONATE 2 % 1 PACK (2 CLOTHS) TOP SCH (01:26)
[2016-09-07] MEDS: PROPOFOL 1000 MG/100 ML INJ 100 ML IV SCH ×5 (02:00→23:25)
[2016-09-07] MEDS: RESP: SODIUM CHLORIDE 3% 4 ML NEB NEB SCH (03:42)
[2016-09-07] MEDS: RESP: ALBUTEROL 2.5 MG/IPRATROPIUM 0.5 MG NEB (SCH) NEB ×4 (03:42→19:33)
[2016-09-07 04:39] LABS: BLOOD GAS BASE EXCESS 2.1 mmol/L (-2-2); BLOOD GAS CARBOXYHEMOGLOBIN 1.2 % (0-4); BLOOD GAS HCO3 26 mmol/L (22-26); BLOOD GAS METHEMOGLOBIN 0.8 % (0-2); BLOOD GAS O2 HGB SATURATION 94 % (90-100); BLOOD GAS OXYGEN CONTENT 12.6 Vol % (12.0-20.0); BLOOD GAS PCO2 39 mmHg (38-42); BLOOD GAS PO2 84 mmHg (61-120); BLOOD GAS TOTAL HGB 9.4 G/DL (12.0-16.0); TEMP CORR TO 98.6
[2016-09-07 04:40] LABS: CRITICAL VALUE NO; DRAW SITE ART LINE; FIO2 50 %; OXYGEN DEVICE VENTILATOR; VENT SETTINGS PRVC/AC
[2016-09-07 04:41] LABS: STAT NO
[2016-09-07 05:14] LABS: AUTOMATED NEUTROPHIL # 12.7 TH/MM3 (1.8-7.7); BASOPHIL # 0.1 TH/MM3 (0-0.2); BASOPHIL % 0.4 % (0.0-2.0); EOSINOPHIL # 0.5 TH/MM3 (0-0.4); EOSINOPHIL % 3.3 % (0.0-4.0); HEMATOCRIT 26.2 % (39.0-51.0); LYMPH % 8.2 % (9.0-44.0); LYMPHOCYTE # 1.3 TH/MM3 (1.0-4.8); MEAN CELL VOLUME 84.6 FL (80.0-100.0); MEAN CORPUSCULAR HEMOGLOBIN 27.8 PG (27.0-34.0); MEAN CORPUSCULAR HGB CONC 32.9 % (32.0-36.0); MONO % 6.1 % (0.0-8.0); PLATELET COUNT 283 TH/MM3 (150-450); RED CELL DISTRIBUTION WIDTH 14.6 % (11.6-17.2); WHITE BLOOD COUNT 15.4 TH/MM3 (4.0-11.0)
[2016-09-07 05:15] LABS: HEMO FLAGS AUTO DIFF
--- NOTE | 2016-09-07 05:27 | RADRPT ---
EXAM DATE/TIME: 09/07/2016 04:35 [facility] COMPARISON: CHEST SINGLE AP, September 06, 2016, 4:25. INDICATIONS : Short of breath. MEDICAL HISTORY : None. SURGICAL HISTORY : CABG. ENCOUNTER: Subsequent ACUITY: 3 days PAIN SCORE: 0/10 LOCATION: Bilateral chest FINDINGS: ET tube is present with tip slightly withdrawn and above the thoracic inlet needs to be advanced. Lef t IJ line is present with tip overlapping the expected region of the SVC. NG tube is present with tip in the stomach. There is worsening air space process in the right lung and dense airspace opacity in volving most of the left lung has not changed. CONCLUSION: ET tube needs to be advanced and there is worsening air space process in the right lung, otherwise no t significantly changed. Marquis Almodovar MD on September 07, 2016 at 5:24 Board Certified Radiologist. This report was verified electronically.
[2016-09-07 05:37] LABS: ALT (GPT) 82 U/L (12-78); ANION GAP 6 MEQ/L (5-15); AST (GOT) 72 U/L (15-37); BICARBONATE 29.1 MEQ/L (21.0-32.0); BLOOD UREA NITROGEN 18 MG/DL (7-18); CHLORIDE 114 MEQ/L (98-107); GLOMERULAR FILTRATION RATE 239 ML/MIN (>89); MAGNESIUM 2.4 MG/DL (1.5-2.5); POTASSIUM 3.3 MEQ/L (3.5-5.1); SODIUM (NA) 149 MEQ/L (136-145)
[2016-09-07 05:41] LABS: ALKALINE PHOSPHATASE 291 U/L (45-117); TOTAL BILIRUBIN ADULT 1.5 MG/DL (0.2-1.0)
[2016-09-07] MEDS: guaiFENesin SOLUTION 200 MG/10 ML CUP DOBHOFF SCH (05:45)
[2016-09-07] MEDS: METOCLOPRAMIDE HCL 10 MG/2 ML VIAL IV PUSH SCH ×3 (05:46→22:44)
[2016-09-07 05:49] LABS: BANDS 3 % (0-6); CORRECTED NUCLEATED RBC 1 /100 WBC (0-0); EOSINOPHILS 3 % (0-4); METAMYELOCYTES 5 % (0-1); NEUTROPHIL # MANUAL DIFF 13.9 TH/MM3 (1.8-7.7); POLYS (SEG NEUTROPHILS) 82 % (16-70); WBC DIFF SAMPLE 100
[2016-09-07] MEDS: LACOSAMIDE INJ 50 MG in SODIUM CHLORIDE 0.9% INJ 100 ML IV SCH ×3 (05:49→22:43)
[2016-09-07 05:51] LABS: PLATELET ESTIMATE SMEAR NORMAL (NORMAL); PLATELET MORPHOLOGY NORMAL (NORMAL); SCAN/DIFF FINAL DIFF MANUAL; SLIDE REVIEW N
[2016-09-07] MEDS: MIDAZOLAM 100 MG/ML INJ 100 ML IV SCH ×2 (07:32→23:25)
[2016-09-07] MEDS: fentaNYL DRIP 250 ML IV SCH (07:32)
[2016-09-07] MEDS: CHLORHEXIDINE 0.12% (ORAL KIT) 15 ML CUP MT SCH ×2 (08:00→23:26)
[2016-09-07] MEDS: ICU - POTASSIUM CHLORIDE/AQUEOUS SOLN 40 MEQ/100 ML IVPB IV PRN (08:27)
[2016-09-07] MEDS: levETIRAcetam INJ 1,500 MG in SODIUM CHLORIDE 0.9% INJ 100 ML IV SCH ×2 (08:28→22:43)
[2016-09-07] MEDS: PANTOPRAZOLE SODIUM 40 MG VIAL IVP SCH (08:28)
[2016-09-07] MEDS: VANCOMYCIN INJ 1,250 MG in SODIUM CHLOR 0.9% 250 ML INJ 250 ML IV SCH ×2 (08:28→22:42)
[2016-09-07] MEDS: DOCUSATE SODIUM 50 MG/SENNA 8.6 MG TAB PO SCH ×2 (08:28→22:45)
[2016-09-07] MEDS: LACTULOSE SYRUP 20 GM/30 ML CUP PO SCH (08:28)
[2016-09-07] MEDS: SODIUM CHLORIDE 0.9% FLUSH 10 ML FLUSH IVF SCH (08:29)
[2016-09-07] MEDS: 3% SALINE INJ 500 ML IV SCH (08:29)
[2016-09-07] MEDS: SODIUM CHLORIDE 0.9% FLUSH 5 ML FLUSH IVF SCH ×2 (08:29→21:00)
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
--- NOTE | 2016-09-07 16:25 | HHI.HCPN ---
Reason for visit a. To assist with evaluation and management of symptoms including: dyspnea, encephalopathy, seizures b. To assist medical decision maker(s) with: better understanding of current medical conditions; weighing benefits/burdens of medical treatment options; making medical treatment decisions. Subjective/Interval History Patient seen and examined in ICU. No family at bedside. Present during visit nurse Ophelia and CHIKA Pavon who is removing MICHEAL drains at the time of my visit. Conversation regarding ongoing seizure activity requiring increase in Versed drip. Discussed with Dr. Braden and Dr. Jain, all providers understand family desire continued aggressive care for now. They do not feel patient would want trach/PEG tube. Anticipate possible transition to comfort focused care early next week (after Father's Day) if no clinical improvement. Remains sedated on mech vent (FiO2 50%). Patient has not been tolerating attempt to wean sedation. On Diprivan 50mcg, Fentanyl 250mcg, Versed 6mg drips. Patient does not respond to voice. Pupils nonreactive. Tmax 99.9, vital signs stable. WBC remains elevated 15.4, hemoglobin 8.6, platelets 283. Creatinine remains normal 0.37. Total bilirubin increased 1.5 AST 72, ALT 82, alkaline phosphatase 291, total protein 5.7, albumin 1.3. Tolerating tube feeding. To my exam nonresponsive. + gag when RN suctioned. + spont respirations over vent rate. No withdrawal to pain stimuli. D/w critical care, RN. Family/friend interactions Met with patient brother, mother, [id number], and other family members in [facility]. Medical update provided. Family again indicates patient would not want tracheostomy/PEG tube placement. They desire continue aggressive care the arrival of additional family members and wanting to spend Father's Day with the patient. If no signs of clinical improvement anticipate transition to comfort focused care and withdrawal of life support early next week. Palliative care will continue to follow. . Advance Directives Living Will: Never completed Health Care Surrogate: Never completed Durable Power of Contemporary Or Modern Dancer: Never completed Advance Directive Specifics Significant change in goals: FULL CODE. Continue aggressive care for now, anticipate transition to comfort focused care/withdrawal of life support early next week if no signs of clinical improvement. Family hopes to spend Father's Day with the patient. . Objective Vital Signs Date Time Temp Pulse Resp B/P Pulse Ox O2 Delivery O2 Flow Rate FiO2 09/07/16 16:00 86 09/07/16 14:00 99 09/07/16 12:52 100 50 09/07/16 12:00 98.7 101 20 135/61 97 09/07/16 12:00 50 09/07/16 12:00 90 09/07/16 10:00 88 09/07/16 08:00 96 09/07/16 08:00 99.3 96 22 154/64 97 09/07/16 08:00 50 09/07/16 08:00 95 50 09/07/16 07:00 97 Mechanical Ventilator 50 09/07/16 06:00 88 09/07/16 04:13 97 50 09/07/16 04:00 50 09/07/16 04:00 98.2 101 30 149/95 97 09/07/16 04:00 101 09/07/16 02:00 90 09/07/16 01:19 97 50 09/07/16 00:00 50 09/07/16 00:00 99.5 97 28 157/68 97 09/07/16 00:00 97 09/06/16 22:00 87 09/06/16 20:03 95 50 09/06/16 20:00 102 09/06/16 20:00 97.6 102 18 156/85 95 09/06/16 20:00 50 09/06/16 19:00 95 Mechanical Ventilator 50 09/06/16 18:00 100 09/06/16 16:27 100 50 Intake & Output 09/07/16 09/07/16 07:00 19:00 Intake Total 2650 ml 1264 ml Output Total 2060.0 ml 805 ml Balance 590.0 ml 459 ml IV Total 1710 ml 934 ml Tube Feeding 940 ml 330 ml Output Urine Total 1900 ml 750 ml Tube Feeding Residual Discard 0 ml 0 ml Drainage Total 160 ml 55 ml # Bowel Movements 4 1 Physical Exam CONSTITUTIONAL/GENERAL: This is an adequately nourished patient, in no apparent distress, nonresponsive on mech vent. TUBES/LINES/DRAINS:central line, ETT, OGT, Early, SCDs, soft restraints BUE, arterial line HEAD: healing incision rt head, JPs x2 (being removed at the time of my visit). sommer intact CARDIOVASCULAR: Regular rate and rhythm , no murmurs.+ generalized edema to all extremities. RESPIRATORY/CHEST: Symmetric, unlabored respirations via mech vent. + Spontaneous respirations over vent rate. Crackles noted bilaterally. GASTROINTESTINAL: Abdomen soft, flat, unable to determine tenderness, mildly distended. Hypoactive bowel sounds. GENITOURINARY: Without palpable bladder distension. Early catheter in place. NEUROLOGICAL: sedated/nonresponsive. no withdrawal to pain stimuli. No eye opening. pupils nonreactive. PSYCHIATRIC: sedated/limited assess due to condition. . Diagnostic Tests Laboratory Laboratory Tests Test 09/04/16 09/04/16 09/04/16 09/05/16 16:40 16:50 17:42 00:00 Bronchoalveolar Lavage WBC 2150 /MM3 Bronchoalveolar Lavage RBC 2360 /MM3 Bronchoalveolar Lavage 97 % Neutrophils Bronchoalveolar Lavage 3 % Lymphocytes Lavage Fluid Total Volume 20.0 ML Lavage Fluid Total WBC Count 43.000 MILLION (4.700-7.100) Sodium Level 153 MEQ/L 152 MEQ/L (136-145) (136-145) Serum Osmolality 320 MOSM/KG 319 MOSM/KG (275-295) (275-295) Blood Gas Puncture Site ART LINE Blood Gas Patient Temperature 98.6 Blood Gas HCO3 24 mmol/L (22-26) Blood Gas Base Excess -0.2 mmol/L (-2-2) Blood Gas Oxygen Saturation 94 % (90-100) Arterial Blood pH 7.41 (7.380-7.420) Arterial Blood Partial 38 mmHg (38-42) Pressure CO2 Arterial Blood Partial 79 mmHg Pressure O2 (61-120) Arterial Blood Oxygen Content 12.3 Vol % (12.0-20.0) Arterial Blood 1.0 % (0-4) Carboxyhemoglobin Arterial Blood Methemoglobin 0.5 % (0-2) Blood Gas Hemoglobin 9.2 G/DL (12.0-16.0) Oxygen Delivery Device VENTILATOR Blood Gas Ventilator Setting [facility]/AC 18/500 Blood Gas Inspired Oxygen 40 % Test 09/05/16 09/06/16 09/06/16 09/06/16 05:45 05:15 05:32 10:00 White Blood Count 20.0 TH/MM3 17.1 TH/MM3 (4.0-11.0) (4.0-11.0) Red Blood Count 2.97 MIL/MM3 3.11 MIL/MM3 (4.50-5.90) (4.50-5.90) Hemoglobin 8.4 GM/DL 8.7 GM/DL (13.0-17.0) (13.0-17.0) Hematocrit 25.4 % 26.6 % (39.0-51.0) (39.0-51.0) Mean Corpuscular Volume 85.7 FL 85.4 FL (80.0-100.0) (80.0-100.0) Mean Corpuscular Hemoglobin 28.2 PG 27.8 PG (27.0-34.0) (27.0-34.0) Mean Corpuscular Hemoglobin 32.9 % 32.6 % Concent (32.0-36.0) (32.0-36.0) Red Cell Distribution Width 14.6 % 14.5 % (11.6-17.2) (11.6-17.2) Platelet Count 223 TH/MM3 257 TH/MM3 (150-450) (150-450) Mean Platelet Volume 9.0 FL 8.9 FL (7.0-11.0) (7.0-11.0) Neutrophils (%) (Auto) 86.2 % 82.8 % (16.0-70.0) (16.0-70.0) Lymphocytes (%) (Auto) 4.8 % 6.0 % (9.0-44.0) (9.0-44.0) Monocytes (%) (Auto) 8.1 % (0.0-8.0) 8.0 % (0.0-8.0) Eosinophils (%) (Auto) 0.6 % (0.0-4.0) 2.8 % (0.0-4.0) Basophils (%) (Auto) 0.3 % (0.0-2.0) 0.4 % (0.0-2.0) Neutrophils # (Auto) 17.2 TH/MM3 14.1 TH/MM3 (1.8-7.7) (1.8-7.7) Lymphocytes # (Auto) 1.0 TH/MM3 1.0 TH/MM3 (1.0-4.8) (1.0-4.8) Monocytes # (Auto) 1.6 TH/MM3 1.4 TH/MM3 (0-0.9) (0-0.9) Eosinophils # (Auto) 0.1 TH/MM3 0.5 TH/MM3 (0-0.4) (0-0.4) Basophils # (Auto) 0.1 TH/MM3 0.1 TH/MM3 (0-0.2) (0-0.2) CBC Comment AUTO DIFF AUTO DIFF Differential Total Cells 100 100 Counted Neutrophils % (Manual) 79 % (16-70) 65 % (16-70) Band Neutrophils % 8 % (0-6) 23 % (0-6) Lymphocytes % 4 % (9-44) 4 % (9-44) Monocytes % 6 % (0-8) 5 % (0-8) Eosinophils % 2 % (0-4) 1 % (0-4) Neutrophils # (Manual) 17.6 TH/MM3 15.4 TH/MM3 (1.8-7.7) (1.8-7.7) Myelocytes 1 % (0-0) Nucleated Red Blood Cells 2 /100 WBC (0-0) Differential Comment FINAL DIFF FINAL DIFF MANUAL MANUAL Platelet Estimate NORMAL NORMAL (NORMAL) (NORMAL) Platelet Morphology Comment NORMAL NORMAL (NORMAL) (NORMAL) Red Cell Morphology Comment NORMAL (NORMAL) Sodium Level 150 MEQ/L 150 MEQ/L (136-145) (136-145) Potassium Level 3.8 MEQ/L 3.3 MEQ/L (3.5-5.1) (3.5-5.1) Chloride Level 116 MEQ/L 115 MEQ/L (98-107) (98-107) Carbon Dioxide Level 25.0 MEQ/L 25.3 MEQ/L (21.0-32.0) (21.0-32.0) Anion Gap 9 MEQ/L (5-15) 10 MEQ/L (5-15) Blood Urea Nitrogen 20 MG/DL (7-18) 19 MG/DL (7-18) Creatinine 0.54 MG/DL 0.48 MG/DL (0.60-1.30) (0.60-1.30) Estimat Glomerular Filtration 155 ML/MIN 177 ML/MIN Rate (>89) (>89) Random Glucose 200 MG/DL 130 MG/DL (74-106) (74-106) Serum Osmolality 322 MOSM/KG (275-295) Calcium Level 7.4 MG/DL 7.6 MG/DL (8.5-10.1) (8.5-10.1) Protein Corrected Calcium 8.2 MG/DL (8.5-10.1) Phosphorus Level 2.5 MG/DL 2.1 MG/DL (2.5-4.9) (2.5-4.9) Magnesium Level 2.6 MG/DL 2.5 MG/DL (1.5-2.5) (1.5-2.5) Total Bilirubin 1.2 MG/DL 1.2 MG/DL (0.2-1.0) (0.2-1.0) Aspartate Amino Transf 53 U/L (15-37) 83 U/L (15-37) (AST/SGOT) Alanine Aminotransferase 41 U/L (12-78) 71 U/L (12-78) (ALT/SGPT) Alkaline Phosphatase 147 U/L 226 U/L (45-117) (45-117) Total Protein 5.6 GM/DL 5.9 GM/DL (6.4-8.2) (6.4-8.2) Albumin 1.4 GM/DL 1.3 GM/DL (3.4-5.0) (3.4-5.0) Phenytoin (Dilantin) Level 17.3 MCG/ML (10.0-20.0) Metamyelocytes 2 % (0-1) Keratocytes OCC (NORMAL) Blood Gas Puncture Site ART LINE Blood Gas Patient Temperature 98.6 Blood Gas HCO3 26 mmol/L (22-26) Blood Gas Base Excess 2.6 mmol/L (-2-2) Blood Gas Oxygen Saturation 91 % (90-100) Arterial Blood pH 7.46 (7.380-7.420) Arterial Blood Partial 37 mmHg (38-42) Pressure CO2 Arterial Blood Partial 65 mmHg Pressure O2 (61-120) Arterial Blood Oxygen Content 11.5 Vol % (12.0-20.0) Arterial Blood 1.3 % (0-4) Carboxyhemoglobin Arterial Blood Methemoglobin 0.8 % (0-2) Blood Gas Hemoglobin 9.0 G/DL (12.0-16.0) Oxygen Delivery Device VENTILATOR Blood Gas Ventilator Setting PRVC/AC Blood Gas Inspired Oxygen 60 % Vancomycin Level Trough 5.3 MCG/ML (5.0-10.0) Test 09/07/16 09/07/16 04:28 04:55 Blood Gas Puncture Site ART LINE Blood Gas Patient Temperature 98.6 Blood Gas HCO3 26 mmol/L (22-26) Blood Gas Base Excess 2.1 mmol/L (-2-2) Blood Gas Oxygen Saturation 94 % (90-100) Arterial Blood pH 7.44 (7.380-7.420) Arterial Blood Partial 39 mmHg (38-42) Pressure CO2 Arterial Blood Partial 84 mmHg Pressure O2 (61-120) Arterial Blood Oxygen Content 12.6 Vol % (12.0-20.0) Arterial Blood 1.2 % (0-4) Carboxyhemoglobin Arterial Blood Methemoglobin 0.8 % (0-2) Blood Gas Hemoglobin 9.4 G/DL (12.0-16.0) Oxygen Delivery Device VENTILATOR Blood Gas Ventilator Setting PRVC/AC Blood Gas Inspired Oxygen 50 % White Blood Count 15.4 TH/MM3 (4.0-11.0) Red Blood Count 3.10 MIL/MM3 (4.50-5.90) Hemoglobin 8.6 GM/DL (13.0-17.0) Hematocrit 26.2 % (39.0-51.0) Mean Corpuscular Volume 84.6 FL (80.0-100.0) Mean Corpuscular Hemoglobin 27.8 PG (27.0-34.0) Mean Corpuscular Hemoglobin 32.9 % Concent (32.0-36.0) Red Cell Distribution Width 14.6 % (11.6-17.2) Platelet Count 283 TH/MM3 (150-450) Mean Platelet Volume 8.8 FL (7.0-11.0) Neutrophils (%) (Auto) 82.0 % (16.0-70.0) Lymphocytes (%) (Auto) 8.2 % (9.0-44.0) Monocytes (%) (Auto) 6.1 % (0.0-8.0) Eosinophils (%) (Auto) 3.3 % (0.0-4.0) Basophils (%) (Auto) 0.4 % (0.0-2.0) Neutrophils # (Auto) 12.7 TH/MM3 (1.8-7.7) Lymphocytes # (Auto) 1.3 TH/MM3 (1.0-4.8) Monocytes # (Auto) 0.9 TH/MM3 (0-0.9) Eosinophils # (Auto) 0.5 TH/MM3 (0-0.4) Basophils # (Auto) 0.1 TH/MM3 (0-0.2) CBC Comment AUTO DIFF Differential Total Cells 100 Counted Neutrophils % (Manual) 82 % (16-70) Band Neutrophils % 3 % (0-6) Lymphocytes % 7 % (9-44) Eosinophils % 3 % (0-4) Neutrophils # (Manual) 13.9 TH/MM3 (1.8-7.7) Metamyelocytes 5 % (0-1) Nucleated Red Blood Cells 1 /100 WBC (0-0) Differential Comment FINAL DIFF MANUAL Platelet Estimate NORMAL (NORMAL) Platelet Morphology Comment NORMAL (NORMAL) Sodium Level 149 MEQ/L (136-145) Potassium Level 3.3 MEQ/L (3.5-5.1) Chloride Level 114 MEQ/L (98-107) Carbon Dioxide Level 29.1 MEQ/L (21.0-32.0) Anion Gap 6 MEQ/L (5-15) Blood Urea Nitrogen 18 MG/DL (7-18) Creatinine 0.37 MG/DL (0.60-1.30) Estimat Glomerular Filtration 239 ML/MIN Rate (>89) Random Glucose 137 MG/DL (74-106) Calcium Level 7.7 MG/DL (8.5-10.1) Phosphorus Level 2.6 MG/DL (2.5-4.9) Magnesium Level 2.4 MG/DL (1.5-2.5) Total Bilirubin 1.5 MG/DL (0.2-1.0) Aspartate Amino Transf 72 U/L (15-37) (AST/SGOT) Alanine Aminotransferase 82 U/L (12-78) (ALT/SGPT) Alkaline Phosphatase 291 U/L (45-117) Total Protein 5.7 GM/DL (6.4-8.2) Albumin 1.3 GM/DL (3.4-5.0) Phenytoin (Dilantin) Level 3.2 MCG/ML (10.0-20.0) Result Diagram: 09/07/16 0455 09/07/16 0455 Microbiology Microbiology Date/Time Procedure Status Source Growth 09/04/16 16:40 Gram Stain - Final Complete Bronchial Washings Left Lower Lobe 09/04/16 16:40 Bronchial Culture - Final Complete Staphylococcus Aureus Klebsiella Pneumoniae Enterobacter Aerogenes 09/04/16 16:40 Acid Fast Stain - Final Resulted Bronchial Washings Left Lower Lobe NO ACID FAST BACILLI SEEN 09/04/16 16:40 Mycobacterial Culture Resulted Bronchial Washings Left Lower Lobe Pending 09/04/16 16:40 Fungal Smear - Final Resulted Bronchial Washings Left Lower Lobe NO FUNGAL ELEMENTS SEEN. 09/04/16 16:40 Fungal Culture Resulted Bronchial Washings Left Lower Lobe Pending Imaging Last Impressions Chest X-Ray 09/07/16 0600 Signed Impressions: Service Date/Time: Wednesday, September 07, 2016 04:35 - CONCLUSION: ET tube needs to be advanced and there is worsening air space process in the right lung, otherwise not significantly changed. Marquis Almodovar MD Head CT 09/06/16 0000 Signed Impressions: Service Date/Time: Tuesday, September 06, 2016 12:16 - CONCLUSION: 1. Stable 1.7 cm left frontal intraparenchymal hemorrhage, tiny areas of subarachnoid hemorrhage within the left high parietal region and right tentorial subdural hematoma. Minimal subdural hematoma is also noted within the right posterior high parietal region measuring 4 mm in thickness. 2. Minimal stable subfalcine herniation to the left measuring 3 mm. Ryley Zelaya MD Lower Extremity Ultrasound 09/04/16 0000 Signed Impressions: Service Date/Time: Sunday, September 04, 2016 16:01 - CONCLUSION: No DVT of either lower extremity. Gonzales Harper MD Abdomen Ultrasound 09/04/16 0000 Signed Impressions: Service Date/Time: Sunday, September 04, 2016 15:40 - CONCLUSION: 1. Minimal amount of abdominal fluid about the liver and spleen. Small bilateral pleural effusions. 2. Sludge within the gallbladder. No echogenic stones seen. 3. The superior/inferior dimension of the liver is above normal limits, but there is not a hepatomegaly due to Alethea's lobe configuration. Josh Hobbs MD Pelvis X-Ray 08/28/16 1039 Signed Impressions: Service Date/Time: Sunday, August 28, 2016 10:31 - CONCLUSION: Unremarkable examination of the pelvis. Dakota Pack MD Maxillofacial CT 08/28/16 1039 Signed Impressions: Service Date/Time: Sunday, August 28, 2016 11:00 - CONCLUSION: No evidence of fracture. Adolfo Yusuf MD Cervical Spine CT 08/28/16 1039 Signed Impressions: Service Date/Time: Sunday, August 28, 2016 11:00 - CONCLUSION: No evidence of fracture. Multilevel degenerative findings. Adolfo Yusuf MD Abdomen/Pelvis CT 08/28/16 1039 Signed Impressions: Service Date/Time: Sunday, August 28, 2016 11:06 - CONCLUSION: No acute findings in the abdomen and pelvis. Adolfo Yusuf MD Chest CT 08/28/16 0000 Signed Impressions: Service Date/Time: Sunday, August 28, 2016 11:06 - CONCLUSION: Dependent opacity in the lungs. No other acute findings in the chest. Adolfo Yusuf MD . Procedures 08/28 Right frontotemporal parietal decompressive craniotomy with placement ICP monitor Assessment and Plan Disease Oriented Problem List: (1) Subdural hematoma Comment: s/p right frontotemporal parietal decompressive craniotomy 08/28 (2) Respiratory failure (3) Hypernatremia (4) Seizure (5) Serratia marcescens infection Comment: pneumonia Symptom Scale: (1) Dysphagia 0-10 Scale: Unable to quantify (2) Encephalopathy 0-10 Scale: Unable to quantify (3) Seizure 0-10 Scale: Unable to quantify Pertinent Non-Medical Issues Psychosocial:Bel[place]ian. to( second) since 2007. 2 adult children ( from 2st marriage) . daughter lives in [place], is ICU nurse. Son lives in [place], is a [employer] sales representative [employer]. Pt is retired from the [place] [employer], retired early in the past couple years to enjoy and active chcf. Pt just bought a home/ moved to [facility] 2 mos ago. Traveled to this area to [employer] bike. Supported by multiple siblings Spiritual:Lutheran, family does not desire excelsior machine tender support at this time Legal: per [place] statutes would be legal decision maker ( no living will or advanced directive). defers to pt 2 adult children (from prior marriage). Son wants daughter, who is an RN to act as primary proxy. They are all working together on decisions, supporting one another. Ethical issues impacting care: Important Contacts daughter Rita (pronounced "Ween") Ron [phone] serving as healthcare proxy ([place]) - ([place]) Son- Ashli Velasquez ([place]) . Prognosis This patient was admitted 08/28 with a severe traumatic brain injury requiring emergent evacuation by neurosurgery as a life-saving measure. He has remained in critical condition on mechanical vent. . Code Status: Full Code Plan * Legal decision maker: per [place] statutes would be legal decision maker ( no living will or advanced directive). defers to pt 2 adult children (from prior marriage). Son wants daughter, who is an RN to act as primary proxy. They are all working together on decisions, supporting one another. * FULL CODE * Family desires continued aggressive care including FULL CODE until daughter arrives over the weekend. Family would like to spend Father's Day with the patient. Anticipate transition to comfort focused care with withdrawal of life support early next week if no signs of clinical improvement as family has repeatedly stated the patient would not want tracheostomy/PEG tube placement or quality of life that did not provide him the ability to live the way he did prior to hospitalization. * SYMPTOMS: --encephalopathy- 2/2 severe TBI, SDH s/p emergent crani. Poor neuro response thus far. EEG severe slowing, + seizures, requiring multiple antiseizure medications. + gag, no withdrawal. -- dyspnea- intubated emergently for airway protection 2/2 severe TBI -- seizures - managed per neurology, had recurrent sz despite keppra, Keppra increased, dilantin added, Vimpat added -- pain- no chronic pain syndromes. potential sources include bedbound status , recent invasive procedures / no sx pain currently / will cont to evaluate -- no new medication recommendations at this time. Palliative care will assist with orders if family elects to transition to comfort measures. * Palliative care will continue to follow during hospital course as condition evolves, to assist patient/decision-maker with understanding of medical conditions, weighing benefits/burdens of treatment options, for clarification of goals of treatment. Additionally will assist with any symptoms of palliative concern. . . Time Spent Total Floor Time (mins): 45 Face to Face Time (mins): 30 >50% Counseling/Coord of Care: Yes Attestation To help prompt me to consider important information that might be impacting today's encounter and assessment, information from prior notes written by myself or my colleagues may have been "brought forward" into today's note. My signature on this note, however, is an attestation that I personally performed the exam, history, and/or decision-making noted today, and, unless otherwise indicated, the interactions with patient, family, and staff as well as the review of records all occurred today. I also attest that the listed assessment and stated plan reflect my best clinical judgment today based on the combination of historical information, prior notes, and today's exam/ interactions. When time spent is documented, it refers only to time spent today by the signer, or if indicated, combined time spent today by collaborating physician/nurse practitioner. . SIERRA CISNEROS Sep 07, 2016 16:25
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
[2016-09-07] MEDS: ACETAMINOPHEN 325 MG TAB PO PRN (18:52)
--- NOTE | 2016-09-07 20:39 | HHI.PR ---
Review/Management Diagnosis head trauma with sdh and intraparencymal hemorrhage right hemisphere Plan resume phosphenytoin add vimpat Diagnosis/Plan: Subjective Subjective Comments No acute events reported no clinical sz. Active Medications Current Medications Medications (Trade) Dose Ordered Sig/Leesa Route Start Time Stop Time Status Last Admin (Vasotec Inj) 1.25 mg Q8H PRN IV 08/28/16 11:00 Miscellaneous Information 1 Q361D XX 08/28/16 11:00 08/28/16 11:00 (NS Flush) 2 ml UNSCH PRN IVF 08/28/16 13:15 (NS Flush) 2 ml BID IVF 08/28/16 21:00 09/07/16 08:29 (Protonix Inj) 40 mg DAILY IVP 08/29/16 09:00 09/07/16 08:28 Calcium Gluconate 1 gm 1 gm UNSCH PRN IV 08/28/16 13:15 Potassium Chloride 100 ml @ 50 mls/hr UNSCH PRN IV 08/28/16 13:15 (Magnesium Sulfate Inj/NS Inj) 108 ml @ 108 mls/hr UNSCH PRN IV 08/28/16 13:15 Chlorhexidine Gluconate 15 ml 15 ml BID@08,20 MT 08/28/16 20:00 09/07/16 08:00 Propofol 100 ml @ 0 mls/hr TITRATE IV 08/28/16 14:30 09/07/16 14:38 (fentaNYL DRIP) 250 ml @ 0 mls/hr TITRATE IV 08/28/16 14:30 09/07/16 07:32 (Zofran Inj) 4 mg Q6H PRN IV 08/28/16 14:30 09/01/16 14:43 Miscellaneous Information 1 Q361D XX 08/28/16 14:30 08/28/16 14:30 (Chlorhexidine 2% Cloth) Taper DAILY@04 TOP 08/29/16 04:00 08/25/17 03:59 09/07/16 01:26 (Chlorhexidine 2% Cloth) 3 pack UNSCH PRN TOP 08/28/16 14:30 (Adali-Colace) 1 tab BID PO 08/28/16 21:00 09/07/16 08:28 (Milk Of Magnesia Liq) 30 ml Q12H PRN PO 08/28/16 14:30 Sennosides 17.2 mg 17.2 mg Q12H PRN PO 08/28/16 14:30 (Versed Inj) 100 ml @ 0 mls/hr TITRATE IV 08/29/16 07:00 09/07/16 07:32 Miscellaneous Information D/C ICU ELECTROLYTE ORDERS... UNSCH PRN .XX 08/30/16 08:45 Miscellaneous Information ICU - CALL ORDERING PHYSIC... UNSCH PRN .XX 08/30/16 08:45 (KCl 40 Meq Premix Inj) 100 ml @ 25 mls/hr UNSCH PRN IV 08/30/16 08:45 09/07/16 08:27 Potassium Bicarb/ Potassium Chloride 50 meq 50 meq UNSCH PRN PO 08/30/16 08:45 Potassium Chloride 100 ml @ 50 mls/hr UNSCH PRN IV 08/30/16 08:45 Magnesium Sulfate 4 gm/Sodium Chloride 108 ml @ 54 mls/hr UNSCH PRN IV 08/30/16 08:45 (Magnesium Sulfate Inj/NS Inj) 104 ml @ 52 mls/hr UNSCH PRN IV 08/30/16 08:45 Magnesium Oxide 800 mg 800 mg UNSCH PRN PO 08/30/16 08:45 (Sodium Phosphate Inj/NS 250 ml Inj) 260 ml @ 43.333 mls/ hr UNSCH PRN IV 08/30/16 08:45 Potassium Phosphate 2000 mg 2,000 mg UNSCH PRN PO 08/30/16 08:45 08/30/16 08:58 (Potassium Phosphate Inj/NS 250 ml Inj) 260 ml @ 43.333 mls/ hr UNSCH PRN IV 08/30/16 08:45 08/31/16 05:02 (Tears Naturale Opth Soln) 1 drop Q8H EACH EYE 08/30/16 10:00 09/07/16 18:00 Glycerin 2 gm 2 gm BID PRN RECTAL 09/01/16 07:45 (Sodium Chloride 3% Inj) 500 ml @ 10 mls/hr Q24H IV 09/01/16 09:00 09/07/16 08:29 Terbutaline Sulfate 1 mg 1 mg UNSCH PRN SQ 09/01/16 11:15 (Levophed Inj/NS 250 ml Inj) 266 ml @ 0 mls/hr TITRATE IV 09/01/16 16:16 09/05/16 21:55 Metoclopramide HCl 5 mg 5 mg Q8HR IV PUSH 09/02/16 09:45 09/07/16 13:31 (Keppra Inj/NS Inj) 115 ml @ 230 mls/hr Q12H IV 09/02/16 21:00 09/07/16 08:28 (NS Flush) DAILY IVF 09/04/16 11:00 09/07/16 08:29 Sodium Chloride UNSCH PRN IVF 09/04/16 10:45 (Vancomycin Consult Pharmacy) 0 ml @ 0 mls/hr UNSCH OTHER 09/04/16 14:00 (Tylenol) 650 mg Q4HR PRN PO 09/04/16 16:00 09/07/16 18:52 (Ofirmev Inj) 1,000 mg Q12HR PRN IV 09/05/16 09:30 09/05/16 10:14 Lactulose 30 ml 30 ml DAILY PO 09/05/16 09:30 09/07/16 08:28 Cefepime HCl 2000 mg/Sodium Chloride 100 ml @ 200 mls/hr Q8H IV 09/06/16 10:00 09/07/16 18:00 (Vancomycin Inj/ NS 250 ml Inj) 262.5 ml @ 250 mls/hr Q12H IV 09/06/16 21:00 09/07/16 08:28 Miscellaneous Information SPECIFIC LAB TO BE TIMOTHY... ONCE ONCE .XX 09/08/16 08:45 09/08/16 08:46 (Vimpat Inj/NS Inj) 105 ml @ 210 mls/hr Q8H IV 09/06/16 13:00 09/07/16 13:31 Allergies Allergies Coded Allergies No Known Allergies (Unverified09/03/16) Exam I&O / VS 09/06/16 09/06/16 09/07/16 15:00 23:00 07:00 Intake Total 1540 ml 1141 ml 1509 ml Output Total 1200 ml 1090 ml 970 ml Balance 340 ml 51 ml 539 ml IV Total 1123 ml 737 ml 973 ml Tube Feeding 417 ml 404 ml 536 ml Output Urine Total 1100 ml 1000 ml 900 ml Tube Feeding Residual Discard 0 ml 0 ml 0 ml Drainage Total 100 ml 90 ml 70 ml # Bowel Movements 3 1 Vital Signs Date Time Temp Pulse Resp B/P Pulse Ox O2 Delivery O2 Flow Rate FiO2 09/07/16 19:33 98 50 09/07/16 18:00 105 09/07/16 17:16 100 50 09/07/16 16:00 50 09/07/16 16:00 97.6 87 22 147/68 100 09/07/16 16:00 86 09/07/16 14:00 99 09/07/16 12:52 100 50 09/07/16 12:00 98.7 101 20 135/61 97 09/07/16 12:00 50 09/07/16 12:00 90 09/07/16 10:00 88 09/07/16 08:00 96 09/07/16 08:00 99.3 96 22 154/64 97 09/07/16 08:00 50 09/07/16 08:00 95 50 09/07/16 07:00 97 Mechanical Ventilator 50 09/07/16 06:00 88 09/07/16 04:13 97 50 09/07/16 04:00 50 09/07/16 04:00 98.2 101 30 149/95 97 09/07/16 04:00 101 09/07/16 02:00 90 09/07/16 01:19 97 50 09/07/16 00:00 50 09/07/16 00:00 99.5 97 28 157/68 97 09/07/16 00:00 97 09/06/16 22:00 87 Exam Comments nonresponsive pupils 2mm symmetric no spontaneous limb movement, no focal sz. Objective Micro and Labs Laboratory Tests Test 09/07/16 09/07/16 04:28 04:55 Blood Gas Puncture Site ART LINE Blood Gas Patient Temperature 98.6 Blood Gas HCO3 26 Blood Gas Base Excess 2.1 Blood Gas Oxygen Saturation 94 Arterial Blood pH 7.44 Arterial Blood Partial 39 Pressure CO2 Arterial Blood Partial 84 Pressure O2 Arterial Blood Oxygen Content 12.6 Arterial Blood 1.2 Carboxyhemoglobin Arterial Blood Methemoglobin 0.8 Blood Gas Hemoglobin 9.4 Oxygen Delivery Device VENTILATOR Blood Gas Ventilator Setting PRVC/AC Blood Gas Inspired Oxygen 50 White Blood Count 15.4 Red Blood Count 3.10 Hemoglobin 8.6 Hematocrit 26.2 Mean Corpuscular Volume 84.6 Mean Corpuscular Hemoglobin 27.8 Mean Corpuscular Hemoglobin 32.9 Concent Red Cell Distribution Width 14.6 Platelet Count 283 Mean Platelet Volume 8.8 Neutrophils (%) (Auto) 82.0 Lymphocytes (%) (Auto) 8.2 Monocytes (%) (Auto) 6.1 Eosinophils (%) (Auto) 3.3 Basophils (%) (Auto) 0.4 Neutrophils # (Auto) 12.7 Lymphocytes # (Auto) 1.3 Monocytes # (Auto) 0.9 Eosinophils # (Auto) 0.5 Basophils # (Auto) 0.1 CBC Comment AUTO DIFF Differential Total Cells 100 Counted Neutrophils % (Manual) 82 Band Neutrophils % 3 Lymphocytes % 7 Eosinophils % 3 Neutrophils # (Manual) 13.9 Metamyelocytes 5 Nucleated Red Blood Cells 1 Differential Comment FINAL DIFF MANUAL Platelet Estimate NORMAL Platelet Morphology Comment NORMAL Sodium Level 149 Potassium Level 3.3 Chloride Level 114 Carbon Dioxide Level 29.1 Anion Gap 6 Blood Urea Nitrogen 18 Creatinine 0.37 Estimat Glomerular Filtration 239 Rate Random Glucose 137 Calcium Level 7.7 Phosphorus Level 2.6 Magnesium Level 2.4 Total Bilirubin 1.5 Aspartate Amino Transf 72 (AST/SGOT) Alanine Aminotransferase 82 (ALT/SGPT) Alkaline Phosphatase 291 Total Protein 5.7 Albumin 1.3 Phenytoin (Dilantin) Level 3.2 Date/Time Procedure Status Source Growth 09/04/16 16:40 Gram Stain - Final Complete Bronchial Washings Left Lower Lobe 09/04/16 16:40 Bronchial Culture - Final Complete Staphylococcus Aureus Klebsiella Pneumoniae Enterobacter Aerogenes 09/04/16 16:40 Fungal Smear - Final Resulted Bronchial Washings Left Lower Lobe NO FUNGAL ELEMENTS SEEN. 09/04/16 16:40 Fungal Culture Resulted Bronchial Washings Left Lower Lobe Pending 09/04/16 16:40 Acid Fast Stain - Final Resulted Bronchial Washings Left Lower Lobe NO ACID FAST BACILLI SEEN 09/04/16 16:40 Mycobacterial Culture Resulted Bronchial Washings Left Lower Lobe Pending 09/04/16 11:55 Aerobic Blood Culture - Preliminary Resulted Blood Peripheral Staph Sp Coagulase Negative 09/04/16 11:55 Anaerobic Blood Culture - Preliminary Resulted Blood Peripheral NO GROWTH IN 3 DAYS Diagnostic Tests EEG--improved today with reduction in sharp activity Celio Chris PhD Sep 07, 2016 20:39
[2016-09-07] MEDS: FOSPHENYTOIN SODIUM 100 MG PE/2 ML VIAL IV SCH (22:45)
[2016-09-08] VITALS (18 sets, daily range): BP systolic 112–162; BP diastolic 52–68; PULSE 88–116; RESP 22–38; TEMP 96.3–101.1; O2SAT 93–99
[2016-09-08] MEDS: CEFEPIME INJ 2,000 MG in SODIUM CHLORIDE 0.9% INJ 100 ML IV SCH ×3 (02:44→16:25)
[2016-09-08] MEDS: ARTIFICIAL TEARS OPTH SOLN 15 ML BTL EACH EYE SCH ×3 (02:45→16:25)
[2016-09-08] MEDS: RESP: ALBUTEROL 2.5 MG/IPRATROPIUM 0.5 MG NEB (SCH) NEB ×2 (03:28→07:49)
[2016-09-08] MEDS: fentaNYL DRIP 250 ML IV SCH ×3 (03:34→21:25)
[2016-09-08] MEDS: CHLORHEXIDINE GLUCONATE 2 % 1 PACK (2 CLOTHS) TOP SCH (03:34)
[2016-09-08] MEDS: PROPOFOL 1000 MG/100 ML INJ 100 ML IV SCH ×3 (03:52→16:25)
[2016-09-08] MEDS: 3% SALINE INJ 500 ML IV SCH (04:11)
[2016-09-08] MEDS: ACETAMINOPHEN 325 MG TAB PO PRN (04:17)
[2016-09-08 04:59] LABS: BLOOD GAS BASE EXCESS 3.4 mmol/L (-2-2); BLOOD GAS CARBOXYHEMOGLOBIN 1.3 % (0-4); BLOOD GAS HCO3 27 mmol/L (22-26); BLOOD GAS METHEMOGLOBIN 0.8 % (0-2); BLOOD GAS O2 HGB SATURATION 92 % (90-100); BLOOD GAS OXYGEN CONTENT 11.6 Vol % (12.0-20.0); BLOOD GAS PCO2 37 mmHg (38-42); BLOOD GAS PO2 67 mmHg (61-120); BLOOD GAS TOTAL HGB 8.9 G/DL (12.0-16.0); CRITICAL VALUE NO; OXYGEN DEVICE VENTILATOR; TEMP CORR TO 98.6
[2016-09-08 05:00] LABS: DRAW SITE ART LINE; FIO2 60 %; STAT NO; VENT SETTINGS PRVC/AC
[2016-09-08] MEDS: LACOSAMIDE INJ 50 MG in SODIUM CHLORIDE 0.9% INJ 100 ML IV SCH ×3 (05:20→22:43)
[2016-09-08] MEDS: METOCLOPRAMIDE HCL 10 MG/2 ML VIAL IV PUSH SCH ×3 (05:20→21:17)
[2016-09-08] MEDS: FOSPHENYTOIN SODIUM 100 MG PE/2 ML VIAL IV SCH ×3 (05:21→21:17)
[2016-09-08 06:04] LABS: AUTOMATED NEUTROPHIL # 13.8 TH/MM3 (1.8-7.7); BASOPHIL # 0.1 TH/MM3 (0-0.2); BASOPHIL % 0.3 % (0.0-2.0); EOSINOPHIL # 0.8 TH/MM3 (0-0.4); EOSINOPHIL % 4.8 % (0.0-4.0); HEMATOCRIT 25.7 % (39.0-51.0); LYMPH % 6.3 % (9.0-44.0); MEAN CELL VOLUME 86.2 FL (80.0-100.0); MEAN CORPUSCULAR HEMOGLOBIN 27.7 PG (27.0-34.0); MEAN CORPUSCULAR HGB CONC 32.2 % (32.0-36.0); MONO % 5.3 % (0.0-8.0); NEUT % 83.3 % (16.0-70.0); PLATELET COUNT 300 TH/MM3 (150-450); RED BLOOD COUNT 2.98 MIL/MM3 (4.50-5.90); RED CELL DISTRIBUTION WIDTH 14.5 % (11.6-17.2); WHITE BLOOD COUNT 16.5 TH/MM3 (4.0-11.0)
--- NOTE | 2016-09-08 06:11 | RADRPT ---
EXAM DATE/TIME: 09/08/2016 04:24 [facility] COMPARISON: CHEST SINGLE AP, September 07, 2016, 4:35. INDICATIONS : Short of breath. MEDICAL HISTORY : None. SURGICAL HISTORY : CABG. ENCOUNTER: Subsequent ACUITY: 1 week PAIN SCORE: Non-responsive. LOCATION: Bilateral chest FINDINGS: There is slight improvement in the aeration of the left lung base and the rest of the dense air space process in the lungs have not changed. NG tube is present with tip in the stomach. Left IJ line is p resent with tip overlapping the expected region of the SVC. ET tube is present with tip overlapping a pproximately 10 cm above the caity. CONCLUSION: Minimal improvement in aeration of the left lung base, otherwise not changed. Marquis Almodovar MD on September 08, 2016 at 6:07 Board Certified Radiologist. This report was verified electronically.
[2016-09-08 06:17] LABS: HEMO FLAGS AUTO DIFF
[2016-09-08 06:33] LABS: ANION GAP 7 MEQ/L (5-15); AST (GOT) 71 U/L (15-37); BICARBONATE 28.6 MEQ/L (21.0-32.0); BLOOD UREA NITROGEN 17 MG/DL (7-18); CHLORIDE 113 MEQ/L (98-107); GLOMERULAR FILTRATION RATE 182 ML/MIN (>89); MAGNESIUM 2.4 MG/DL (1.5-2.5); POTASSIUM 3.1 MEQ/L (3.5-5.1); SODIUM (NA) 149 MEQ/L (136-145)
[2016-09-08 06:36] LABS: ALKALINE PHOSPHATASE 333 U/L (45-117); ALT (GPT) 84 U/L (12-78); TOTAL BILIRUBIN ADULT 1.8 MG/DL (0.2-1.0)
[2016-09-08 07:07] LABS: BANDS 21 % (0-6); EOSINOPHILS 4 % (0-4); METAMYELOCYTES 4 % (0-1); MYELOCYTES 1 % (0-0); NEUTROPHIL # MANUAL DIFF 13.2 TH/MM3 (1.8-7.7); PLATELET ESTIMATE SMEAR NORMAL (NORMAL); PLATELET MORPHOLOGY NORMAL (NORMAL); POLYS (SEG NEUTROPHILS) 54 % (16-70); SCAN/DIFF FINAL DIFF MANUAL; WBC DIFF SAMPLE 100
[2016-09-08] MEDS: CHLORHEXIDINE 0.12% (ORAL KIT) 15 ML CUP MT SCH ×2 (08:00→20:03)
[2016-09-08] MEDS ORDERED: PHARMACY ORDERED LAB ONE (08:45)
[2016-09-08] MEDS: SODIUM CHLORIDE 0.9% FLUSH 5 ML FLUSH IVF SCH ×2 (09:00→21:17)
[2016-09-08] MEDS: DOCUSATE SODIUM 50 MG/SENNA 8.6 MG TAB PO SCH ×2 (09:19→20:56)
[2016-09-08] MEDS: levETIRAcetam INJ 1,500 MG in SODIUM CHLORIDE 0.9% INJ 100 ML IV SCH ×2 (09:19→20:03)
[2016-09-08] MEDS: LACTULOSE SYRUP 20 GM/30 ML CUP PO SCH (09:19)
[2016-09-08] MEDS: PANTOPRAZOLE SODIUM 40 MG VIAL IVP SCH (09:19)
[2016-09-08] MEDS: VANCOMYCIN INJ 1,250 MG in SODIUM CHLOR 0.9% 250 ML INJ 250 ML IV SCH (09:19)
[2016-09-08] MEDS: SODIUM CHLORIDE 0.9% FLUSH 10 ML FLUSH IVF SCH (09:20)
[2016-09-08] MEDS: ACETAMINOPHEN 1000 MG/100 ML VIAL IV PRN (12:01)
[2016-09-08] MEDS: ICU - POTASSIUM CHLORIDE/AQUEOUS SOLN 40 MEQ/100 ML IVPB IV PRN ×2 (12:02→14:11)
[2016-09-08] MEDS: MIDAZOLAM 100 MG/ML INJ 100 ML IV SCH (12:12)
--- NOTE | 2016-09-08 12:17 | HHI.HCPN ---
Reason for visit a. To assist with evaluation and management of symptoms including: dyspnea, encephalopathy, seizures b. To assist medical decision maker(s) with: better understanding of current medical conditions; weighing benefits/burdens of medical treatment options; making medical treatment decisions. Subjective/Interval History Remains on mech vent, sedation. On Diprivan 50mcg, Fentanyl 250mcg, Versed 8mg drips. Levophed off. No lightening due to concern for seizures. Repeat EEG yesterday notes no seizure identified. LFTs continue to slowly up trend. Bilirubin 1.8. The CBC 16.5. Neuro, critical care have spoken w family. Additional family arriving over the weekend, for transition to comfort, withdrawal of life support sometime early next week, if no clinical improvement, after family has been able to spend Father's Day with patient. Janny has all been in agreement that patient would not want to proceed with tracheostomy, PEG or other invasive measures if he would not make a near full recovery and regain prior level of function. Patient seen in room multiple family members at bedside. Patient mother has arrived. Patient's son is present. He reiterates above described treatment course, indicates he is in agreement with sister serving as primary decision maker he wishes to relinquish his decision making, is deferred to them. Requests I prior provide update his sister, will plan to call her later. (* VM left for sister ) To my exam nonresponsive. + spont respirations over vent rate. No withdrawal to pain stimuli. D/w critical care, RN. Family/friend interactions Call received later in the afternoon from daughter (proxy). Provided medical update reviewed current conditions, assessments, medications and treatments in place. She informs family continues to arrive and plans to spend time with the patient, she plans to arrive Monday. Plans for likely transition to comfort measures early next week unless there has been significant clinical change. She requests information regarding local cremation/ advise palliative social service liaison can assist with emailing list, she provided email for this. Ongoing updates to be provided, she voices appreciation for all of patient's providers and care he has received. . Advance Directives Living Will: Never completed Health Care Surrogate: Never completed Durable Power of Religion Professor: Never completed Objective Vital Signs Date Time Temp Pulse Resp B/P Pulse Ox O2 Delivery O2 Flow Rate FiO2 09/08/16 07:49 98 60 09/08/16 06:00 100 09/08/16 04:08 94 60 09/08/16 04:00 107 09/08/16 04:00 50 09/08/16 04:00 100.4 107 38 112/68 93 09/08/16 02:00 96 09/08/16 01:10 97 50 09/08/16 00:00 98.8 96 25 162/65 98 09/08/16 00:00 50 09/08/16 00:00 96 09/07/16 22:00 98 09/07/16 20:00 105 09/07/16 20:00 50 09/07/16 20:00 98.2 105 20 167/64 95 09/07/16 19:33 98 50 09/07/16 19:00 95 Mechanical Ventilator 50 09/07/16 18:00 105 09/07/16 17:16 100 50 09/07/16 16:00 50 09/07/16 16:00 97.6 87 22 147/68 100 09/07/16 16:00 86 09/07/16 14:00 99 09/07/16 12:52 100 50 Physical Exam CONSTITUTIONAL/GENERAL: This is an adequately nourished patient, in no apparent distress, nonresponsive on mech vent. TUBES/LINES/DRAINS:central line, ETT, OGT, Early, SCDs, soft restraints BUE, arterial line HEAD: healing incision rt head, sommer intact CARDIOVASCULAR: Regular rate and rhythm , no murmurs.+ generalized edema to all extremities. RESPIRATORY/CHEST: Symmetric, unlabored respirations via mech vent. + Spontaneous respirations over vent rate. Crackles noted bilaterally, coarse rhonchi throughout. GASTROINTESTINAL: Abdomen soft, flat, unable to determine tenderness, mildly distended. normoactive bowel sounds. GENITOURINARY: Without palpable bladder distension. Early catheter in place. Clear dark yellow urine. NEUROLOGICAL: sedated/nonresponsive. no withdrawal to pain stimuli. No eye opening. pupils nonreactive. PSYCHIATRIC: sedated/limited assess due to condition. . Diagnostic Tests Laboratory Laboratory Tests Test 09/06/16 09/06/16 09/06/16 09/07/16 05:15 05:32 10:00 04:28 White Blood Count 17.1 TH/MM3 (4.0-11.0) Red Blood Count 3.11 MIL/MM3 (4.50-5.90) Hemoglobin 8.7 GM/DL (13.0-17.0) Hematocrit 26.6 % (39.0-51.0) Mean Corpuscular Volume 85.4 FL (80.0-100.0) Mean Corpuscular Hemoglobin 27.8 PG (27.0-34.0) Mean Corpuscular Hemoglobin 32.6 % Concent (32.0-36.0) Red Cell Distribution Width 14.5 % (11.6-17.2) Platelet Count 257 TH/MM3 (150-450) Mean Platelet Volume 8.9 FL (7.0-11.0) Neutrophils (%) (Auto) 82.8 % (16.0-70.0) Lymphocytes (%) (Auto) 6.0 % (9.0-44.0) Monocytes (%) (Auto) 8.0 % (0.0-8.0) Eosinophils (%) (Auto) 2.8 % (0.0-4.0) Basophils (%) (Auto) 0.4 % (0.0-2.0) Neutrophils # (Auto) 14.1 TH/MM3 (1.8-7.7) Lymphocytes # (Auto) 1.0 TH/MM3 (1.0-4.8) Monocytes # (Auto) 1.4 TH/MM3 (0-0.9) Eosinophils # (Auto) 0.5 TH/MM3 (0-0.4) Basophils # (Auto) 0.1 TH/MM3 (0-0.2) CBC Comment AUTO DIFF Differential Total Cells 100 Counted Neutrophils % (Manual) 65 % (16-70) Band Neutrophils % 23 % (0-6) Lymphocytes % 4 % (9-44) Monocytes % 5 % (0-8) Eosinophils % 1 % (0-4) Neutrophils # (Manual) 15.4 TH/MM3 (1.8-7.7) Metamyelocytes 2 % (0-1) Differential Comment FINAL DIFF MANUAL Platelet Estimate NORMAL (NORMAL) Platelet Morphology Comment NORMAL (NORMAL) Keratocytes OCC (NORMAL) Sodium Level 150 MEQ/L (136-145) Potassium Level 3.3 MEQ/L (3.5-5.1) Chloride Level 115 MEQ/L (98-107) Carbon Dioxide Level 25.3 MEQ/L (21.0-32.0) Anion Gap 10 MEQ/L (5-15) Blood Urea Nitrogen 19 MG/DL (7-18) Creatinine 0.48 MG/DL (0.60-1.30) Estimat Glomerular Filtration 177 ML/MIN Rate (>89) Random Glucose 130 MG/DL (74-106) Calcium Level 7.6 MG/DL (8.5-10.1) Phosphorus Level 2.1 MG/DL (2.5-4.9) Magnesium Level 2.5 MG/DL (1.5-2.5) Total Bilirubin 1.2 MG/DL (0.2-1.0) Aspartate Amino Transf 83 U/L (15-37) (AST/SGOT) Alanine Aminotransferase 71 U/L (12-78) (ALT/SGPT) Alkaline Phosphatase 226 U/L (45-117) Total Protein 5.9 GM/DL (6.4-8.2) Albumin 1.3 GM/DL (3.4-5.0) Blood Gas Puncture Site ART LINE ART LINE Blood Gas Patient Temperature 98.6 98.6 Blood Gas HCO3 26 mmol/L 26 mmol/L (22-26) (22-26) Blood Gas Base Excess 2.6 mmol/L 2.1 mmol/L (-2-2) (-2-2) Blood Gas Oxygen Saturation 91 % (90-100) 94 % (90-100) Arterial Blood pH 7.46 7.44 (7.380-7.420) (7.380-7.420) Arterial Blood Partial 37 mmHg (38-42) 39 mmHg (38-42) Pressure CO2 Arterial Blood Partial 65 mmHg 84 mmHg Pressure O2 (61-120) (61-120) Arterial Blood Oxygen Content 11.5 Vol % 12.6 Vol % (12.0-20.0) (12.0-20.0) Arterial Blood 1.3 % (0-4) 1.2 % (0-4) Carboxyhemoglobin Arterial Blood Methemoglobin 0.8 % (0-2) 0.8 % (0-2) Blood Gas Hemoglobin 9.0 G/DL 9.4 G/DL (12.0-16.0) (12.0-16.0) Oxygen Delivery Device VENTILATOR VENTILATOR Blood Gas Ventilator Setting PRVC/AC PRVC/AC Blood Gas Inspired Oxygen 60 % 50 % Vancomycin Level Trough 5.3 MCG/ML (5.0-10.0) Test 09/07/16 09/08/16 09/08/16 09/08/16 04:55 04:36 05:35 08:35 White Blood Count 15.4 TH/MM3 16.5 TH/MM3 (4.0-11.0) (4.0-11.0) Red Blood Count 3.10 MIL/MM3 2.98 MIL/MM3 (4.50-5.90) (4.50-5.90) Hemoglobin 8.6 GM/DL 8.3 GM/DL (13.0-17.0) (13.0-17.0) Hematocrit 26.2 % 25.7 % (39.0-51.0) (39.0-51.0) Mean Corpuscular Volume 84.6 FL 86.2 FL (80.0-100.0) (80.0-100.0) Mean Corpuscular Hemoglobin 27.8 PG 27.7 PG (27.0-34.0) (27.0-34.0) Mean Corpuscular Hemoglobin 32.9 % 32.2 % Concent (32.0-36.0) (32.0-36.0) Red Cell Distribution Width 14.6 % 14.5 % (11.6-17.2) (11.6-17.2) Platelet Count 283 TH/MM3 300 TH/MM3 (150-450) (150-450) Mean Platelet Volume 8.8 FL 9.0 FL (7.0-11.0) (7.0-11.0) Neutrophils (%) (Auto) 82.0 % 83.3 % (16.0-70.0) (16.0-70.0) Lymphocytes (%) (Auto) 8.2 % 6.3 % (9.0-44.0) (9.0-44.0) Monocytes (%) (Auto) 6.1 % (0.0-8.0) 5.3 % (0.0-8.0) Eosinophils (%) (Auto) 3.3 % (0.0-4.0) 4.8 % (0.0-4.0) Basophils (%) (Auto) 0.4 % (0.0-2.0) 0.3 % (0.0-2.0) Neutrophils # (Auto) 12.7 TH/MM3 13.8 TH/MM3 (1.8-7.7) (1.8-7.7) Lymphocytes # (Auto) 1.3 TH/MM3 1.0 TH/MM3 (1.0-4.8) (1.0-4.8) Monocytes # (Auto) 0.9 TH/MM3 0.9 TH/MM3 (0-0.9) (0-0.9) Eosinophils # (Auto) 0.5 TH/MM3 0.8 TH/MM3 (0-0.4) (0-0.4) Basophils # (Auto) 0.1 TH/MM3 0.1 TH/MM3 (0-0.2) (0-0.2) CBC Comment AUTO DIFF AUTO DIFF Differential Total Cells 100 100 Counted Neutrophils % (Manual) 82 % (16-70) 54 % (16-70) Band Neutrophils % 3 % (0-6) 21 % (0-6) Lymphocytes % 7 % (9-44) 11 % (9-44) Eosinophils % 3 % (0-4) 4 % (0-4) Neutrophils # (Manual) 13.9 TH/MM3 13.2 TH/MM3 (1.8-7.7) (1.8-7.7) Metamyelocytes 5 % (0-1) 4 % (0-1) Nucleated Red Blood Cells 1 /100 WBC (0-0) Differential Comment FINAL DIFF FINAL DIFF MANUAL MANUAL Platelet Estimate NORMAL NORMAL (NORMAL) (NORMAL) Platelet Morphology Comment NORMAL NORMAL (NORMAL) (NORMAL) Sodium Level 149 MEQ/L 149 MEQ/L (136-145) (136-145) Potassium Level 3.3 MEQ/L 3.1 MEQ/L (3.5-5.1) (3.5-5.1) Chloride Level 114 MEQ/L 113 MEQ/L (98-107) (98-107) Carbon Dioxide Level 29.1 MEQ/L 28.6 MEQ/L (21.0-32.0) (21.0-32.0) Anion Gap 6 MEQ/L (5-15) 7 MEQ/L (5-15) Blood Urea Nitrogen 18 MG/DL (7-18) 17 MG/DL (7-18) Creatinine 0.37 MG/DL 0.47 MG/DL (0.60-1.30) (0.60-1.30) Estimat Glomerular Filtration 239 ML/MIN 182 ML/MIN Rate (>89) (>89) Random Glucose 137 MG/DL 132 MG/DL (74-106) (74-106) Calcium Level 7.7 MG/DL 7.6 MG/DL (8.5-10.1) (8.5-10.1) Phosphorus Level 2.6 MG/DL (2.5-4.9) Magnesium Level 2.4 MG/DL 2.4 MG/DL (1.5-2.5) (1.5-2.5) Total Bilirubin 1.5 MG/DL 1.8 MG/DL (0.2-1.0) (0.2-1.0) Aspartate Amino Transf 72 U/L (15-37) 71 U/L (15-37) (AST/SGOT) Alanine Aminotransferase 82 U/L (12-78) 84 U/L (12-78) (ALT/SGPT) Alkaline Phosphatase 291 U/L 333 U/L (45-117) (45-117) Total Protein 5.7 GM/DL 5.5 GM/DL (6.4-8.2) (6.4-8.2) Albumin 1.3 GM/DL 1.2 GM/DL (3.4-5.0) (3.4-5.0) Phenytoin (Dilantin) Level 3.2 MCG/ML (10.0-20.0) Blood Gas Puncture Site ART LINE Blood Gas Patient Temperature 98.6 Blood Gas HCO3 27 mmol/L (22-26) Blood Gas Base Excess 3.4 mmol/L (-2-2) Blood Gas Oxygen Saturation 92 % (90-100) Arterial Blood pH 7.47 (7.380-7.420) Arterial Blood Partial 37 mmHg (38-42) Pressure CO2 Arterial Blood Partial 67 mmHg Pressure O2 (61-120) Arterial Blood Oxygen Content 11.6 Vol % (12.0-20.0) Arterial Blood 1.3 % (0-4) Carboxyhemoglobin Arterial Blood Methemoglobin 0.8 % (0-2) Blood Gas Hemoglobin 8.9 G/DL (12.0-16.0) Oxygen Delivery Device VENTILATOR Blood Gas Ventilator Setting PRVC/AC Blood Gas Inspired Oxygen 60 % Monocytes % 5 % (0-8) Myelocytes 1 % (0-0) Red Cell Morphology Comment (NORMAL) Vancomycin Level Trough 13.3 MCG/ML (5.0-10.0) Result Diagram: 09/08/16 0535 09/08/16 0535 Imaging Last Impressions Chest X-Ray 09/08/16 0600 Signed Impressions: Service Date/Time: August 04:24 - CONCLUSION: Minimal improvement in aeration of the left lung base, otherwise not changed. Marquis Almodovar MD Head CT 09/06/16 0000 Signed Impressions: Service Date/Time: Tuesday, September 06, 2016 12:16 - CONCLUSION: 1. Stable 1.7 cm left frontal intraparenchymal hemorrhage, tiny areas of subarachnoid hemorrhage within the left high parietal region and right tentorial subdural hematoma. Minimal subdural hematoma is also noted within the right posterior high parietal region measuring 4 mm in thickness. 2. Minimal stable subfalcine herniation to the left measuring 3 mm. Ryley Zelaya MD Lower Extremity Ultrasound 09/04/16 0000 Signed Impressions: Service Date/Time: Sunday, September 04, 2016 16:01 - CONCLUSION: No DVT of either lower extremity. Gonzales Harper MD Abdomen Ultrasound 09/04/16 0000 Signed Impressions: Service Date/Time: Sunday, September 04, 2016 15:40 - CONCLUSION: 1. Minimal amount of abdominal fluid about the liver and spleen. Small bilateral pleural effusions. 2. Sludge within the gallbladder. No echogenic stones seen. 3. The superior/inferior dimension of the liver is above normal limits, but there is not a hepatomegaly due to Alethea's lobe configuration. Josh Hobbs MD Pelvis X-Ray 08/28/16 1039 Signed Impressions: Service Date/Time: Sunday, August 28, 2016 10:31 - CONCLUSION: Unremarkable examination of the pelvis. Dakota Pack MD Maxillofacial CT 08/28/16 1039 Signed Impressions: Service Date/Time: Sunday, August 28, 2016 11:00 - CONCLUSION: No evidence of fracture. Adolfo Yusuf MD Cervical Spine CT 08/28/16 1039 Signed Impressions: Service Date/Time: Sunday, August 28, 2016 11:00 - CONCLUSION: No evidence of fracture. Multilevel degenerative findings. Adolfo Yusuf MD Abdomen/Pelvis CT 08/28/16 1039 Signed Impressions: Service Date/Time: Sunday, August 28, 2016 11:06 - CONCLUSION: No acute findings in the abdomen and pelvis. Adolfo Yusuf MD Chest CT 08/28/16 0000 Signed Impressions: Service Date/Time: Sunday, August 28, 2016 11:06 - CONCLUSION: Dependent opacity in the lungs. No other acute findings in the chest. Adolfo Yusuf MD Procedures 08/28 Right frontotemporal parietal decompressive craniotomy with placement ICP monitor Assessment and Plan Disease Oriented Problem List: (1) Subdural hematoma Comment: s/p right frontotemporal parietal decompressive craniotomy 08/28 (2) Respiratory failure (3) Hypernatremia (4) Seizure (5) Serratia marcescens infection Comment: pneumonia Symptom Scale: (1) Dysphagia 0-10 Scale: Unable to quantify (2) Encephalopathy 0-10 Scale: Unable to quantify (3) Seizure 0-10 Scale: Unable to quantify Pertinent Non-Medical Issues Psychosocial:Ivorian. to( second) since 2007. 2 adult children ( from 2st marriage) . daughter lives in [place], is ICU nurse. Son lives in [place], is a [employer] river [employer]. Pt is retired from the [employer], retired early in the past couple years to enjoy and active correction. Pt just bought a home/ moved to [facility] 2 mos ago. Traveled to this area to [employer] [place]. Supported by multiple siblings Spiritual:Latter-Day, family does not desire office associate support at this time Legal: per [place] statutes would be legal decision maker ( no living will or advanced directive). defers to pt 2 adult children (from prior marriage). Son wants daughter, who is an RN to act as primary proxy. They are all working together on decisions, supporting one another. Ethical issues impacting care: Important Contacts daughter Rita (pronounced "Ween") [facility] [phone] serving as healthcare proxy ([place]) EMAIL: [email or web address] - ([facility]) Son- Ashli Velasquez ([place]) . Prognosis This patient was admitted 08/28 with a severe traumatic brain injury requiring emergent evacuation by neurosurgery as a life-saving measure. He has remained in critical condition on mechanical vent. . Code Status: Full Code Plan * Legal decision maker: per [place] statutes would be legal decision maker ( no living will or advanced directive). defers to pt 2 adult children (from prior marriage). Son wants daughter, who is an RN to act as primary proxy. They are all working together on decisions, supporting one another. * FULL CODE * Family desires continued aggressive care including FULL CODE until daughter arrives over the weekend. Family would like to spend Father's Day with the patient. Anticipate transition to comfort focused care with withdrawal of life support early next week if no signs of clinical improvement as family has repeatedly stated the patient would not want tracheostomy/PEG tube placement or quality of life that did not provide him the ability to live the way he did prior to hospitalization. palliative to email home information to dtr. * SYMPTOMS: --encephalopathy- 2/2 severe TBI, SDH s/p emergent crani. Poor neuro response thus far. EEG severe slowing, + seizures, requiring multiple antiseizure medications. Most recent repeat EEG with no seizure activity identified. + gag, no withdrawal. -- dyspnea- intubated emergently for airway protection 2/2 severe TBI -- seizures - managed per neurology, had recurrent sz despite keppra, Keppra increased, dilantin added, Vimpat added ; no seizure activity per EEG yesterday 09/07 -- pain- no chronic pain syndromes. potential sources include bedbound status , recent invasive procedures / no sx pain currently / will cont to evaluate -- no new medication recommendations at this time. Palliative care will assist with orders if family elects to transition to comfort measures. * Palliative care will continue to follow during hospital course as condition evolves, to assist patient/decision-maker with understanding of medical conditions, weighing benefits/burdens of treatment options, for clarification of goals of treatment. Additionally will assist with any symptoms of palliative concern. . . Attestation To help prompt me to consider important information that might be impacting today's encounter and assessment, information from prior notes written by myself or my colleagues may have been "brought forward" into today's note. My signature on this note, however, is an attestation that I personally performed the exam, history, and/or decision-making noted today, and, unless otherwise indicated, the interactions with patient, family, and staff as well as the review of records all occurred today. I also attest that the listed assessment and stated plan reflect my best clinical judgment today based on the combination of historical information, prior notes, and today's exam/ interactions. When time spent is documented, it refers only to time spent today by the signer, or if indicated, combined time spent today by collaborating physician/nurse practitioner. Corrine Arteaga Sep 08, 2016 12:17
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
[2016-09-08] MEDS ORDERED: ROCURONIUM INJ 50 MG/5 ML VIAL ONE (13:19)
[2016-09-08] MEDS ORDERED: LORazepam 2 MG/ML VIAL IV PUSH ONE (14:00)
--- NOTE | 2016-09-08 14:25 | RADRPT ---
EXAM DATE/TIME: 09/08/2016 13:59 [facility] COMPARISON: CHEST SINGLE AP, September 08, 2016, 4:24. INDICATIONS : ET tube placement. MEDICAL HISTORY : Cardiovascular disease. SURGICAL HISTORY : CABG. ENCOUNTER: Subsequent ACUITY: 2 weeks PAIN SCORE: 0/10 LOCATION: Bilateral chest FINDINGS: The endotracheal tube has been advanced and is now situated approximately 2 cm above the caity. Naso gastric tube has been removed. Left jugular central line remains in good position. Extensive air space disease remains evident throughout both lungs without significant improvement. CONCLUSION: Repositioning of endotracheal tube which is now in good position. Extensive diffuse pulmonary airspace disease without significant improvement. Removal of nasogastric tube. Toy Sullivan MD on September 08, 2016 at 14:21 Board Certified Radiologist. This report was verified electronically.
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
--- NOTE | 2016-09-08 17:45 | PD.PROCEDR ---
Procedure Note Procedure Procedure: Endotracheal intubation Preop diagnosis: TBI, acute respiratory failure on mechanical ventilation, pneumonia Postop diagnosis: Same Sedation used: Propofol/fentanyl IV infusion, Versed 5 mg IV, rocuronium 50 mg IV for neuromuscular blockade Procedure: Patient's pre-existing ET tube was noted to be high on chest x-ray. On inserting lites covert was noted that ET tube cuff was above the vocal cords. Attempt at advancing ET tube was unsuccessful. A tube exchanger was attempted to be passed through the pre-existing ET tube however could not be passed down through the vocal cords hence decision was made to reintubate patient. Pre- existing ET tube was removed with glide scope in place. Vocal cords were visualized using glide scope An 8 Wallisian ET tube was passed through the vocal cords under direct visualization up to the 24 centimeter erich and after inflating cuff of ET tube, correct placement was confirmed using bagging with good color change on CO2 detector, 5 point auscultation and chest rise with ventilation. Patient was connected to mechanical ventilation. Patient tolerated the procedure well with no immediate complications noted. Postprocedure chest x-ray was ordered and reviewed with good placement of ET tube above caity. Alpesh Braden MD Sep 08, 2016 17:44
[2016-09-08] MEDS ORDERED: SODIUM CHLOR 0.9% 1000 ML INJ 1,000 ML IV ONE (18:00)
--- NOTE | 2016-09-08 19:52 | RADRPT ---
EXAM DATE/TIME: 09/08/2016 19:19 [facility] COMPARISON: No previous studies available for comparison. INDICATIONS : OG tube placement. MEDICAL HISTORY : None. SURGICAL HISTORY : None. ENCOUNTER: Initial ACUITY: 1 day PAIN SCORE: Non-responsive. LOCATION: abdomen. FINDINGS: Port is thought to be the tip of the orogastric tube is in the lower esophagus. Nothing courses into the stomach. Visualized portions of the bowel gas pattern are nonobstructive. No gastric distention s een. CONCLUSION: Orogastric tube tip is in the lower esophagus a couple centimeters above the GE junction. It can be a dvanced 10-15 cm. Gonzales Harper MD on September 08, 2016 at 19:48 Board Certified Radiologist. This report was verified electronically.
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
[2016-09-08] MEDS: VANCOMYCIN INJ 1,500 MG in SODIUM CHLORID 0.9% 500 ML INJ 500 ML IV SCH (20:29)
[2016-09-09] VITALS (19 sets, daily range): BP systolic 100–121; BP diastolic 48–85; PULSE 84–107; RESP 18–24; TEMP 97.7–102.2; O2SAT 88–99
[2016-09-09] MEDS: CEFEPIME INJ 2,000 MG in SODIUM CHLORIDE 0.9% INJ 100 ML IV SCH ×2 (00:32→09:31)
[2016-09-09] MEDS: ARTIFICIAL TEARS OPTH SOLN 15 ML BTL EACH EYE SCH ×3 (00:32→17:16)
[2016-09-09] MEDS: MIDAZOLAM 100 MG/ML INJ 100 ML IV SCH ×3 (00:32→19:44)
[2016-09-09] MEDS: PROPOFOL 1000 MG/100 ML INJ 100 ML IV SCH ×6 (00:32→22:51)
[2016-09-09] MEDS: RESP: ALBUTEROL 2.5 MG/IPRATROPIUM 0.5 MG NEB (PRN) INH ×2 (03:08→07:44)
[2016-09-09] MEDS: CHLORHEXIDINE GLUCONATE 2 % 1 PACK (2 CLOTHS) TOP SCH (04:00)
[2016-09-09] MEDS: LACOSAMIDE INJ 50 MG in SODIUM CHLORIDE 0.9% INJ 100 ML IV SCH ×3 (04:47→20:42)
[2016-09-09 05:00] LABS: AUTOMATED NEUTROPHIL # 19.4 TH/MM3 (1.8-7.7); BASOPHIL # 0.1 TH/MM3 (0-0.2); BASOPHIL % 0.2 % (0.0-2.0); EOSINOPHIL # 0.8 TH/MM3 (0-0.4); EOSINOPHIL % 3.5 % (0.0-4.0); LYMPH % 6.9 % (9.0-44.0); LYMPHOCYTE # 1.6 TH/MM3 (1.0-4.8); MEAN CELL VOLUME 85.4 FL (80.0-100.0); MEAN CORPUSCULAR HEMOGLOBIN 27.7 PG (27.0-34.0); MEAN CORPUSCULAR HGB CONC 32.4 % (32.0-36.0); MONO % 4.8 % (0.0-8.0); NEUT % 84.6 % (16.0-70.0); PLATELET COUNT 343 TH/MM3 (150-450); RED BLOOD COUNT 2.92 MIL/MM3 (4.50-5.90); RED CELL DISTRIBUTION WIDTH 14.5 % (11.6-17.2)
[2016-09-09 05:03] LABS: HEMO FLAGS AUTO DIFF
[2016-09-09] MEDS: FOSPHENYTOIN SODIUM 100 MG PE/2 ML VIAL IV SCH ×2 (05:10→13:08)
[2016-09-09] MEDS: METOCLOPRAMIDE HCL 10 MG/2 ML VIAL IV PUSH SCH ×3 (05:10→22:27)
[2016-09-09 05:18] LABS: ALT (GPT) 64 U/L (12-78); ANION GAP 6 MEQ/L (5-15); AST (GOT) 43 U/L (15-37); BICARBONATE 28.1 MEQ/L (21.0-32.0); BLOOD UREA NITROGEN 19 MG/DL (7-18); CHLORIDE 116 MEQ/L (98-107); GLOMERULAR FILTRATION RATE 177 ML/MIN (>89); POTASSIUM 3.5 MEQ/L (3.5-5.1); SODIUM (NA) 150 MEQ/L (136-145)
[2016-09-09 05:21] LABS: ALKALINE PHOSPHATASE 313 U/L (45-117)
[2016-09-09 06:13] LABS: BANDS 7 % (0-6); CORRECTED NUCLEATED RBC 1 /100 WBC (0-0); EOSINOPHILS 7 % (0-4); METAMYELOCYTES 2 % (0-1); MYELOCYTES 1 % (0-0); NEUTROPHIL # MANUAL DIFF 20.2 TH/MM3 (1.8-7.7); POLYS (SEG NEUTROPHILS) 78 % (16-70); WBC DIFF SAMPLE 100
[2016-09-09 06:14] LABS: OVALOCYTES 1+ (NORMAL); PLATELET ESTIMATE SMEAR NORMAL (NORMAL); PLATELET MORPHOLOGY NORMAL (NORMAL); SCAN/DIFF FINAL DIFF MANUAL
[2016-09-09] MEDS: fentaNYL DRIP 250 ML IV SCH (06:38)
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
[2016-09-09] MEDS: CHLORHEXIDINE 0.12% (ORAL KIT) 15 ML CUP MT SCH ×2 (08:28→20:00)
[2016-09-09] MEDS: SODIUM CHLORIDE 0.9% FLUSH 10 ML FLUSH IVF SCH (09:29)
[2016-09-09] MEDS: DOCUSATE SODIUM 50 MG/SENNA 8.6 MG TAB PO SCH ×2 (09:29→20:40)
[2016-09-09] MEDS: SODIUM CHLORIDE 0.9% FLUSH 10 ML FLUSH IVF PRN (09:29)
[2016-09-09] MEDS: LACTULOSE SYRUP 20 GM/30 ML CUP PO SCH (09:30)
[2016-09-09] MEDS: PANTOPRAZOLE SODIUM 40 MG VIAL IVP SCH (09:30)
[2016-09-09] MEDS: levETIRAcetam INJ 1,500 MG in SODIUM CHLORIDE 0.9% INJ 100 ML IV SCH ×2 (09:31→20:41)
[2016-09-09] MEDS: 3% SALINE INJ 500 ML IV SCH (09:32)
[2016-09-09] MEDS: SODIUM CHLORIDE 0.9% FLUSH 5 ML FLUSH IVF SCH ×2 (09:33→20:42)
[2016-09-09] MEDS: VANCOMYCIN INJ 1,500 MG in SODIUM CHLORID 0.9% 500 ML INJ 500 ML IV SCH ×2 (09:35→20:42)
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
[2016-09-09] MEDS: ACETAMINOPHEN 1000 MG/100 ML VIAL IV PRN (12:28)
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
[2016-09-09] MEDS ORDERED: LEVOFLOXACIN 750 MG PREMIX INJ 150 ML IV SCH (13:00)
[2016-09-09] MEDS: SODIUM CHLOR 0.9% IV SCH (15:25)
[2016-09-09] MEDS: NOREPINEPHRINE IV SCH (15:25)
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
[2016-09-09] MEDS ORDERED: FOSPHENYTOIN SODIUM 100 MG PE/2 ML VIAL IV ONE (18:45)
[2016-09-09] MEDS: ACETAMINOPHEN 325 MG TAB PO PRN (20:40)
[2016-09-10] VITALS (21 sets, daily range): BP systolic 98–121; BP diastolic 64–84; PULSE 76–118; RESP 18–42; TEMP 97.6–101.5; O2SAT 88–100
[2016-09-10] MEDS: FOSPHENYTOIN SODIUM 100 MG PE/2 ML VIAL IV SCH ×4 (00:09→17:05)
[2016-09-10] MEDS: RESP: ALBUTEROL 2.5 MG/IPRATROPIUM 0.5 MG NEB (PRN) INH ×2 (00:20→19:54)
[2016-09-10] MEDS: fentaNYL DRIP 250 ML IV SCH ×2 (01:33→13:05)
[2016-09-10] MEDS: ARTIFICIAL TEARS OPTH SOLN 15 ML BTL EACH EYE SCH ×3 (02:00→17:05)
[2016-09-10] MEDS: MIDAZOLAM 100 MG/ML INJ 100 ML IV SCH ×3 (03:00→21:29)
[2016-09-10] MEDS: CHLORHEXIDINE GLUCONATE 2 % 1 PACK (2 CLOTHS) TOP SCH (03:39)
[2016-09-10 03:48] LABS: BASOPHIL # 0.1 TH/MM3 (0-0.2); BASOPHIL % 0.4 % (0.0-2.0); EOSINOPHIL # 0.8 TH/MM3 (0-0.4); EOSINOPHIL % 4.3 % (0.0-4.0); HEMATOCRIT 23.4 % (39.0-51.0); LYMPH % 7.5 % (9.0-44.0); LYMPHOCYTE # 1.4 TH/MM3 (1.0-4.8); MEAN CELL VOLUME 84.8 FL (80.0-100.0); MEAN CORPUSCULAR HEMOGLOBIN 28.2 PG (27.0-34.0); MEAN CORPUSCULAR HGB CONC 33.3 % (32.0-36.0); MONO % 5.3 % (0.0-8.0); NEUT % 82.5 % (16.0-70.0); PLATELET COUNT 354 TH/MM3 (150-450); RED BLOOD COUNT 2.76 MIL/MM3 (4.50-5.90); RED CELL DISTRIBUTION WIDTH 14.8 % (11.6-17.2); WHITE BLOOD COUNT 18.2 TH/MM3 (4.0-11.0)
[2016-09-10 03:52] LABS: HEMO FLAGS AUTO DIFF
[2016-09-10] MEDS: PROPOFOL 1000 MG/100 ML INJ 100 ML IV SCH ×3 (04:07→17:47)
[2016-09-10 04:21] LABS: BICARBONATE 30.2 MEQ/L (21.0-32.0); CALCIUM-PROTEIN CORRECTED 8.2 MG/DL (8.5-10.1); POTASSIUM 3.4 MEQ/L (3.5-5.1); TOTAL BILIRUBIN ADULT 2.1 MG/DL (0.2-1.0)
[2016-09-10] MEDS: LACOSAMIDE INJ 50 MG in SODIUM CHLORIDE 0.9% INJ 100 ML IV SCH ×3 (04:33→20:57)
[2016-09-10] MEDS: METOCLOPRAMIDE HCL 10 MG/2 ML VIAL IV PUSH SCH ×3 (05:19→21:58)
[2016-09-10] MEDS: ACETAMINOPHEN 325 MG TAB PO PRN (06:34)
[2016-09-10] MEDS: ICU - POTASSIUM CHLORIDE/AQUEOUS SOLN 40 MEQ/100 ML IVPB IV PRN (06:34)
[2016-09-10 08:15] LABS: BANDS 15 % (0-6); CORRECTED NUCLEATED RBC 2 /100 WBC (0-0); EOSINOPHILS 5 % (0-4); METAMYELOCYTES 1 % (0-1); MYELOCYTES 1 % (0-0); NEUTROPHIL # MANUAL DIFF 15.3 TH/MM3 (1.8-7.7); PLASMA CELLS 1 % (0-0); POLYS (SEG NEUTROPHILS) 67 % (16-70); WBC DIFF SAMPLE 100
[2016-09-10 08:16] LABS: PLATELET ESTIMATE SMEAR NORMAL (NORMAL); PLATELET MORPHOLOGY ENLARGED (NORMAL); SCAN/DIFF FINAL DIFF MANUAL
[2016-09-10] MEDS: VANCOMYCIN INJ 1,500 MG in SODIUM CHLORID 0.9% 500 ML INJ 500 ML IV SCH (08:20)
[2016-09-10] MEDS: 3% SALINE INJ 500 ML IV SCH (08:20)
[2016-09-10] MEDS: levETIRAcetam INJ 1,500 MG in SODIUM CHLORIDE 0.9% INJ 100 ML IV SCH ×2 (08:20→21:00)
[2016-09-10] MEDS: DOCUSATE SODIUM 50 MG/SENNA 8.6 MG TAB PO SCH ×2 (08:21→21:00)
[2016-09-10] MEDS: LACTULOSE SYRUP 20 GM/30 ML CUP PO SCH (08:21)
[2016-09-10] MEDS: PANTOPRAZOLE SODIUM 40 MG VIAL IVP SCH (08:21)
[2016-09-10] MEDS: SODIUM CHLORIDE 0.9% FLUSH 10 ML FLUSH IVF SCH (08:22)
[2016-09-10] MEDS: SODIUM CHLORIDE 0.9% FLUSH 10 ML FLUSH IVF PRN (08:22)
[2016-09-10] MEDS: CHLORHEXIDINE 0.12% (ORAL KIT) 15 ML CUP MT SCH ×2 (08:23→20:00)
[2016-09-10] MEDS: SODIUM CHLORIDE 0.9% FLUSH 5 ML FLUSH IVF SCH ×2 (08:23→21:00)
[2016-09-10] MEDS ORDERED: PHARMACY ORDERED LAB ONE (08:45)
[2016-09-10 09:57] LABS: BLOOD GAS BASE EXCESS 2.6 mmol/L (-2-2); BLOOD GAS HCO3 27 mmol/L (22-26); BLOOD GAS METHEMOGLOBIN 0.9 % (0-2); BLOOD GAS O2 HGB SATURATION 97 % (90-100); BLOOD GAS PCO2 46 mmHg (38-42); BLOOD GAS PO2 145 mmHg (61-120); BLOOD GAS TOTAL HGB 7.8 G/DL (12.0-16.0); CRITICAL VALUE NO; DRAW SITE ART LINE; FIO2 100 %; OXYGEN DEVICE VENTILATOR; STAT YES; TEMP CORR TO 98.6
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
[2016-09-10] MEDS: VANCOMYCIN 1,000 MG/NS 250 ML IV SCH ×2 (16:39)
[2016-09-10] MEDS ORDERED: LORazepam 2 MG/ML VIAL ONE (20:29)
--- NOTE | 2016-09-10 21:51 | RADRPT ---
EXAM DATE/TIME: 09/10/2016 21:16 [facility] COMPARISON: CHEST SINGLE AP, September 08, 2016, 13:59. INDICATIONS : Respiratory failure MEDICAL HISTORY : Cardiovascular disease. SURGICAL HISTORY : CABG. ENCOUNTER: Subsequent ACUITY: 2 weeks PAIN SCORE: Non-responsive. LOCATION: Bilateral chest FINDINGS: Worsening consolidation seen left mid lung and right upper lobe. Warming blanket present. Small left pleural effusion suspected. No pneumothorax. Endotracheal tube tip is approximately 3 cm above the caity, unchanged. Nasogastric tube courses int o the stomach. Left internal jugular central venous catheter again seen, tip in the superior vena cav a. CONCLUSION: Worsening bilateral consolidation. Gonzales Harper MD on September 10, 2016 at 21:48 Board Certified Radiologist. This report was verified electronically.
[2016-09-10] MEDS: FUROSEMIDE 20 MG/2 ML VIAL IV PUSH SCH (21:59)
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
[2016-09-11] VITALS (19 sets, daily range): BP systolic 88–124; BP diastolic 62–81; PULSE 70–120; RESP 18–28; TEMP 97.2–98.5; O2SAT 89–98
[2016-09-11] MEDS: FOSPHENYTOIN SODIUM 100 MG PE/2 ML VIAL IV SCH ×5 (00:02→23:46)
[2016-09-11] MEDS: CEFEPIME INJ 2,000 MG in SODIUM CHLORIDE 0.9% INJ 100 ML IV SCH ×4 (00:03→23:46)
[2016-09-11] MEDS: VANCOMYCIN 1,000 MG/NS 250 ML IV SCH ×6 (00:04→17:17)
[2016-09-11] MEDS: PROPOFOL 1000 MG/100 ML INJ 100 ML IV SCH ×3 (00:56→08:22)
[2016-09-11] MEDS: ARTIFICIAL TEARS OPTH SOLN 15 ML BTL EACH EYE SCH ×3 (02:00→17:18)
[2016-09-11] MEDS: MICAFUNGIN INJ 150 MG in SODIUM CHLORIDE 0.9% INJ 100 ML IV SCH (02:33)
[2016-09-11] MEDS: CHLORHEXIDINE GLUCONATE 2 % 1 PACK (2 CLOTHS) TOP SCH (04:00)
[2016-09-11] MEDS: MIDAZOLAM 100 MG/ML INJ 100 ML IV SCH ×4 (04:08→23:46)
[2016-09-11] MEDS: METOCLOPRAMIDE HCL 10 MG/2 ML VIAL IV PUSH SCH ×3 (04:08→21:07)
[2016-09-11] MEDS: LACOSAMIDE INJ 50 MG in SODIUM CHLORIDE 0.9% INJ 100 ML IV SCH ×3 (04:09→21:08)
[2016-09-11] MEDS: FUROSEMIDE 20 MG/2 ML VIAL IV PUSH SCH ×4 (04:10→21:07)
[2016-09-11] MEDS: fentaNYL DRIP 250 ML IV SCH ×2 (04:29→23:45)
[2016-09-11 04:59] LABS: AUTOMATED NEUTROPHIL # 18.7 TH/MM3 (1.8-7.7); BASOPHIL # 0.1 TH/MM3 (0-0.2); BASOPHIL % 0.3 % (0.0-2.0); EOSINOPHIL # 0.9 TH/MM3 (0-0.4); EOSINOPHIL % 4.3 % (0.0-4.0); HEMATOCRIT 23.5 % (39.0-51.0); LYMPH % 5.6 % (9.0-44.0); LYMPHOCYTE # 1.2 TH/MM3 (1.0-4.8); MEAN CELL VOLUME 86.2 FL (80.0-100.0); MEAN CORPUSCULAR HEMOGLOBIN 27.3 PG (27.0-34.0); MEAN CORPUSCULAR HGB CONC 31.7 % (32.0-36.0); MONO % 3.9 % (0.0-8.0); NEUT % 85.9 % (16.0-70.0); PLATELET COUNT 265 TH/MM3 (150-450); RED BLOOD COUNT 2.73 MIL/MM3 (4.50-5.90); RED CELL DISTRIBUTION WIDTH 15.2 % (11.6-17.2); WHITE BLOOD COUNT 21.7 TH/MM3 (4.0-11.0)
[2016-09-11 05:01] LABS: HEMO FLAGS AUTO DIFF
--- NOTE | 2016-09-11 05:20 | RADRPT ---
EXAM DATE/TIME: 09/11/2016 04:04 [facility] COMPARISON: CHEST SINGLE AP, September 10, 2016, 21:16. INDICATIONS : Respiratory failure. MEDICAL HISTORY : Cardiovascular disease. SURGICAL HISTORY : CABG. ENCOUNTER: Subsequent ACUITY: 2 weeks PAIN SCORE: Non-responsive. LOCATION: chest FINDINGS: Single AP view of the chest. Endotracheal tube, nasogastric tube, left IJ central venous catheter rem ain in place. Persistent severe bilateral pulmonary consolidation. No evidence of pleural effusion or pneumothorax. CONCLUSION: No significant interval change in persistent bilateral severe pulmonary consolidation with upper lung predominance. Adolfo Yusuf MD on September 11, 2016 at 5:14 Board Certified Radiologist. This report was verified electronically.
[2016-09-11 05:36] LABS: CALCIUM-PROTEIN CORRECTED 7.7 MG/DL (8.5-10.1); MAGNESIUM 2.4 MG/DL (1.5-2.5); TOTAL BILIRUBIN ADULT 2.4 MG/DL (0.2-1.0)
[2016-09-11 05:45] LABS: BANDS 11 % (0-6); EOSINOPHILS 4 % (0-4); METAMYELOCYTES 3 % (0-1); MYELOCYTES 1 % (0-0); NEUTROPHIL # MANUAL DIFF 18.2 TH/MM3 (1.8-7.7); POLYS (SEG NEUTROPHILS) 69 % (16-70); WBC DIFF SAMPLE 100
[2016-09-11 05:46] LABS: KERATOCYTES OCC (NORMAL); PLATELET ESTIMATE SMEAR NORMAL (NORMAL); PLATELET MORPHOLOGY NORMAL (NORMAL); SCAN/DIFF FINAL DIFF MANUAL
[2016-09-11] MEDS: ICU - POTASSIUM CHLORIDE/AQUEOUS SOLN 40 MEQ/100 ML IVPB IV PRN (05:57)
[2016-09-11] MEDS: AMANTADINE HCL SOLN 100 MG/10 ML UDC PO SCH ×2 (05:58→11:56)
[2016-09-11 07:33] LABS: BLOOD GAS BASE EXCESS 0.6 mmol/L (-2-2); BLOOD GAS CARBOXYHEMOGLOBIN 1.4 % (0-4); BLOOD GAS HCO3 26 mmol/L (22-26); BLOOD GAS METHEMOGLOBIN 0.7 % (0-2); BLOOD GAS O2 HGB SATURATION 90 % (90-100); BLOOD GAS OXYGEN CONTENT 9.5 Vol % (12.0-20.0); BLOOD GAS PCO2 49 mmHg (38-42); BLOOD GAS PO2 68 mmHg (61-120); BLOOD GAS TOTAL HGB 7.5 G/DL (12.0-16.0); CRITICAL VALUE NO; OXYGEN DEVICE VENTILATOR; TEMP CORR TO 98.6
[2016-09-11 07:34] LABS: DRAW SITE ART LINE; FIO2 100 %; STAT NO; ULNAR PULSE PRESENT
[2016-09-11] MEDS: CHLORHEXIDINE 0.12% (ORAL KIT) 15 ML CUP MT SCH ×2 (08:19→20:00)
[2016-09-11] MEDS: SODIUM CHLORIDE 0.9% FLUSH 10 ML FLUSH IVF PRN (08:20)
[2016-09-11] MEDS: SODIUM CHLORIDE 0.9% FLUSH 10 ML FLUSH IVF SCH (08:20)
[2016-09-11] MEDS: SODIUM CHLORIDE 0.9% FLUSH 5 ML FLUSH IVF SCH ×2 (08:21→20:00)
[2016-09-11] MEDS: SODIUM CHLOR 0.9% IV SCH (08:21)
[2016-09-11] MEDS: PANTOPRAZOLE SODIUM 40 MG VIAL IVP SCH (08:21)
[2016-09-11] MEDS: NOREPINEPHRINE IV SCH (08:21)
[2016-09-11] MEDS: LACTULOSE SYRUP 20 GM/30 ML CUP PO SCH (08:23)
[2016-09-11] MEDS: DOCUSATE SODIUM 50 MG/SENNA 8.6 MG TAB PO SCH ×2 (08:23→21:07)
[2016-09-11] MEDS: 3% SALINE INJ 500 ML IV SCH (08:25)
[2016-09-11] MEDS: levETIRAcetam INJ 1,500 MG in SODIUM CHLORIDE 0.9% INJ 100 ML IV SCH ×2 (08:25→21:08)
[2016-09-11] MEDS ORDERED: PHARMACY ORDERED LAB ONE (08:45)
[2016-09-11] MEDS ORDERED: ATROPINE SULFATE 1 MG/ML VIAL ONE (10:03)
[2016-09-11] MEDS ORDERED: EPINEPHrine HCL (1:10,000) 1 MG/10 ML SYRINGE ONE (10:06)
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
[2016-09-11] MEDS: CISATRACURIUM INJ 100 MG in SODIUM CHLOR 0.9% 250 ML INJ 240 ML IV SCH (10:58)
[2016-09-11] MEDS: EPOPROSTENOL NEB SOLUTION 20 NG/KG/MIN 100 ML NEB SCH ×4 (10:58→21:11)
[2016-09-11] MEDS: LEVOFLOXACIN 750 MG PREMIX INJ 150 ML IV SCH (12:11)
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
[2016-09-11] MEDS ORDERED: CALCIUM GLUCONATE INJ 2 GM in DEXTROSE 5% IN WATER 100ML INJ 100 ML IV ONE ×2 (16:00)
--- NOTE | 2016-09-11 16:42 | HHI.PR ---
Subjective Remarks hemodynamically decompensated this am in vent needs and now on a paralytic. Objective Vital Signs Date Time Temp Pulse Resp B/P Pulse Ox O2 Delivery O2 Flow Rate FiO2 09/11/16 16:09 96 70 09/11/16 16:00 98.5 120 20 106/76 96 123/81 09/11/16 16:00 120 09/11/16 16:00 100 09/11/16 14:00 110 09/11/16 13:22 92 70 09/11/16 12:00 110 09/11/16 12:00 98.2 110 20 122/79 91 122/77 09/11/16 12:00 100 09/11/16 10:00 94 100 09/11/16 10:00 70 09/11/16 08:00 97.6 90 28 88/62 91 103/65 09/11/16 08:00 100 09/11/16 08:00 90 09/11/16 07:19 90 100 09/11/16 07:00 91 Mechanical Ventilator 100 09/11/16 06:14 89 100 09/11/16 06:00 97 09/11/16 04:00 100 09/11/16 04:00 98 09/11/16 04:00 97.2 97 18 124/70 91 09/11/16 03:10 90 100 09/11/16 02:00 98 09/11/16 00:00 97.5 98 18 120/66 92 09/11/16 00:00 100 09/11/16 00:00 98 09/10/16 23:40 93 100 09/10/16 22:00 118 09/10/16 20:00 85 09/10/16 20:00 101.5 118 42 98/64 95 09/10/16 20:00 118 09/10/16 19:39 95 85 09/10/16 19:00 Mechanical Ventilator 85 09/10/16 18:00 91 I/O 09/10/16 09/10/16 09/10/16 09/11/16 09/11/16 09/11/16 07:00 15:00 23:00 07:00 15:00 23:00 Intake Total 1537 ml 1758 ml 3742 ml 1612 ml 2017 ml Output Total 1300 ml 850 ml 750 ml 1350 ml 1100 ml Balance 237 ml 908 ml 2992 ml 262 ml 917 ml IV Total 1176 ml 1318 ml 2516 ml 1073 ml 1687 ml Tube Feeding 361 ml 440 ml 877 ml 357 ml 330 ml Lipid 349 ml 182 ml Output Urine Total 1300 ml 850 ml 750 ml 1350 ml 1100 ml Stool Total 0 ml 0 ml 0 ml 0 ml 0 ml Tube Feeding Residual Discard 0 ml 0 ml 0 ml Result Diagram: 09/11/16 0440 09/11/16 0440 Assessment and Plan Assessment and Plan sdh right sz -check pht level keep near 10 cont cerebyx may need to increase dose cont vimpat and keppra check eeg in am and mri pending was not stable to do as of yet Dr Chris in am. Cristal Odonnell MD Sep 11, 2016 16:42
--- NOTE | 2016-09-11 17:03 | HHI.IDPN ---
Subjective Subjective Remarks doing poorly PEA this am on pressure controll, PEEP 16, FiO2 70% On pressors, levaphed 20 (down from 30) no fever since last night, WBC up to 21 K he is now sedated and paralyzed Antibiotics vanco levaquine cefepime micafungin Lines L IJ TLC Allergies: Coded Allergies: No Known Allergies (Unverified , 09/03/16) Objective . Vital Signs Date Time Temp Pulse Resp B/P Pulse Ox O2 Delivery O2 Flow Rate FiO2 09/11/16 16:09 96 70 09/11/16 16:00 98.5 120 20 106/76 96 123/81 09/11/16 16:00 120 09/11/16 16:00 100 09/11/16 14:00 110 09/11/16 13:22 92 70 09/11/16 12:00 110 09/11/16 12:00 98.2 110 20 122/79 91 122/77 09/11/16 12:00 100 09/11/16 10:00 94 100 09/11/16 10:00 70 09/11/16 08:00 97.6 90 28 88/62 91 103/65 09/11/16 08:00 100 09/11/16 08:00 90 09/11/16 07:19 90 100 09/11/16 07:00 91 Mechanical Ventilator 100 09/11/16 06:14 89 100 09/11/16 06:00 97 09/11/16 04:00 100 09/11/16 04:00 98 09/11/16 04:00 97.2 97 18 124/70 91 09/11/16 03:10 90 100 09/11/16 02:00 98 09/11/16 00:00 97.5 98 18 120/66 92 09/11/16 00:00 100 09/11/16 00:00 98 09/10/16 23:40 93 100 09/10/16 22:00 118 09/10/16 20:00 85 09/10/16 20:00 101.5 118 42 98/64 95 09/10/16 20:00 118 09/10/16 19:39 95 85 09/10/16 19:00 Mechanical Ventilator 85 09/10/16 18:00 91 09/10/16 09/10/16 09/11/16 15:00 23:00 07:00 Intake Total 1758 ml 3742 ml 1612 ml Output Total 850 ml 750 ml 1350 ml Balance 908 ml 2992 ml 262 ml IV Total 1318 ml 2516 ml 1073 ml Tube Feeding 440 ml 877 ml 357 ml Lipid 349 ml 182 ml Output Urine Total 850 ml 750 ml 1350 ml Stool Total 0 ml 0 ml 0 ml Tube Feeding Residual Discard 0 ml 0 ml . Laboratory Tests Test 09/10/16 09/11/16 03:30 04:40 White Blood Count 18.2 TH/MM3 21.7 TH/MM3 Red Blood Count 2.76 MIL/MM3 2.73 MIL/MM3 Hemoglobin 7.8 GM/DL 7.5 GM/DL Hematocrit 23.4 % 23.5 % Mean Corpuscular Volume 84.8 FL 86.2 FL Mean Corpuscular Hemoglobin 28.2 PG 27.3 PG Mean Corpuscular Hemoglobin 33.3 % 31.7 % Concent Red Cell Distribution Width 14.8 % 15.2 % Platelet Count 354 TH/MM3 265 TH/MM3 Mean Platelet Volume 8.9 FL 9.6 FL Neutrophils (%) (Auto) 82.5 % 85.9 % Lymphocytes (%) (Auto) 7.5 % 5.6 % Monocytes (%) (Auto) 5.3 % 3.9 % Eosinophils (%) (Auto) 4.3 % 4.3 % Basophils (%) (Auto) 0.4 % 0.3 % Neutrophils # (Auto) 15.0 TH/MM3 18.7 TH/MM3 Lymphocytes # (Auto) 1.4 TH/MM3 1.2 TH/MM3 Monocytes # (Auto) 1.0 TH/MM3 0.9 TH/MM3 Eosinophils # (Auto) 0.8 TH/MM3 0.9 TH/MM3 Basophils # (Auto) 0.1 TH/MM3 0.1 TH/MM3 CBC Comment AUTO DIFF AUTO DIFF Differential Total Cells 100 100 Counted Neutrophils % (Manual) 67 % 69 % Band Neutrophils % 15 % 11 % Lymphocytes % 4 % 12 % Monocytes % 6 % Eosinophils % 5 % 4 % Neutrophils # (Manual) 15.3 TH/MM3 18.2 TH/MM3 Metamyelocytes 1 % 3 % Myelocytes 1 % 1 % Nucleated Red Blood Cells 2 /100 WBC Differential Comment FINAL DIFF FINAL DIFF MANUAL MANUAL Plasma Cells 1 % Platelet Estimate NORMAL NORMAL Platelet Morphology Comment ENLARGED NORMAL Keratocytes OCC Laboratory Tests Test 09/10/16 09/11/16 03:30 04:40 Sodium Level 152 MEQ/L 153 MEQ/L Potassium Level 3.4 MEQ/L 3.0 MEQ/L Chloride Level 117 MEQ/L 117 MEQ/L Carbon Dioxide Level 30.2 MEQ/L 29.0 MEQ/L Anion Gap 5 MEQ/L 7 MEQ/L Blood Urea Nitrogen 15 MG/DL 19 MG/DL Creatinine 0.51 MG/DL 0.63 MG/DL Estimat Glomerular Filtration 165 ML/MIN 129 ML/MIN Rate Random Glucose 128 MG/DL 156 MG/DL Calcium Level 7.4 MG/DL 6.9 MG/DL Protein Corrected Calcium 8.2 MG/DL 7.7 MG/DL Total Bilirubin 2.1 MG/DL 2.4 MG/DL Aspartate Amino Transf 43 U/L 35 U/L (AST/SGOT) Alanine Aminotransferase 55 U/L 48 U/L (ALT/SGPT) Alkaline Phosphatase 389 U/L 410 U/L Total Protein 5.7 GM/DL 5.5 GM/DL Albumin 1.1 GM/DL 1.0 GM/DL Phosphorus Level 2.1 MG/DL Magnesium Level 2.4 MG/DL Microbiology Date/Time Procedure Status Source Growth 09/11/16 00:20 Aerobic Blood Culture Received Blood Peripheral Pending 09/11/16 00:20 Anaerobic Blood Culture Received Blood Peripheral Pending 09/11/16 00:25 Gram Stain - Final Resulted Sputum Endotracheal 09/11/16 00:25 Sputum Culture Resulted Sputum Endotracheal Pending 09/11/16 00:35 Aerobic Blood Culture Received Blood Peripheral Pending 09/11/16 00:35 Anaerobic Blood Culture Received Blood Peripheral Pending 09/11/16 04:40 Urine Culture Received Urine Catheterized Urine Pending Imaging Last Impressions Chest X-Ray 09/11/16 0600 Signed Impressions: Service Date/Time: Sunday, September 11, 2016 04:04 - CONCLUSION: No significant interval change in persistent bilateral severe pulmonary consolidation with upper lung predominance. Adolfo Yusuf MD Abdomen X-Ray 09/08/16 0000 Signed Impressions: Service Date/Time: August 19:19 - CONCLUSION: Orogastric tube tip is in the lower esophagus a couple centimeters above the GE junction. It can be advanced 10-15 cm. Gonzales Harper MD Head CT 09/06/16 Signed Impressions: Service Date/Time: Tuesday, September 06, 2016 12:16 - CONCLUSION: 1. Stable 1.7 cm left frontal intraparenchymal hemorrhage, tiny areas of subarachnoid hemorrhage within the left high parietal region and right tentorial subdural hematoma. Minimal subdural hematoma is also noted within the right posterior high parietal region measuring 4 mm in thickness. 2. Minimal stable subfalcine herniation to the left measuring 3 mm. Ryley Zelaya MD Lower Extremity Ultrasound 09/04/16 Signed Impressions: Service Date/Time: Sunday, September 04, 2016 16:01 - CONCLUSION: No DVT of either lower extremity. Gonzales Harper MD Abdomen Ultrasound 09/04/16 Signed Impressions: Service Date/Time: Sunday, September 04, 2016 15:40 - CONCLUSION: 1. Minimal amount of abdominal fluid about the liver and spleen. Small bilateral pleural effusions. 2. Sludge within the gallbladder. No echogenic stones seen. 3. The superior/inferior dimension of the liver is above normal limits, but there is not a hepatomegaly due to Alethea's lobe configuration. Josh Hobbs MD Pelvis X-Ray 08/28/161038 Signed Impressions: Service Date/Time: Sunday, August 28, 2016 10:31 - CONCLUSION: Unremarkable examination of the pelvis. Dakota Pack MD Maxillofacial CT 08/28/161038 Signed Impressions: Service Date/Time: Sunday, August 28, 2016 11:00 - CONCLUSION: No evidence of fracture. Adolfo Yusuf MD Cervical Spine CT 08/28/161038 Signed Impressions: Service Date/Time: Sunday, August 28, 2016 11:00 - CONCLUSION: No evidence of fracture. Multilevel degenerative findings. Adolfo Yusuf MD Abdomen/Pelvis CT 08/28/169 Signed Impressions: Service Date/Time: Sunday, August 28, 2016 11:06 - CONCLUSION: No acute findings in the abdomen and pelvis. Adolfo Yusuf MD Chest CT 08/28/16 Signed Impressions: Service Date/Time: Sunday, August 28, 2016 11:06 - CONCLUSION: Dependent opacity in the lungs. No other acute findings in the chest. Adolfo Yusuf MD Physical Exam CONSTITUTIONAL/GENERAL: This is an adequately nourished patient, heavily sedated , int'd on vent TUBES/LINES/DRAINS: L IJ TLC wo e/o infx SKIN: No jaundice, rashes, or lesions. Skin temperature appropriate. Not diaphoretic. Anasarca HEAD: Buldging R temporal and parietal area sp craniectomy R paietal incision is dry and clean, well approximated EYES: Pupils equal and constricted. + scleral icterus. No injection or drainage. Fundi not examined. ENT: Hearing not tested. Nose without bleeding or purulent drainage. Orally intubated NECK: Trachea midline. Supple, nontender. CARDIOVASCULAR: Regular tachycardia without murmurs, gallops, or rubs. + JVD. Peripheral pulses symmetric. RESPIRATORY/CHEST: Very tachypneic Symmetric respirations. Diffuse rhonchi to auscultation b/l. i. Puffy chest especially on the R GASTROINTESTINAL: Abdomen tight, distended No reaction to palpation . No hepato-splenomegaly, or palpable masses. No guarding. Bowel sounds present. GENITOURINARY: Without palpable bladder distension. Early catheter in place with clear light yellow urinme, large amount MUSCULOSKELETAL: Extremities without clubbing, cyanosis, 3-4+ edema. No joint tenderness or effusion noted. No mottling or clubbing. LYMPHATICS: No palpable cervical or supraclavicular adenopathy. NEUROLOGICAL: sedated and paralyzed; PSYCHIATRIC:unable to assess Assessment & Plan Remarks TBI Status post evacuation of subdural hemorrhage. Acute VDRF with worening resp status, very unstable from resp stand point Pneumonia due to Klebsiella, enterobacter, MSSA Bacteremia due to coag neg staph, diff morphologies, doubt clin significance fever, leukocytosis: persistent , worse Unstable, worsening clinically, critically ill Poor prognosis RECOMMENDATIONS: 1. Cont Levaquin. 2. Continue vancomycin. 3. cont cefepime 4. cont micafungin 5. blood clx, sputum clx Poor prognosis dw RN dw family @ b/s dw Alessandra Ramirez MD Sep 11, 2016 17:03
[2016-09-11] MEDS: NOREPINEPHRINE INJ 16 MG in SODIUM CHLOR 0.9% 250 ML INJ 234 ML IV SCH (21:12)
[2016-09-12] VITALS (18 sets, daily range): BP systolic 110–144; BP diastolic 71–89; PULSE 96–127; RESP 20–21; TEMP 96–98.3; O2SAT 88–98
[2016-09-12] MEDS: MICAFUNGIN INJ 150 MG in SODIUM CHLORIDE 0.9% INJ 100 ML IV SCH (00:18)
[2016-09-12] MEDS: VANCOMYCIN 1,000 MG/NS 250 ML IV SCH ×6 (00:20→17:38)
[2016-09-12] MEDS: ARTIFICIAL TEARS OPTH SOLN 15 ML BTL EACH EYE SCH ×3 (02:37→17:39)
[2016-09-12] MEDS: CHLORHEXIDINE GLUCONATE 2 % 1 PACK (2 CLOTHS) TOP SCH (04:00)
[2016-09-12] MEDS: FUROSEMIDE 20 MG/2 ML VIAL IV PUSH SCH ×3 (04:59→17:38)
[2016-09-12] MEDS: METOCLOPRAMIDE HCL 10 MG/2 ML VIAL IV PUSH SCH ×3 (05:00→21:17)
[2016-09-12] MEDS: LACOSAMIDE INJ 50 MG in SODIUM CHLORIDE 0.9% INJ 100 ML IV SCH ×3 (05:00→20:56)
[2016-09-12] MEDS: FOSPHENYTOIN SODIUM 100 MG PE/2 ML VIAL IV SCH ×3 (05:00→17:39)
[2016-09-12] MEDS: AMANTADINE HCL SOLN 100 MG/10 ML UDC PO SCH ×2 (06:50→11:43)
[2016-09-12] MEDS: CEFEPIME INJ 2,000 MG in SODIUM CHLORIDE 0.9% INJ 100 ML IV SCH ×2 (08:53→17:38)
[2016-09-12] MEDS: fentaNYL DRIP 250 ML IV SCH ×2 (08:54→18:23)
[2016-09-12] MEDS: CHLORHEXIDINE 0.12% (ORAL KIT) 15 ML CUP MT SCH ×2 (08:55→20:00)
[2016-09-12] MEDS: SODIUM CHLORIDE 0.9% FLUSH 5 ML FLUSH IVF SCH ×2 (09:00→20:00)
[2016-09-12] MEDS: SODIUM CHLORIDE 0.9% FLUSH 10 ML FLUSH IVF SCH (09:00)
[2016-09-12] MEDS: levETIRAcetam INJ 1,500 MG in SODIUM CHLORIDE 0.9% INJ 100 ML IV SCH ×2 (09:33→20:56)
[2016-09-12] MEDS: PANTOPRAZOLE SODIUM 40 MG VIAL IVP SCH (09:36)
[2016-09-12] MEDS: LACTULOSE SYRUP 20 GM/30 ML CUP PO SCH (09:36)
[2016-09-12] MEDS: DOCUSATE SODIUM 50 MG/SENNA 8.6 MG TAB PO SCH ×2 (09:36→20:55)
--- NOTE | 2016-09-12 10:35 | HHI.HCPN ---
Reason for visit a. To assist with evaluation and management of symptoms including: dyspnea, encephalopathy, seizures b. To assist medical decision maker(s) with: better understanding of current medical conditions; weighing benefits/burdens of medical treatment options; making medical treatment decisions. Subjective/Interval History Pt seen to follow up w family re goals of treatment. Additional family plans to arrive over the weekend with discussions regarding possible withdrawal of life support early this week pending clinical assessments. + bradycardia yesterday requiring atropine. Worsening pulmonary status over the weekend,CXR= persistent bilateral severe pulmonary consolidation with upper lung predominance. Critical care added flolan nebulized, +probable ARDS, req. increased vent settings + paralytic Nimbex added. +pressure control mode PIP+20 , PEEP+16, rate 20, FiO2 100%. No change in neuro assess (though neuromuscular blockade has been added) Repeat EEG ordered today per Neuro, repeat MRI when stable enough. Repeat blood culture 09/11= Gram Variable Jignesh, Gram Positive Cocci. Repeat sputum pending. No new labs today. H&H per yesterday's labs slowly trending down 7.5/23.5. WBC 21.7. Patient afebrile. Urine output adequate. Renal function remains WNL. Patient seen in room no visitors present. Nursing to notify me when family arrives. Nonresponsive to my exam. No gag when nurse suctioned via ET tube. On fentanyl 250 mics/ hr, Versed 10 mg /hr, Nimbex 2 mics/kg/min, norepinephrine 5 mics/min + Also on Flolan. + Significant generalized edema to entire body. D/w critical care, trauma surgery, RN. . Family/friend interactions 1400- requested meeting w daughter, son at 2pm. Met w them at length at bedside. Review current conditions, medications, treatments, recent diagnostics , respiratory changes requiring neuromuscular blockade which further limit neuro assessment. They indicate they are struggling to make a decision to transition to comfort measures versus continued aggressive course as they would like additional information regarding neurological status, they were hopeful to obtain follow-up MRI as per neuro for additional prognostication, they were also hoping for patient to be lightened to again obtain clinical assessment of neurological function however they understand his current sedatives and condition did not allow for lightening of sedation. Daughter and son will continue to discuss amongst family, as well as other providers regarding conditions and overall prognosis. No further decisions made today, still considering transition to comfort however not certain at this time awaiting additional input from neurology as well as critical care. I did call Dr. Chris' s office, he is already left the office for a day, voicemail left on cell number. . Advance Directives Living Will: Never completed Health Care Surrogate: Never completed Durable Power of Road Consultant: Never completed Objective Vital Signs Date Time Temp Pulse Resp B/P Pulse Ox O2 Delivery O2 Flow Rate FiO2 09/12/16 07:40 95 60 09/12/16 06:00 109 09/12/16 04:00 102 09/12/16 04:00 97.1 105 20 129/85 97 140/89 09/12/16 04:00 60 09/12/16 03:46 96 60 09/12/16 02:00 101 09/12/16 00:00 60 09/12/16 00:00 105 09/12/16 00:00 97.1 105 20 112/76 98 122/71 09/11/16 23:39 98 60 09/11/16 22:00 105 09/11/16 20:00 105 09/11/16 20:00 60 09/11/16 20:00 97.5 107 20 100/75 96 122/73 09/11/16 19:47 96 60 09/11/16 19:00 97 Mechanical Ventilator 60 09/11/16 18:00 110 09/11/16 16:09 96 70 09/11/16 16:00 98.5 120 20 106/76 96 123/81 09/11/16 16:00 120 09/11/16 16:00 100 09/11/16 14:00 110 09/11/16 13:22 92 70 09/11/16 12:00 110 09/11/16 12:00 98.2 110 20 122/79 91 122/77 09/11/16 12:00 100 Intake & Output 09/12/16 09/12/16 07:00 19:00 Intake Total 4810 ml Output Total 1425 ml Balance 3385 ml IV Total 3738 ml Tube Feeding 1072 ml Output Urine Total 1425 ml Stool Total 0 ml Physical Exam CONSTITUTIONAL/GENERAL: This is an adequately nourished patient, in no apparent distress, nonresponsive on mech vent. TUBES/LINES/DRAINS:central line, ETT, OGT, Early, SCDs, soft restraints BUE, arterial line HEAD: healing incision rt head, sommer have been removed CARDIOVASCULAR: Regular rate and rhythm , no murmurs.+ generalized edema to entire body: Trunk, extremities RESPIRATORY/CHEST: Symmetric, unlabored respirations via mech vent. No Spontaneous respirations over vent rate 20. Course rhonchi throughout, + Crackles GASTROINTESTINAL: Abdomen soft, flat, unable to determine tenderness, mildly distended. Hypoactive bowel sounds. GENITOURINARY: Without palpable bladder distension. Early catheter in place. Clear dark yellow urine. NEUROLOGICAL: sedated/nonresponsive. no withdrawal to pain stimuli. No eye opening. pupils: Left slightly larger than right 3mm/2mm, questionable reaction to light. PSYCHIATRIC: sedated/limited assess due to condition. . Diagnostic Tests Laboratory Laboratory Tests Test 09/10/16 09/10/16 09/10/16 09/11/16 03:30 08:30 09:45 04:40 White Blood Count 18.2 TH/MM3 21.7 TH/MM3 (4.0-11.0) (4.0-11.0) Red Blood Count 2.76 MIL/MM3 2.73 MIL/MM3 (4.50-5.90) (4.50-5.90) Hemoglobin 7.8 GM/DL 7.5 GM/DL (13.0-17.0) (13.0-17.0) Hematocrit 23.4 % 23.5 % (39.0-51.0) (39.0-51.0) Mean Corpuscular Volume 84.8 FL 86.2 FL (80.0-100.0) (80.0-100.0) Mean Corpuscular Hemoglobin 28.2 PG 27.3 PG (27.0-34.0) (27.0-34.0) Mean Corpuscular Hemoglobin 33.3 % 31.7 % Concent (32.0-36.0) (32.0-36.0) Red Cell Distribution Width 14.8 % 15.2 % (11.6-17.2) (11.6-17.2) Platelet Count 354 TH/MM3 265 TH/MM3 (150-450) (150-450) Mean Platelet Volume 8.9 FL 9.6 FL (7.0-11.0) (7.0-11.0) Neutrophils (%) (Auto) 82.5 % 85.9 % (16.0-70.0) (16.0-70.0) Lymphocytes (%) (Auto) 7.5 % 5.6 % (9.0-44.0) (9.0-44.0) Monocytes (%) (Auto) 5.3 % (0.0-8.0) 3.9 % (0.0-8.0) Eosinophils (%) (Auto) 4.3 % (0.0-4.0) 4.3 % (0.0-4.0) Basophils (%) (Auto) 0.4 % (0.0-2.0) 0.3 % (0.0-2.0) Neutrophils # (Auto) 15.0 TH/MM3 18.7 TH/MM3 (1.8-7.7) (1.8-7.7) Lymphocytes # (Auto) 1.4 TH/MM3 1.2 TH/MM3 (1.0-4.8) (1.0-4.8) Monocytes # (Auto) 1.0 TH/MM3 0.9 TH/MM3 (0-0.9) (0-0.9) Eosinophils # (Auto) 0.8 TH/MM3 0.9 TH/MM3 (0-0.4) (0-0.4) Basophils # (Auto) 0.1 TH/MM3 0.1 TH/MM3 (0-0.2) (0-0.2) CBC Comment AUTO DIFF AUTO DIFF Differential Total Cells 100 100 Counted Neutrophils % (Manual) 67 % (16-70) 69 % (16-70) Band Neutrophils % 15 % (0-6) 11 % (0-6) Lymphocytes % 4 % (9-44) 12 % (9-44) Monocytes % 6 % (0-8) Eosinophils % 5 % (0-4) 4 % (0-4) Neutrophils # (Manual) 15.3 TH/MM3 18.2 TH/MM3 (1.8-7.7) (1.8-7.7) Metamyelocytes 1 % (0-1) 3 % (0-1) Myelocytes 1 % (0-0) 1 % (0-0) Nucleated Red Blood Cells 2 /100 WBC (0-0) Differential Comment FINAL DIFF FINAL DIFF MANUAL MANUAL Plasma Cells 1 % (0-0) Platelet Estimate NORMAL NORMAL (NORMAL) (NORMAL) Platelet Morphology Comment ENLARGED NORMAL (NORMAL) (NORMAL) Sodium Level 152 MEQ/L 153 MEQ/L (136-145) (136-145) Potassium Level 3.4 MEQ/L 3.0 MEQ/L (3.5-5.1) (3.5-5.1) Chloride Level 117 MEQ/L 117 MEQ/L (98-107) (98-107) Carbon Dioxide Level 30.2 MEQ/L 29.0 MEQ/L (21.0-32.0) (21.0-32.0) Anion Gap 5 MEQ/L (5-15) 7 MEQ/L (5-15) Blood Urea Nitrogen 15 MG/DL (7-18) 19 MG/DL (7-18) Creatinine 0.51 MG/DL 0.63 MG/DL (0.60-1.30) (0.60-1.30) Estimat Glomerular Filtration 165 ML/MIN 129 ML/MIN Rate (>89) (>89) Random Glucose 128 MG/DL 156 MG/DL (74-106) (74-106) Calcium Level 7.4 MG/DL 6.9 MG/DL (8.5-10.1) (8.5-10.1) Protein Corrected Calcium 8.2 MG/DL 7.7 MG/DL (8.5-10.1) (8.5-10.1) Total Bilirubin 2.1 MG/DL 2.4 MG/DL (0.2-1.0) (0.2-1.0) Aspartate Amino Transf 43 U/L (15-37) 35 U/L (15-37) (AST/SGOT) Alanine Aminotransferase 55 U/L (12-78) 48 U/L (12-78) (ALT/SGPT) Alkaline Phosphatase 389 U/L 410 U/L (45-117) (45-117) Total Protein 5.7 GM/DL 5.5 GM/DL (6.4-8.2) (6.4-8.2) Albumin 1.1 GM/DL 1.0 GM/DL (3.4-5.0) (3.4-5.0) Phenytoin (Dilantin) Level 4.8 MCG/ML (10.0-20.0) Vancomycin Level Trough 9.6 MCG/ML (5.0-10.0) Blood Gas Puncture Site ART LINE Blood Gas Patient Temperature 98.6 Blood Gas HCO3 27 mmol/L (22-26) Blood Gas Base Excess 2.6 mmol/L (-2-2) Blood Gas Oxygen Saturation 97 % (90-100) Arterial Blood pH 7.39 (7.380-7.420) Arterial Blood Partial 46 mmHg (38-42) Pressure CO2 Arterial Blood Partial 145 mmHg Pressure O2 (61-120) Arterial Blood Oxygen Content 11.0 Vol % (12.0-20.0) Arterial Blood 1.0 % (0-4) Carboxyhemoglobin Arterial Blood Methemoglobin 0.9 % (0-2) Blood Gas Hemoglobin 7.8 G/DL (12.0-16.0) Oxygen Delivery Device VENTILATOR Blood Gas Ventilator Setting PRVC 18/500/+12/1.1 Blood Gas Inspired Oxygen 100 % Keratocytes OCC (NORMAL) Phosphorus Level 2.1 MG/DL (2.5-4.9) Magnesium Level 2.4 MG/DL (1.5-2.5) Test 09/11/16 09/11/16 07:28 08:45 Blood Gas Puncture Site ART LINE Blood Gas Patient Temperature 98.6 Blood Gas HCO3 26 mmol/L (22-26) Blood Gas Base Excess 0.6 mmol/L (-2-2) Blood Gas Oxygen Saturation 90 % (90-100) Arterial Blood pH 7.34 (7.380-7.420) Arterial Blood Partial 49 mmHg (38-42) Pressure CO2 Arterial Blood Partial 68 mmHg Pressure O2 (61-120) Arterial Blood Oxygen Content 9.5 Vol % (12.0-20.0) Arterial Blood 1.4 % (0-4) Carboxyhemoglobin Arterial Blood Methemoglobin 0.7 % (0-2) Blood Gas Hemoglobin 7.5 G/DL (12.0-16.0) Oxygen Delivery Device VENTILATOR Blood Gas Ventilator Setting Blood Gas Inspired Oxygen 100 % Vancomycin Level Trough 18.4 MCG/ML (5.0-10.0) Result Diagram: 09/11/16 0440 09/11/16 0440 Microbiology Microbiology Date/Time Procedure Status Source Growth 09/11/16 00:20 Aerobic Blood Culture - Preliminary Resulted Blood Peripheral Gram Variable Jignesh Gram Positive Cocci 09/11/16 00:20 Anaerobic Blood Culture Resulted Blood Peripheral Pending 09/11/16 00:25 Gram Stain - Final Resulted Sputum Endotracheal 09/11/16 00:25 Sputum Culture Resulted Sputum Endotracheal Pending 09/11/16 00:35 Aerobic Blood Culture Worksheet Blood Peripheral Pending 09/11/16 00:35 Anaerobic Blood Culture Worksheet Blood Peripheral Pending 09/11/16 04:40 Urine Culture Received Urine Catheterized Urine Pending Imaging Last Impressions Chest X-Ray 09/11/16 0600 Signed Impressions: Service Date/Time: Sunday, September 11, 2016 04:04 - CONCLUSION: No significant interval change in persistent bilateral severe pulmonary consolidation with upper lung predominance. Adolfo Yusuf MD Abdomen X-Ray 09/08/16 0000 Signed Impressions: Service Date/Time: August 19:19 - CONCLUSION: Orogastric tube tip is in the lower esophagus a couple centimeters above the GE junction. It can be advanced 10-15 cm. Gonzales Harper MD Head CT 09/06/16 0000 Signed Impressions: Service Date/Time: Tuesday, September 06, 2016 12:16 - CONCLUSION: 1. Stable 1.7 cm left frontal intraparenchymal hemorrhage, tiny areas of subarachnoid hemorrhage within the left high parietal region and right tentorial subdural hematoma. Minimal subdural hematoma is also noted within the right posterior high parietal region measuring 4 mm in thickness. 2. Minimal stable subfalcine herniation to the left measuring 3 mm. Ryley Zelaya MD Lower Extremity Ultrasound 09/04/16 0000 Signed Impressions: Service Date/Time: Sunday, September 04, 2016 16:01 - CONCLUSION: No DVT of either lower extremity. Gonzales Harper MD Abdomen Ultrasound 09/04/16 0000 Signed Impressions: Service Date/Time: Sunday, September 04, 2016 15:40 - CONCLUSION: 1. Minimal amount of abdominal fluid about the liver and spleen. Small bilateral pleural effusions. 2. Sludge within the gallbladder. No echogenic stones seen. 3. The superior/inferior dimension of the liver is above normal limits, but there is not a hepatomegaly due to Alethea's lobe configuration. Josh Hobbs MD Pelvis X-Ray 08/28/16 1039 Signed Impressions: Service Date/Time: Sunday, August 28, 2016 10:31 - CONCLUSION: Unremarkable examination of the pelvis. Dakota Pack MD Maxillofacial CT 08/28/16 1039 Signed Impressions: Service Date/Time: Sunday, August 28, 2016 11:00 - CONCLUSION: No evidence of fracture. Adolfo Yusuf MD Cervical Spine CT 08/28/16 1039 Signed Impressions: Service Date/Time: Sunday, August 28, 2016 11:00 - CONCLUSION: No evidence of fracture. Multilevel degenerative findings. Adolfo Yusuf MD Abdomen/Pelvis CT 08/28/16 1039 Signed Impressions: Service Date/Time: Sunday, August 28, 2016 11:06 - CONCLUSION: No acute findings in the abdomen and pelvis. Adolfo Yusuf MD Chest CT 08/28/16 0000 Signed Impressions: Service Date/Time: Sunday, August 28, 2016 11:06 - CONCLUSION: Dependent opacity in the lungs. No other acute findings in the chest. Adolfo Yusuf MD Procedures 08/28 Right frontotemporal parietal decompressive craniotomy with placement ICP monitor Assessment and Plan Disease Oriented Problem List: (1) Subdural hematoma Comment: s/p right frontotemporal parietal decompressive craniotomy 08/28 (2) Respiratory failure (3) Hypernatremia (4) Seizure (5) Serratia marcescens infection Comment: pneumonia Symptom Scale: (1) Dysphagia 0-10 Scale: Unable to quantify (2) Encephalopathy 0-10 Scale: Unable to quantify (3) Seizure 0-10 Scale: Unable to quantify Pertinent Non-Medical Issues Psychosocial:[place]oc[place]. to( second) since 2007. 2 adult children ( from 2st marriage) . daughter lives in [place], is ICU nurse. Son lives in [place], is a coast [employer] maritime pilot. 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 Pt just bought a home/ moved to [facility] 2 mos ago. Traveled to this area to [place]. Supported by multiple siblings Spiritual:Yazidi, family does not desire bosom presser support at this time Legal: per [place] statutes would be legal decision maker ( no living will or advanced directive). defers to pt 2 adult children (from prior marriage). Son wants daughter, who is an RN to act as primary proxy. They are all working together on decisions, supporting one another. Ethical issues impacting care: Important Contacts daughter Rita (pronounced "Meng") Ron [phone] serving as healthcare proxy ([place]) EMAIL: [email or web address] - ([place]) Son- Ashli Velasquez ([place]) . Prognosis This patient was admitted 08/28 with a severe traumatic brain injury requiring emergent evacuation by neurosurgery as a life-saving measure. He has remained in critical condition on mechanical vent. . Code Status: Alternative Code Plan * Legal decision maker: per [place] statutes would be legal decision maker ( no living will or advanced directive). defers to pt 2 adult children (from prior marriage). Son wants daughter, who is an RN to act as primary proxy. They are all working together on decisions, supporting one another. * ALT CODE - intub/shock/acls drugs * Family desires continued aggressive care including FULL CODE until daughter arrives over the weekend. Family would like to spend Father's Day with the patient. Anticipate transition to comfort focused care with withdrawal of life support early next week if no signs of clinical improvement as family has repeatedly stated the patient would not want tracheostomy/PEG tube placement or quality of life that did not provide him the ability to live the way he did prior to hospitalization. Plan for f/up meeting w family today 09/12/16 RE goals/possible withdrawal of life support 1400 -later met with family at bedside. Struggling to make a decision to transition to comfort measures versus continued aggressive course as they would like additional information regarding neurological status, they were hopeful to obtain follow-up MRI as per neuro for additional prognostication, they were also hoping for patient to be lightened to again obtain clinical assessment of neurological function however they understand his current sedatives and condition did not allow for lightening of sedation. Daughter and son will continue to discuss amongst family, as well as other providers regarding conditions and overall prognosis. No further decisions made today, still considering transition to comfort however not certain at this time awaiting additional input from neurology as well as critical care. I did call Dr. Chris' s office, he is already left the office for a day, voicemail left on cell number. Discussed with critical care, nurse. * SYMPTOMS: --encephalopathy- 2/2 severe TBI, SDH s/p emergent crani. Poor neuro response thus far. EEG severe slowing, + seizures, requiring multiple antiseizure medications. Most recent repeat EEG with no seizure activity identified. REpeat EEG pending today. REpeat MRI ordered-pending pt stable enough to obtain. now req. paralytic for ARDS, no gag, no withdrawal. -- dyspnea- intubated emergently for airway protection 2/2 severe TBI. + ARDS , worsening CXR over the weekend, req. increased ventilator support, + flolan, neuromuscular blockade -- seizures - managed per neurology, had recurrent sz despite keppra, Keppra increased, dilantin added, Vimpat added ; no seizure activity noted, repeat EEG ordered for today -- pain- no chronic pain syndromes. potential sources include bedbound status , recent invasive procedures / no sx pain currently / will cont to evaluate -- no new medication recommendations at this time. Palliative care will assist with orders if family elects to transition to comfort measures. * Palliative care will continue to follow during hospital course as condition evolves, to assist patient/decision-maker with understanding of medical conditions, weighing benefits/burdens of treatment options, for clarification of goals of treatment. Additionally will assist with any symptoms of palliative concern. . . Time Spent Total Floor Time (mins): 45 Attestation To help prompt me to consider important information that might be impacting today's encounter and assessment, information from prior notes written by myself or my colleagues may have been "brought forward" into today's note. My signature on this note, however, is an attestation that I personally performed the exam, history, and/or decision-making noted today, and, unless otherwise indicated, the interactions with patient, family, and staff as well as the review of records all occurred today. I also attest that the listed assessment and stated plan reflect my best clinical judgment today based on the combination of historical information, prior notes, and today's exam/ interactions. When time spent is documented, it refers only to time spent today by the signer, or if indicated, combined time spent today by collaborating physician/nurse practitioner. Corrine Arteaga Sep 12, 2016 10:35
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
[2016-09-12 11:36] LABS: HEMATOCRIT 23.5 % (39.0-51.0); MEAN CELL VOLUME 87.7 FL (80.0-100.0); MEAN CORPUSCULAR HEMOGLOBIN 27.6 PG (27.0-34.0); MEAN CORPUSCULAR HGB CONC 31.4 % (32.0-36.0); PLATELET COUNT 173 TH/MM3 (150-450); RED BLOOD COUNT 2.67 MIL/MM3 (4.50-5.90); RED CELL DISTRIBUTION WIDTH 15.8 % (11.6-17.2); REVIEW FLAG FINAL
[2016-09-12] MEDS: 3% SALINE INJ 500 ML IV SCH (11:44)
[2016-09-12] MEDS: EPOPROSTENOL NEB SOLUTION 20 NG/KG/MIN 100 ML NEB SCH ×4 (11:45→20:55)
[2016-09-12] MEDS: CISATRACURIUM INJ 100 MG in SODIUM CHLOR 0.9% 250 ML INJ 240 ML IV SCH (12:02)
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
[2016-09-12 12:37] LABS: BICARBONATE 26.1 MEQ/L (21.0-32.0); CALCIUM-PROTEIN CORRECTED 8.3 MG/DL (8.5-10.1); POTASSIUM 4.2 MEQ/L (3.5-5.1); TOTAL BILIRUBIN ADULT 2.2 MG/DL (0.2-1.0)
[2016-09-12] MEDS: LEVOFLOXACIN 750 MG PREMIX INJ 150 ML IV SCH (13:02)
[2016-09-12] MEDS: MIDAZOLAM 100 MG/ML INJ 100 ML IV SCH ×2 (13:03→22:23)
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
[2016-09-12] MEDS: NOREPINEPHRINE INJ 16 MG in SODIUM CHLOR 0.9% 250 ML INJ 234 ML IV SCH (18:22)
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
[2016-09-12] MEDS ORDERED: DEXTROSE 50% IN WATER 50 ML VIAL(D50) IV PUSH PRN (20:45)
[2016-09-13] VITALS (11 sets, daily range): BP systolic 109–166; BP diastolic 69–86; PULSE 99–127; RESP 20–32; TEMP 95–99.2; O2SAT 92–100
[2016-09-13] MEDS: INSULIN NovoLIN REGULAR SUPPLEMENTAL SCALE SQ SCH ×2 (00:01→05:27)
[2016-09-13] MEDS: CEFEPIME INJ 2,000 MG in SODIUM CHLORIDE 0.9% INJ 100 ML IV SCH ×2 (00:03→08:42)
[2016-09-13] MEDS: FOSPHENYTOIN SODIUM 100 MG PE/2 ML VIAL IV SCH ×3 (00:05→12:00)
[2016-09-13] MEDS: MICAFUNGIN INJ 150 MG in SODIUM CHLORIDE 0.9% INJ 100 ML IV SCH (00:05)
[2016-09-13] MEDS: VANCOMYCIN 1,000 MG/NS 250 ML IV SCH ×4 (00:06→08:41)
[2016-09-13] MEDS ORDERED: POTASSIUM CHLORIDE INJ 40 MEQ in SODIUM CHLORID 0.9% 500 ML INJ 500 ML IV-CENTRAL ONE (02:15)
[2016-09-13] MEDS: ARTIFICIAL TEARS OPTH SOLN 15 ML BTL EACH EYE SCH ×2 (02:29→10:00)
[2016-09-13] MEDS: EPOPROSTENOL NEB SOLUTION 50 NG/KG/MIN 100 ML NEB SCH ×4 (02:44→11:26)
[2016-09-13] MEDS: CHLORHEXIDINE GLUCONATE 2 % 1 PACK (2 CLOTHS) TOP SCH (02:44)
[2016-09-13] MEDS ORDERED: FUROSEMIDE 40 MG/4 ML VIAL IV PUSH SCH (03:00)
[2016-09-13] MEDS: fentaNYL DRIP 250 ML IV SCH ×2 (03:15→12:55)
[2016-09-13 03:24] LABS: BLOOD GAS BASE EXCESS -3.5 mmol/L (-2-2); BLOOD GAS CARBOXYHEMOGLOBIN 1.4 % (0-4); BLOOD GAS HCO3 24 mmol/L (22-26); BLOOD GAS METHEMOGLOBIN 0.7 % (0-2); BLOOD GAS O2 HGB SATURATION 88 % (90-100); BLOOD GAS OXYGEN CONTENT 9.5 Vol % (12.0-20.0); BLOOD GAS PCO2 74 mmHg (38-42); BLOOD GAS PO2 69 mmHg (61-120); BLOOD GAS TOTAL HGB 7.6 G/DL (12.0-16.0); TEMP CORR TO 98.6
[2016-09-13 03:25] LABS: FIO2 100 %; OXYGEN DEVICE VENTILATOR; VENT SETTINGS RR20 16 PEEP
[2016-09-13 03:26] LABS: STAT NO
[2016-09-13] MEDS: METOCLOPRAMIDE HCL 10 MG/2 ML VIAL IV PUSH SCH ×2 (05:24→12:53)
[2016-09-13 05:26] LABS: AUTOMATED NEUTROPHIL # 16.6 TH/MM3 (1.8-7.7); BASOPHIL # 0.2 TH/MM3 (0-0.2); BASOPHIL % 0.8 % (0.0-2.0); EOSINOPHIL # 0.1 TH/MM3 (0-0.4); EOSINOPHIL % 0.7 % (0.0-4.0); LYMPHOCYTE # 1.4 TH/MM3 (1.0-4.8); MEAN CELL VOLUME 89.5 FL (80.0-100.0); MEAN CORPUSCULAR HEMOGLOBIN 27.7 PG (27.0-34.0); MONO % 6.3 % (0.0-8.0); NEUT % 85.2 % (16.0-70.0); PLATELET COUNT 208 TH/MM3 (150-450); RED BLOOD COUNT 2.68 MIL/MM3 (4.50-5.90); WHITE BLOOD COUNT 19.5 TH/MM3 (4.0-11.0)
[2016-09-13] MEDS: CISATRACURIUM INJ 100 MG in SODIUM CHLOR 0.9% 250 ML INJ 240 ML IV SCH (05:28)
[2016-09-13] MEDS ORDERED: BUMETANIDE INJ 1 MG/4 ML VIAL IV PUSH ONE (05:30)
[2016-09-13] MEDS: LACOSAMIDE INJ 50 MG in SODIUM CHLORIDE 0.9% INJ 100 ML IV SCH ×2 (05:32→12:52)
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
[2016-09-13 05:36] LABS: HEMO FLAGS AUTO DIFF
[2016-09-13 05:51] LABS: BICARBONATE 23.6 MEQ/L (21.0-32.0); CALCIUM-PROTEIN CORRECTED 7.9 MG/DL (8.5-10.1); MAGNESIUM 2.6 MG/DL (1.5-2.5); POTASSIUM 5.1 MEQ/L (3.5-5.1); TOTAL BILIRUBIN ADULT 1.7 MG/DL (0.2-1.0)
[2016-09-13] MEDS ORDERED: DEXTROSE 50% IN WATER 50 ML VIAL(D50) IV PRN (06:00)
[2016-09-13] MEDS: INSULIN ASPART SUPPLEMENTAL SCALE SQ SCH ×3 (06:00→12:53)
[2016-09-13] MEDS ORDERED: INSULIN HUMAN REGULAR 1,000 UNITS/10 ML VIAL SQ ONE (06:00)
[2016-09-13] MEDS ORDERED: GLUCAGON 1 MG/ML VIAL OTHER PRN (06:00)
[2016-09-13] MEDS: AMANTADINE HCL SOLN 100 MG/10 ML UDC PO SCH ×2 (06:07→12:00)
[2016-09-13 06:11] LABS: BLOOD GAS CARBOXYHEMOGLOBIN 1.4 % (0-4); BLOOD GAS HCO3 24 mmol/L (22-26); BLOOD GAS O2 HGB SATURATION 79 % (90-100); BLOOD GAS OXYGEN CONTENT 8.2 Vol % (12.0-20.0); BLOOD GAS PCO2 75 mmHg (38-42); BLOOD GAS PO2 55 mmHg (61-120); BLOOD GAS TOTAL HGB 7.3 G/DL (12.0-16.0); TEMP CORR TO 98.6
[2016-09-13 06:12] LABS: CRITICAL VALUE YES; OXYGEN DEVICE BIPAP
[2016-09-13 06:13] LABS: DRAW SITE A; FIO2 70 %; STAT NO
--- NOTE | 2016-09-13 06:56 | RADRPT ---
EXAM DATE/TIME: 09/13/2016 05:31 [facility] COMPARISON: CHEST SINGLE AP, September 11, 2016, 4:04. INDICATIONS : Short of breath. MEDICAL HISTORY : Cardiovascular disease. SURGICAL HISTORY : CABG. ENCOUNTER: Subsequent ACUITY: 3 weeks PAIN SCORE: Non-responsive. LOCATION: Bilateral chest FINDINGS: Extensive bilateral airspace opacities persist with a midlung predominance, neither side significantl y changed. No large effusion noted. No pneumothorax. Heart size stable, within normal limits. Endotracheal tube tip is approximately 2 cm above the caity. Nasogastric tube courses into the stoma ch. There is a left internal jugular central venous catheter are again noted, tip in the superior rohith a cava. CONCLUSION: No significant change. Bilateral airspace opacities persist. Gonzales Harper MD on September 13, 2016 at 6:54 Board Certified Radiologist. This report was verified electronically.
[2016-09-13] MEDS ORDERED: BUMETANIDE INJ 100 ML IV SCH (07:30)
[2016-09-13 07:48] LABS: BLOOD GAS BASE EXCESS -0.4 mmol/L (-2-2); BLOOD GAS CARBOXYHEMOGLOBIN 1.8 % (0-4); BLOOD GAS HCO3 25 mmol/L (22-26); BLOOD GAS METHEMOGLOBIN 0.9 % (0-2); BLOOD GAS O2 HGB SATURATION 90 % (90-100); BLOOD GAS PCO2 50 mmHg (38-42); BLOOD GAS PO2 64 mmHg (61-120); BLOOD GAS TOTAL HGB 7.1 G/DL (12.0-16.0); TEMP CORR TO 98.6
[2016-09-13 07:49] LABS: BANDS 29 % (0-6); BASOPHILS 1 % (0-2); CORRECTED NUCLEATED RBC 9 /100 WBC (0-0); EOSINOPHILS 1 % (0-4); METAMYELOCYTES 6 % (0-1); MYELOCYTES 2 % (0-0); NEUTROPHIL # MANUAL DIFF 17.6 TH/MM3 (1.8-7.7); POLYS (SEG NEUTROPHILS) 53 % (16-70); WBC DIFF SAMPLE 100
[2016-09-13 07:49] LABS: CRITICAL VALUE NO; OXYGEN DEVICE VENTILATOR
[2016-09-13 07:50] LABS: DRAW SITE ART LINE; FIO2 80 %; STAT NO; VENT SETTINGS PRVC/VT550/R24/P14
[2016-09-13 07:50] LABS: KERATOCYTES OCC (NORMAL); PLATELET ESTIMATE SMEAR NORMAL (NORMAL); PLATELET MORPHOLOGY NORMAL (NORMAL)
[2016-09-13 07:51] LABS: SCAN/DIFF FINAL DIFF MANUAL
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
[2016-09-13] MEDS: MIDAZOLAM 100 MG/ML INJ 100 ML IV SCH (08:40)
[2016-09-13] MEDS: levETIRAcetam INJ 1,500 MG in SODIUM CHLORIDE 0.9% INJ 100 ML IV SCH (08:41)
[2016-09-13] MEDS: LACTULOSE SYRUP 20 GM/30 ML CUP PO SCH (08:42)
[2016-09-13] MEDS: SODIUM CHLORIDE 0.9% FLUSH 5 ML FLUSH IVF SCH (08:42)
[2016-09-13] MEDS: SODIUM CHLORIDE 0.9% FLUSH 10 ML FLUSH IVF SCH (08:42)
[2016-09-13] MEDS: PANTOPRAZOLE SODIUM 40 MG VIAL IVP SCH (08:42)
[2016-09-13] MEDS: DOCUSATE SODIUM 50 MG/SENNA 8.6 MG TAB PO SCH (08:43)
[2016-09-13] MEDS ORDERED: PHARMACY ORDERED LAB ONE (08:45)
[2016-09-13] MEDS: CHLORHEXIDINE 0.12% (ORAL KIT) 15 ML CUP MT SCH (08:48)
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
[2016-09-13 09:39] LABS: BLOOD GAS BASE EXCESS -1.3 mmol/L (-2-2); BLOOD GAS CARBOXYHEMOGLOBIN 1.6 % (0-4); BLOOD GAS HCO3 26 mmol/L (22-26); BLOOD GAS METHEMOGLOBIN 0.9 % (0-2); BLOOD GAS O2 HGB SATURATION 88 % (90-100); BLOOD GAS OXYGEN CONTENT 9.2 Vol % (12.0-20.0); BLOOD GAS PCO2 70 mmHg (38-42); BLOOD GAS PO2 70 mmHg (61-120); BLOOD GAS TOTAL HGB 7.3 G/DL (12.0-16.0); TEMP CORR TO 98.6
[2016-09-13 09:40] LABS: CRITICAL VALUE YES; DRAW SITE ART LINE; FIO2 80 %; OXYGEN DEVICE VENTILATOR; STAT NO; VENT SETTINGS PC/IP20/R24/P14
[2016-09-13] MEDS ORDERED: CHLOROTHIAZIDE SOD 500 MG VIAL IV ONE (10:00)
[2016-09-13] MEDS ORDERED: ALBUMIN HUMAN 25% 25 GM/100 ML BAGP IV ONE (10:00)
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
[2016-09-13 11:11] LABS: BLOOD GAS CARBOXYHEMOGLOBIN 1.9 % (0-4); BLOOD GAS HCO3 25 mmol/L (22-26); BLOOD GAS METHEMOGLOBIN 0.9 % (0-2); BLOOD GAS O2 HGB SATURATION 92 % (90-100); BLOOD GAS OXYGEN CONTENT 9.7 Vol % (12.0-20.0); BLOOD GAS PCO2 61 mmHg (38-42); BLOOD GAS PO2 79 mmHg (61-120); BLOOD GAS TOTAL HGB 7.4 G/DL (12.0-16.0); CRITICAL VALUE YES; OXYGEN DEVICE VENTILATOR; TEMP CORR TO 98.6
[2016-09-13 11:12] LABS: DRAW SITE ART LINE; FIO2 100 %; STAT NO; VENT SETTINGS PRVC/VT400/R28/P10
[2016-09-13] MEDS: 3% SALINE INJ 500 ML IV SCH (11:27)
--- NOTE | 2016-09-13 11:43 | HHI.HCPN ---
Reason for visit a. To assist with evaluation and management of symptoms including: dyspnea, encephalopathy, seizures b. To assist medical decision maker(s) with: better understanding of current medical conditions; weighing benefits/burdens of medical treatment options; making medical treatment decisions. Subjective/Interval History Pt seen to follow up w family re goals of treatment.Palliative received voicemail from daughter, requesting follow up regarding possible transition to comfort today. Patient still with high ventilator requirements overnight, PEEP up to 14, 80% FiO2. Chest x-ray with no significant changes still with bilateral airspace opacity. Probable ARDS. Patient not a candidate for prone therapy due to cerebral edema , s/p crani. Overall condition worsening BUN [id number]-->37-- >48. Tmax 99.2. Sputum from 09/11 positive for gram-negative rods, blood cultures no growth 2 days. Still requiring neuromuscular blockade Nimbex, as well as fentanyl and Versed. Nursing titrating Levophed for hypotension. Discussed with primary nurse, Dr. Marina. Met with daughter, son, [id number]. They were able to meet with neurology yesterday afternoon/evening to further discuss prognosis. While they were still hopeful that they may continue to monitor for neurological improvements, they are overall concerned with patient general condition deteriorating and likely progressing to multiorgan failure. They were able to meet at length with critical care this morning. They appear to have a good understanding of overall conditions, prognosis, possible trajectory going forward. They continue to endorse that the patient would not want to proceed with intervention such as tracheostomy, PEG tube or other aggressive interventions if he would not make a near full functional and cognitive recovery. They endorsed that he would not want to live in a dependent state. They request to transition to comfort focused treatment only/withdrawal of life support later today. Anticipatory guidance provided. Discuss spiritual preferences, they endorse patient might want anointing of the sick, notified hospital quality assurance practice manager who will provide. Have discussed with critical care, Nimbex to be discontinued-- critical care will reassess neuro exam post discontinuation of neuromuscular blockade at 2 hours, need to wait a minimum of 2 hours post Nimbex DC for withdrawal. Orders for comfort medications etc. to be entered at time of withdrawal. Exhibits B, C signed and placed in chart. . Advance Directives Living Will: Never completed Health Care Surrogate: Never completed Durable Power of District Traffic Chief: Never completed Objective Vital Signs Date Time Temp Pulse Resp B/P Pulse Ox O2 Delivery O2 Flow Rate FiO2 09/13/16 07:35 97 80 09/13/16 07:00 97 Mechanical Ventilator 100 09/13/16 06:00 105 09/13/16 04:00 99.1 121 20 120/75 96 115/83 09/13/16 04:00 100 09/13/16 04:00 121 09/13/16 03:45 96 100 09/13/16 02:00 124 09/13/16 00:37 93 80 09/13/16 00:00 80 09/13/16 00:00 99.2 127 20 115/86 92 118/75 09/13/16 00:00 127 09/12/16 22:37 93 80 09/12/16 22:00 127 09/12/16 20:00 80 09/12/16 20:00 123 09/12/16 20:00 98.3 123 20 123/80 95 135/87 09/12/16 19:00 96 Mechanical Ventilator 80 09/12/16 18:00 118 09/12/16 16:00 97.4 121 21 120/74 93 137/84 09/12/16 16:00 80 09/12/16 16:00 121 09/12/16 15:33 92 80 09/12/16 14:00 116 09/12/16 13:37 90 65 09/12/16 12:00 108 09/12/16 12:00 60 09/12/16 12:00 96.6 108 20 120/78 88 144/83 Intake & Output 09/13/16 09/13/16 06:59 18:59 Intake Total 4462 ml Output Total 2500.0 ml Balance 1962.0 ml IV Total 3651 ml Tube Feeding 811 ml Output Urine Total 2500 ml Stool Total 0 ml Tube Feeding Residual Discard 0 ml Physical Exam CONSTITUTIONAL/GENERAL: This is an adequately nourished patient, in no apparent distress, nonresponsive on mech vent. TUBES/LINES/DRAINS:central line, ETT, OGT, Early, SCDs, soft restraints BUE, arterial line HEAD: healing incision rt head, sommer have been removed CARDIOVASCULAR: Regular rate and rhythm , no murmurs.+ generalized edema to entire body: Trunk, extremities RESPIRATORY/CHEST: Symmetric, unlabored respirations via mech vent. No Spontaneous respirations over vent rate 20. Course rhonchi throughout, + Crackles GASTROINTESTINAL: Abdomen soft, flat, unable to determine tenderness, mildly distended. Hypoactive bowel sounds. GENITOURINARY: Without palpable bladder distension. Early catheter in place. Clear dark yellow urine. NEUROLOGICAL: sedated/nonresponsive. no withdrawal to pain stimuli. No eye opening. pupils: Left slightly larger than right 3mm/2mm, questionable reaction to light. PSYCHIATRIC: sedated/limited assess due to condition. . Diagnostic Tests Laboratory Laboratory Tests Test 09/11/16 09/11/16 09/11/16 09/12/16 04:40 07:28 08:45 10:55 White Blood Count 21.7 TH/MM3 19.0 TH/MM3 (4.0-11.0) (4.0-11.0) Red Blood Count 2.73 MIL/MM3 2.67 MIL/MM3 (4.50-5.90) (4.50-5.90) Hemoglobin 7.5 GM/DL 7.4 GM/DL (13.0-17.0) (13.0-17.0) Hematocrit 23.5 % 23.5 % (39.0-51.0) (39.0-51.0) Mean Corpuscular Volume 86.2 FL 87.7 FL (80.0-100.0) (80.0-100.0) Mean Corpuscular Hemoglobin 27.3 PG 27.6 PG (27.0-34.0) (27.0-34.0) Mean Corpuscular Hemoglobin 31.7 % 31.4 % Concent (32.0-36.0) (32.0-36.0) Red Cell Distribution Width 15.2 % 15.8 % (11.6-17.2) (11.6-17.2) Platelet Count 265 TH/MM3 173 TH/MM3 (150-450) (150-450) Mean Platelet Volume 9.6 FL 8.8 FL (7.0-11.0) (7.0-11.0) Neutrophils (%) (Auto) 85.9 % (16.0-70.0) Lymphocytes (%) (Auto) 5.6 % (9.0-44.0) Monocytes (%) (Auto) 3.9 % (0.0-8.0) Eosinophils (%) (Auto) 4.3 % (0.0-4.0) Basophils (%) (Auto) 0.3 % (0.0-2.0) Neutrophils # (Auto) 18.7 TH/MM3 (1.8-7.7) Lymphocytes # (Auto) 1.2 TH/MM3 (1.0-4.8) Monocytes # (Auto) 0.9 TH/MM3 (0-0.9) Eosinophils # (Auto) 0.9 TH/MM3 (0-0.4) Basophils # (Auto) 0.1 TH/MM3 (0-0.2) CBC Comment AUTO DIFF Differential Total Cells 100 Counted Neutrophils % (Manual) 69 % (16-70) Band Neutrophils % 11 % (0-6) Lymphocytes % 12 % (9-44) Eosinophils % 4 % (0-4) Neutrophils # (Manual) 18.2 TH/MM3 (1.8-7.7) Metamyelocytes 3 % (0-1) Myelocytes 1 % (0-0) Differential Comment FINAL DIFF MANUAL Platelet Estimate NORMAL (NORMAL) Platelet Morphology Comment NORMAL (NORMAL) Keratocytes OCC (NORMAL) Sodium Level 153 MEQ/L 153 MEQ/L (136-145) (136-145) Potassium Level 3.0 MEQ/L 4.2 MEQ/L (3.5-5.1) (3.5-5.1) Chloride Level 117 MEQ/L 119 MEQ/L (98-107) (98-107) Carbon Dioxide Level 29.0 MEQ/L 26.1 MEQ/L (21.0-32.0) (21.0-32.0) Anion Gap 7 MEQ/L (5-15) 8 MEQ/L (5-15) Blood Urea Nitrogen 19 MG/DL (7-18) 37 MG/DL (7-18) Creatinine 0.63 MG/DL 0.88 MG/DL (0.60-1.30) (0.60-1.30) Estimat Glomerular Filtration 129 ML/MIN 88 ML/MIN (>89) Rate (>89) Random Glucose 156 MG/DL 327 MG/DL (74-106) (74-106) Calcium Level 6.9 MG/DL 7.4 MG/DL (8.5-10.1) (8.5-10.1) Protein Corrected Calcium 7.7 MG/DL 8.3 MG/DL (8.5-10.1) (8.5-10.1) Phosphorus Level 2.1 MG/DL (2.5-4.9) Magnesium Level 2.4 MG/DL (1.5-2.5) Total Bilirubin 2.4 MG/DL 2.2 MG/DL (0.2-1.0) (0.2-1.0) Aspartate Amino Transf 35 U/L (15-37) 51 U/L (15-37) (AST/SGOT) Alanine Aminotransferase 48 U/L (12-78) 51 U/L (12-78) (ALT/SGPT) Alkaline Phosphatase 410 U/L 363 U/L (45-117) (45-117) Total Protein 5.5 GM/DL 5.5 GM/DL (6.4-8.2) (6.4-8.2) Albumin 1.0 GM/DL 1.0 GM/DL (3.4-5.0) (3.4-5.0) Blood Gas Puncture Site ART LINE Blood Gas Patient Temperature 98.6 Blood Gas HCO3 26 mmol/L (22-26) Blood Gas Base Excess 0.6 mmol/L (-2-2) Blood Gas Oxygen Saturation 90 % (90-100) Arterial Blood pH 7.34 (7.380-7.420) Arterial Blood Partial 49 mmHg (38-42) Pressure CO2 Arterial Blood Partial 68 mmHg Pressure O2 (61-120) Arterial Blood Oxygen Content 9.5 Vol % (12.0-20.0) Arterial Blood 1.4 % (0-4) Carboxyhemoglobin Arterial Blood Methemoglobin 0.7 % (0-2) Blood Gas Hemoglobin 7.5 G/DL (12.0-16.0) Oxygen Delivery Device VENTILATOR Blood Gas Ventilator Setting Blood Gas Inspired Oxygen 100 % Vancomycin Level Trough 18.4 MCG/ML (5.0-10.0) Test 09/13/16 09/13/16 09/13/16 09/13/16 03:00 04:55 05:05 07:35 Blood Gas Puncture Site A A ART LINE Blood Gas Patient Temperature 98.6 98.6 98.6 Blood Gas HCO3 24 mmol/L 24 mmol/L 25 mmol/L (22-26) (22-26) (22-26) Blood Gas Base Excess -3.5 mmol/L -4.0 mmol/L -0.4 mmol/L (-2-2) (-2-2) (-2-2) Blood Gas Oxygen Saturation 88 % (90-100) 79 % (90-100) 90 % (90-100) Arterial Blood pH 7.14 7.13 7.32 (7.380-7.420) (7.380-7.420) (7.380-7.420) Arterial Blood Partial 74 mmHg (38-42) 75 mmHg (38-42) 50 mmHg (38-42) Pressure CO2 Arterial Blood Partial 69 mmHg 55 mmHg 64 mmHg Pressure O2 (61-120) (61-120) (61-120) Arterial Blood Oxygen Content 9.5 Vol % 8.2 Vol % 9.0 Vol % (12.0-20.0) (12.0-20.0) (12.0-20.0) Arterial Blood 1.4 % (0-4) 1.4 % (0-4) 1.8 % (0-4) Carboxyhemoglobin Arterial Blood Methemoglobin 0.7 % (0-2) 1.0 % (0-2) 0.9 % (0-2) Blood Gas Hemoglobin 7.6 G/DL 7.3 G/DL 7.1 G/DL (12.0-16.0) (12.0-16.0) (12.0-16.0) Oxygen Delivery Device VENTILATOR BIPAP VENTILATOR Blood Gas Ventilator Setting RR20 16 PEEP 8/12/RATE 12 PRVC/VT550/R24/P14 Blood Gas Inspired Oxygen 100 % 70 % 80 % White Blood Count 19.5 TH/MM3 (4.0-11.0) Red Blood Count 2.68 MIL/MM3 (4.50-5.90) Hemoglobin 7.4 GM/DL (13.0-17.0) Hematocrit 24.0 % (39.0-51.0) Mean Corpuscular Volume 89.5 FL (80.0-100.0) Mean Corpuscular Hemoglobin 27.7 PG (27.0-34.0) Mean Corpuscular Hemoglobin 31.0 % Concent (32.0-36.0) Red Cell Distribution Width 17.0 % (11.6-17.2) Platelet Count 208 TH/MM3 (150-450) Mean Platelet Volume 11.2 FL (7.0-11.0) Neutrophils (%) (Auto) 85.2 % (16.0-70.0) Lymphocytes (%) (Auto) 7.0 % (9.0-44.0) Monocytes (%) (Auto) 6.3 % (0.0-8.0) Eosinophils (%) (Auto) 0.7 % (0.0-4.0) Basophils (%) (Auto) 0.8 % (0.0-2.0) Neutrophils # (Auto) 16.6 TH/MM3 (1.8-7.7) Lymphocytes # (Auto) 1.4 TH/MM3 (1.0-4.8) Monocytes # (Auto) 1.2 TH/MM3 (0-0.9) Eosinophils # (Auto) 0.1 TH/MM3 (0-0.4) Basophils # (Auto) 0.2 TH/MM3 (0-0.2) CBC Comment AUTO DIFF Differential Total Cells 100 Counted Neutrophils % (Manual) 53 % (16-70) Band Neutrophils % 29 % (0-6) Lymphocytes % 4 % (9-44) Monocytes % 4 % (0-8) Eosinophils % 1 % (0-4) Basophils % 1 % (0-2) Neutrophils # (Manual) 17.6 TH/MM3 (1.8-7.7) Metamyelocytes 6 % (0-1) Myelocytes 2 % (0-0) Nucleated Red Blood Cells 9 /100 WBC (0-0) Differential Comment FINAL DIFF MANUAL Platelet Estimate NORMAL (NORMAL) Platelet Morphology Comment NORMAL (NORMAL) Keratocytes OCC (NORMAL) Sodium Level 155 MEQ/L (136-145) Potassium Level 5.1 MEQ/L (3.5-5.1) Chloride Level 123 MEQ/L (98-107) Carbon Dioxide Level 23.6 MEQ/L (21.0-32.0) Anion Gap 8 MEQ/L (5-15) Blood Urea Nitrogen 48 MG/DL (7-18) Creatinine 1.19 MG/DL (0.60-1.30) Estimat Glomerular Filtration 62 ML/MIN (>89) Rate Random Glucose 419 MG/DL (74-106) Calcium Level 7.1 MG/DL (8.5-10.1) Protein Corrected Calcium 7.9 MG/DL (8.5-10.1) Phosphorus Level 3.1 MG/DL (2.5-4.9) Magnesium Level 2.6 MG/DL (1.5-2.5) Total Bilirubin 1.7 MG/DL (0.2-1.0) Aspartate Amino Transf 83 U/L (15-37) (AST/SGOT) Alanine Aminotransferase 77 U/L (12-78) (ALT/SGPT) Alkaline Phosphatase 410 U/L (45-117) Total Protein 5.5 GM/DL (6.4-8.2) Albumin 1.0 GM/DL (3.4-5.0) Test 09/13/16 09/13/16 09/13/16 09:15 09:20 10:55 Vancomycin Level Trough 27.5 MCG/ML (5.0-10.0) Blood Gas Puncture Site ART LINE ART LINE Blood Gas Patient Temperature 98.6 98.6 Blood Gas HCO3 26 mmol/L 25 mmol/L (22-26) (22-26) Blood Gas Base Excess -1.3 mmol/L -1.0 mmol/L (-2-2) (-2-2) Blood Gas Oxygen Saturation 88 % (90-100) 92 % (90-100) Arterial Blood pH 7.19 7.25 (7.380-7.420) (7.380-7.420) Arterial Blood Partial 70 mmHg (38-42) 61 mmHg (38-42) Pressure CO2 Arterial Blood Partial 70 mmHg 79 mmHg Pressure O2 (61-120) (61-120) Arterial Blood Oxygen Content 9.2 Vol % 9.7 Vol % (12.0-20.0) (12.0-20.0) Arterial Blood 1.6 % (0-4) 1.9 % (0-4) Carboxyhemoglobin Arterial Blood Methemoglobin 0.9 % (0-2) 0.9 % (0-2) Blood Gas Hemoglobin 7.3 G/DL 7.4 G/DL (12.0-16.0) (12.0-16.0) Oxygen Delivery Device VENTILATOR VENTILATOR Blood Gas Ventilator Setting PC/IP20/R24/P14 PRVC/VT400/R28/P10 Blood Gas Inspired Oxygen 80 % 100 % Result Diagram: 09/13/16 0505 09/13/16 0505 Microbiology Microbiology Date/Time Procedure Status Source Growth 09/11/16 00:20 Aerobic Blood Culture - Preliminary Resulted Blood Peripheral Gram Negative Jignesh 09/11/16 00:20 Anaerobic Blood Culture - Preliminary Resulted Blood Peripheral NO GROWTH IN 2 DAYS 09/11/16 00:25 Gram Stain - Final Resulted Sputum Endotracheal 09/11/16 00:25 Sputum Culture - Preliminary Resulted Gram Negative Jignesh 09/11/16 00:35 Aerobic Blood Culture - Preliminary Resulted Blood Peripheral Gram Negative Jignesh 09/11/16 00:35 Anaerobic Blood Culture - Preliminary Resulted Blood Peripheral NO GROWTH IN 2 DAYS 09/11/16 04:40 Urine Culture - Final Complete Urine Catheterized Urine NO GROWTH IN 48 HOURS. Procedures 08/28 Right frontotemporal parietal decompressive craniotomy with placement ICP monitor Assessment and Plan Disease Oriented Problem List: (1) Subdural hematoma Comment: s/p right frontotemporal parietal decompressive craniotomy 08/28 (2) Respiratory failure (3) Hypernatremia (4) Seizure (5) Serratia marcescens infection Comment: pneumonia Symptom Scale: (1) Dysphagia 0-10 Scale: Unable to quantify (2) Encephalopathy 0-10 Scale: Unable to quantify (3) Seizure 0-10 Scale: Unable to quantify Pertinent Non-Medical Issues Psychosocial:[place]. to( second) since 2007. 2 adult children ( from 2st marriage) . daughter lives in [place], is ICU nurse. Son lives in [place], is a [employer] pilot plant technician. Pt is retired from the [place] [employer], retired early in the past couple years to enjoy and active usp. Pt just bought a home/ moved to [facility] 2 mos ago. Traveled to this area to [place]. Supported by multiple siblings Spiritual:Yazidism, family does not desire quality assurance practice manager support at this time Legal: per [place] statutes would be legal decision maker ( no living will or advanced directive). defers to pt 2 adult children (from prior marriage). Son wants daughter, who is an RN to act as primary proxy. They are all working together on decisions, supporting one another. Ethical issues impacting care: Important Contacts daughter Rita (pronounced "Ween") Ron [phone] serving as healthcare proxy ([place]) EMAIL: [email or web address] - ([place]-[facility]) Son- Ashli Velasquez ([place]) . Prognosis This patient was admitted 08/28 with a severe traumatic brain injury requiring emergent evacuation by neurosurgery as a life-saving measure. He has remained in critical condition on mechanical vent. . Code Status: Alternative Code Plan * Legal decision maker: per [place] statutes would be legal decision maker ( no living will or advanced directive). defers to pt 2 adult children (from prior marriage). Son wants daughter, who is an RN to act as primary proxy. They are all working together on decisions, supporting one another. * ALT CODE - intub/shock/acls drugs * Today have met with son, daughter (patient defers to the 2 adult children ), who are well supported by the rest of the patient's family. They have all elected to transition to comfort focus, withdrawal of life support later today after ongoing conversations with multiple patient providers. They have endorsed that patient would not want to live in a dependent fashion nor would he want to continue with invasive measures if he is not expected to make a near full functional/cognitive recovery. * Exhibits B, signed by 2 adult children, placed in chart. Exhibits C also signed by appropriate MDs. * Orders for comfort medications etc. to be entered at time of withdrawal. Time of withdrawal likely to be sometime after 1 PM today. Exhibits B, C signed and placed in chart. * SYMPTOMS: --encephalopathy- 2/2 severe TBI, SDH s/p emergent crani. Poor neuro response thus far. EEG severe slowing, + seizures, requiring multiple antiseizure medications. Most recent repeat EEG with no seizure activity identified. REpeat EEG pending today. REpeat MRI ordered-pending pt stable enough to obtain. now req. paralytic for ARDS, no gag, no withdrawal. Nimbex discontinued at 11 AM--radical care to reassess neuro status around 1 PM. -- dyspnea- intubated emergently for airway protection 2/2 severe TBI. + ARDS , worsening CXR over the weekend, req. increased ventilator support, + flolan, neuromuscular blockade -- seizures - managed per neurology, had recurrent sz despite keppra, Keppra increased, dilantin added, Vimpat added ; no seizure activity noted, repeat EEG ordered for today -- pain- no chronic pain syndromes. potential sources include bedbound status , recent invasive procedures / no sx pain currently / will cont to evaluate -- no new medication recommendations at this time. Palliative care will assist with orders if family elects to transition to comfort measures. * Palliative care will continue to follow during hospital course as condition evolves, to assist patient/decision-maker with understanding of medical conditions, weighing benefits/burdens of treatment options, for clarification of goals of treatment. Additionally will assist with any symptoms of palliative concern. . . Attestation To help prompt me to consider important information that might be impacting today's encounter and assessment, information from prior notes written by myself or my colleagues may have been "brought forward" into today's note. My signature on this note, however, is an attestation that I personally performed the exam, history, and/or decision-making noted today, and, unless otherwise indicated, the interactions with patient, family, and staff as well as the review of records all occurred today. I also attest that the listed assessment and stated plan reflect my best clinical judgment today based on the combination of historical information, prior notes, and today's exam/ interactions. When time spent is documented, it refers only to time spent today by the signer, or if indicated, combined time spent today by collaborating physician/nurse practitioner. Corrine Arteaga Sep 13, 2016 11:43
[2016-09-13] MEDS: LEVOFLOXACIN 750 MG PREMIX INJ 150 ML IV SCH (12:52)
[2016-09-13] MEDS ORDERED: HYOSCYAMINE 0.125 MG TAB PO/SL ONE (14:45)
[2016-09-13] MEDS ORDERED: MIDAZOLAM 100 MG/ML INJ 100 ML IV SCH (14:45)
[2016-09-13] MEDS ORDERED: LORazepam 2 MG/ML VIAL IV ONE ×2 (14:45→15:00)
[2016-09-13] MEDS ORDERED: fentaNYL DRIP 250 ML IV SCH (14:45)
[2016-09-13] MEDS ORDERED: FUROSEMIDE 20 MG/2 ML VIAL IV PRN (15:15)
[2016-09-13] MEDS ORDERED: LORazepam 2 MG/ML VIAL IVS PRN (15:15)
[2016-09-13] MEDS ORDERED: BISACODYL 10 MG SUPP RECTAL PRN (15:15)
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
--- NOTE | 2016-09-14 07:06 | MG ---
cc: MOUNIKA SUNSHINE MD Lab No: [id number] Date: 09/13/2016 Age: 61 Sex: M Race: EEG RECORD NUMBER [id number] DATE OF 1955 INDICATIONS FOR PROCEDURE A 61-year-old with subdural hematoma, craniotomy. FINDINGS Generalized delta activity, 1-3 Hz occurring with theta intrusion in the right frontal region, 20-50 microvolts. No driving on photic stimulation. Single lead EKG showing sinus rhythm. INTERPRETATION Moderate to severe encephalopathy without the presence of any epileptic activity. Clinical correlation. Mounika Sunshine MD MG/SSB /6:38 AM /7:00 AM
[2016-09-14 07:26] LABS: CRITICAL VALUE YES; DRAW SITE ART LINE
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
== END 2016-09-13 19:53 | disposition expired | DRG 25 ==
LOC: NEPI 10:36 → EDBD 11:16 → NEDA 11:16 → N03A 14:00
PROVIDERS: ADMIT Surgery; ATTEND Surgery
PROC: 5A1955Z Respiratory Ventilation, Greater than 96 Consecutive Hours (ICD-10-PCS; 2016-08-28)
PROC: 00H032Z Insertion of Monitoring Device into Brain, Percutaneous Approach (ICD-10-PCS; 2016-08-28)
PROC: 30253R1 (ICD-10-PCS; 2016-08-28)
PROC: 0BH17EZ Insertion of Endotracheal Airway into Trachea, Via Natural or Artificial Opening (ICD-10-PCS; 2016-08-28)
PROC: 00C40ZZ Extirpation of Matter from Intracranial Subdural Space, Open Approach (ICD-10-PCS; principal; 2016-08-28 11:27)
PROC: 30253N1 (ICD-10-PCS; 2016-08-29)
PROC: 02HV33Z Insertion of Infusion Device into Superior Vena Cava, Percutaneous Approach (ICD-10-PCS; 2016-09-04)
PROC: B544ZZA Ultrasonography of Left Jugular Veins, Guidance (ICD-10-PCS; 2016-09-04)
PROC: 0BC68ZZ Extirpation of Matter from Right Lower Lobe Bronchus, Via Natural or Artificial Opening Endoscopic (ICD-10-PCS; 2016-09-04)
PROC: 0BC58ZZ Extirpation of Matter from Right Middle Lobe Bronchus, Via Natural or Artificial Opening Endoscopic (ICD-10-PCS; 2016-09-04)
PROC: 0BC78ZZ Extirpation of Matter from Left Main Bronchus, Via Natural or Artificial Opening Endoscopic (ICD-10-PCS; 2016-09-04)
PROC: 0BH17EZ Insertion of Endotracheal Airway into Trachea, Via Natural or Artificial Opening (ICD-10-PCS; 2016-09-08)
DX: R65.21 Severe sepsis with septic shock; J96.01 Acute respiratory failure with hypoxia; J69.0 Pneumonitis due to inhalation of food and vomit; G93.6 Cerebral edema; A41.9 Sepsis, unspecified organism; G93.40 Encephalopathy, unspecified; J15.0 Pneumonia due to Klebsiella pneumoniae; J15.6 Pneumonia due to other Gram-negative bacteria; J15.5 Pneumonia due to Escherichia coli; R56.1 Post traumatic seizures; J80 Acute respiratory distress syndrome; E87.0 Hyperosmolality and hypernatremia; D62 Acute posthemorrhagic anemia; N17.9 Acute kidney failure, unspecified; E44.0 Moderate protein-calorie malnutrition; D69.6 Thrombocytopenia, unspecified; E83.39 Other disorders of phosphorus metabolism; R40.2432 Glasgow coma scale score 3-8, at arrival to emergency department; R00.1 Bradycardia, unspecified; E87.6 Hypokalemia; F01.50 Vascular dementia, unspecified severity, without behavioral disturbance, psychotic disturbance, mood disturbance, and anxiety; I25.10 Atherosclerotic heart disease of native coronary artery without angina pectoris; R40.2430 Glasgow coma scale score 3-8, unspecified time; S00.81XA Abrasion of other part of head, initial encounter; J98.09 Other diseases of bronchus, not elsewhere classified; R13.10 Dysphagia, unspecified; R06.6 Hiccough; E87.70 Fluid overload, unspecified; I27.2 Other secondary pulmonary hypertension; R73.9 Hyperglycemia, unspecified; T45.515A Adverse effect of anticoagulants, initial encounter; V19.9XXA Pedal cyclist (driver) (passenger) injured in unspecified traffic accident, initial encounter; Y93.55 Activity, bike riding; Z51.5 Encounter for palliative care; Z66 Do not resuscitate; Z79.01 Long term (current) use of anticoagulants; Z87.891 Personal history of nicotine dependence; Z95.5 Presence of coronary angioplasty implant and graft
CPT/HCPCS: 31500; 31624; 36430; 36556; 70450; 70486; 71010; 71260; 72125; 72170; 74000; 74177; 76700; 76937; 80048; 80053; 80185; 80186; 80202; 81001; 82247; 82310; 82435; 82565; 82805; 82947; 82948; 83735; 83930; 84100; 84132; 84155; 84295; 84450; 84460; 84520; 85007; 85014; 85018; 85025; 85027; 85384; 85576; 85610; 85730; 86403; 86850; 86900; 86901; 86920; 87015; 87040; 87070; 87077; 87086; 87102; 87116; 87147; 87186; 87205; 87206; 87641; 88304; 89051; 93970; 94002; 94003; 94640; 94664; 94770; 94799; 95819; C9113; C9254; J0131; J0171; J0330; J0461; J0610; J0690; J0692; J1165; J1325; J1580; J1815; J1940; J1953; J1956; J2060; J2150; J2248; J2250; J2370; J2405; J2543; J2765; J3010; J3370; J3475; J3480; J7030; J7040; J7050; J7120; P9016; P9035; Q2009; Q9967